=== PATIENT | female | born 1950 | race Caucasian/White ===

== ENCOUNTER 2016-07-01 22:12 | Emergency (ER) | payer OTHER ==
[2016-07-01 22:20] VITALS: BP 148/97; PULSE 118; TEMP 99.3; BMI 28.3
[2016-07-01] MEDS ORDERED: guaiFENesin/D-METHORPHAN HB 10 ML UNIT-DOSE CUPS PO ONE (23:03)
[2016-07-01] MEDS ORDERED: LORATADINE 10 MG TABLET PO ONE (23:03)
--- NOTE | 2016-07-01 23:04 | PDOC ---
History of Present Illness - History of Present Illness Initial Comments: 07/01/16 23:12 Patient is a 66 year old female with significant medical hx of asthma, HTN, HLD , DM, and depression who is presenting to the ED with cough, nausea, and posttussive vomiting for two days. Patient reports when she coughs she becomes short of breath and dizzy; she often vomits after she coughs. The patient also endorses some poor appetite and fever this morning of 101. Denies any sick contacts. Surgical Hx: <Roseanna Bullock - Last Filed: 07/01/16 23:12> <Gab Duran - Last Filed: 07/02/16 06:19> - General Chief Complaint: Respiratory Stated Complaint: ASTHMA Past History <Roseanna Bullock - Last Filed: 07/01/16 23:12> - Past Medical History Anemia: No Asthma: Yes Cancer: No Cardiac Disorders: Yes (palpitations) CVA: No COPD: No CHF: No Dementia: No Diabetes: Yes GI Disorders: No Disorders: Yes (BLADDER PROBLEMS) HTN: Yes Hypercholesterolemia: Yes Liver Disease: Yes (INFLAMMED LIVER) Suicide Attempt (Hx): No Seizures: No Thyroid Disease: No - Psycho/Social/Smoking Cessation Hx Anxiety: No Suicidal Ideation: No Smoking Status: No Smoking History: Never smoked Have you smoked in the past 12 months: No Number of Cigarettes Smoked Daily: 0 Hx Alcohol Use: No Drug/Substance Use Hx: No Substance Use Type: Alcohol Hx Substance Use Treatment: No <Gab Duran - Last Filed: 07/02/16 06:19> - Past Medical History Allergies/Adverse Reactions: Allergies Allergy/AdvReac Type Severity Reaction Status Date / Time Penicillins Allergy Intermediate Rash Verified 07/01/16 22:18 Home Medications: Ambulatory Orders Albuterol Sulfate Inhaler - [Ventolin HFA Inhaler -] 1 - 2 inh PO QID 07/21/15 Aspirin [ASA -] 81 mg PO DAILY 07/21/15 Pantoprazole Sodium [Protonix] 40 mg PO DAILY 07/21/15 Valsartan/Hydrochlorothiazide [Valsartan-Hctz 320-25 mg Tab] 1 each PO DAILY 10/28 Metoprolol Tartrate [Lopressor -] 25 mg PO BID #60 tablet 07/22/15 Albuterol 2.5/Ipratropium 0.5 [Duoneb -] 1 amp NEB Q4HPO amp 07/29/15 Loratadine [Claritin -] 10 mg PO DAILY #30 tablet 12/07/15 Albuterol Sulfate Inhaler - [Ventolin HFA Inhaler -] 2 puff IH Q6H #1 inhaler Benzonatate [Tessalon Pearls -] 100 mg PO TID PRN #21 capsule 07/02/16 Prednisone 60 mg PO DAILY #4 tablet 07/02/16 Sitagliptin Phos/Metformin HCl [Janumet 50-500 mg Tablet] 1 each PO DAILY Review of Systems - Review of Systems Comments:: 07/01/16 23:13 GENERAL/CONSTITUTIONAL: Fever, poor appetite. No chills. No weakness. HEAD, EYES, EARS, NOSE AND THROAT: No change in vision. No ear pain or discharge. No sore throat. CARDIOVASCULAR: No chest pain. RESPIRATORY: Cough with some shortness of breath. No wheezing or hemoptysis. GASTROINTESTINAL: Nausea, vomiting. No diarrhea or constipation. GENITOURINARY: No dysuria, frequency, or change in urination. MUSCULOSKELETAL: No joint or muscle swelling or pain. No neck or back pain. SKIN: No rash NEUROLOGIC: Dizziness. No headache, loss of consciousness, or change in strength /sensation. <Roseanna Bullock - Last Filed: 07/01/16 23:12> *Physical Exam - Vital Signs Last Vital Signs Temp Pulse Resp BP Pulse Ox 99.3 F 118 H 20 148/97 99 07/01/16 22:18 07/01/16 22:18 07/01/16 22:18 07/01/16 22:18 07/01/16 22:18 - Physical Exam Comments: 07/01/16 23:14 GENERAL: Anxious. Awake, alert, and fully oriented HEAD: No signs of trauma EYES: PERRLA, EOMI, sclera anicteric, conjunctiva clear ENT: Auricles normal inspection, hearing grossly normal, nares patent, oropharynx clear without exudates. Moist mucosa NECK: Normal ROM, supple, no lymphadenopathy, JVD, or masses LUNGS: Breath sounds equal, clear to auscultation bilaterally. No wheezes, and no crackles HEART: Regular rate and rhythm, normal S1 and S2, no murmurs, rubs or gallops ABDOMEN: Soft, nontender, normoactive bowel sounds. No guarding, no rebound. No masses EXTREMITIES: Normal range of motion, no edema. No clubbing or cyanosis. No cords, erythema, or tenderness NEUROLOGICAL: Cranial nerves II through XII grossly intact. Normal speech, normal gait SKIN: Warm, Dry, normal turgor, no rashes or lesions noted. ENDOCRINE: No increased thirst. No abnormal weight change. HEMATOLOGIC/LYMPHATIC: No anemia, easy bleeding, or history of blood clots. ALLERGIC/IMMUNOLOGIC: No hives or skin allergy. <Roseanna Bullock - Last Filed: 07/01/16 23:12> - Vital Signs Last Vital Signs Temp Pulse Resp BP Pulse Ox 99.3 F 118 H 20 148/97 99 07/01/16 22:18 07/01/16 22:18 07/01/16 22:18 07/01/16 22:18 07/01/16 22:18 <Gab Duran - Last Filed: 07/02/16 06:19> ED Treatment Course - LABORATORY CBC & Chemistry Diagram: 07/01/16 23:30 07/01/16 23:30 <Gab Duran - Last Filed: 07/02/16 06:19> Medical Decision Making - Medical Decision Making 07/02/16 04:35 This is a 66yo F with cough and viral syndrome. She has a negative evaluation including CXR; lactate is mildly elevated; she is given antitussives and encouraged to follow up with the PMD within the next 24 hours. 07/02/16 06:16 The patient is persistently coughing and says she has chest discomfort. She has been given albuterol/ipratropium and lidocaine nebulized. She has a negative EKG, troponin; there is a significant emotional component to this presentation; her CXR shows only suggestion of bronchitis with peribronchial cuffing and no consolidations. She has been reassured and encouraged to follow up with a snack bar cook <Gab Duran - Last Filed: 07/02/16 06:19> *DC/Admit/Observation/Transfer - Attestations Scribe Attestion: 07/01/16 23:14 Documentation prepared by Roseanna Bullock, acting as medical billing assistant for Gba Duran MD. <Roseanna Bullock - Last Filed: 07/01/16 23:12> - Discharge Dispostion Admit: No Decision to Admit order Date/Time: 07/02/16 02:39 - Attestations Physician Attestion: 07/02/16 04:30 I, Dr. Gab Duran MD, attest that this document has been prepared under my direction and personally reviewed by me in its entirety. I further attest, that it accurately reflects all work, treatment, procedures and medical decision -making performed by me. <Gab Duran - Last Filed: 07/02/16 06:19> Diagnosis at time of Disposition: Acute viral bronchitis, Viral syndrome - Discharge Dispostion Disposition: HOME Condition at time of disposition: Good - Prescriptions Prescriptions: Prednisone 60 mg PO DAILY #4 tablet Benzonatate [Tessalon Pearls -] 100 mg PO TID PRN #21 capsule PRN Reason: Cough Albuterol Sulfate Inhaler - [Ventolin HFA Inhaler -] 2 puff IH Q6H #1 inhaler - Referrals Referrals: Dante Paniagua MD [Primary Care Provider] - Gene Nagel MD [Staff Physician] - Ho Pizano MD [Staff Physician] - - Patient Instructions Additional Instructions: At this time, your symptoms are very likely related to a viral bronchitis, which can last up to a few weeks. There is no indication of any infectious process otherwise, particularly, no suggestion of pneumonia. Please continue to aggressively hydrate yourself and nutrition as tolerated. If there is any change otherwise in your symptoms, please return immediately to the ED; otherwise, please return immediately to the ED.
[2016-07-01 23:45] LABS: BASOPHIL 1.1 % (0-2.0); EOSINOPHIL 3.3 % (0-4.5); MCH 25.2 pg (25.7-33.7); MCHC 32.9 g/dl (32.0-36.0); MEAN CELL VOLUME 76.7 fl (80-96); MEAN PLT VOLUME 6.6 fl (7.5-11.1); NEUTROPHILS 64.7 % (42.8-82.8); PLATELET COUNT 325 K/MM3 (134-434); WHITE BLOOD COUNT 7.8 K/mm3 (4.0-10.0)
[2016-07-01 23:59] LABS: INR 1.12 (0.82-1.09); PROTHROMBIN TIME (PATIENT) 12.4 SEC (9.98-11.88)
[2016-07-02 00:08] LABS: ALBUMIN 3.8 g/dl (3.4-5.0); ANION GAP 10 (8-16); BILIRUBIN,TOTAL 0.3 mg/dL (0.2-1.0); CALCIUM 8.7 mg/dL (8.5-10.1); CO2 28 mmol/L (21-32); CREATININE 1.2 mg/dL (0.55-1.02); GLUCOSE,RANDOM 129 mg/dL (74-106); PHOSPHOROUS 1.6 mg/dL (2.5-4.9); SGOT/AST 23 U/L (15-37); SGPT/ALT 30 U/L (12-78); TOT PROT 7.6 g/dl (6.4-8.2)
[2016-07-02 00:12] LABS: ALK PHOS 84 U/L (45-117); TROPONIN I < 0.02 ng/ml (0.00-0.05)
[2016-07-02] MEDS ORDERED: guaiFENesin/D-METHORPHAN HB 10 ML UNIT-DOSE CUPS ONE (00:17)
[2016-07-02] MEDS ORDERED: LORATADINE 10 MG TABLET ONE (00:18)
[2016-07-02 00:29] LABS: URINE APPEARANCE CLEAR; URINE BILIRUBIN NEGATIVE (NEGATIVE); URINE BLOOD NEGATIVE (NEGATIVE); URINE COLOR LTYELLOW; URINE GLUCOSE (UA) NEGATIVE (NEGATIVE); URINE KETONE NEGATIVE (NEGATIVE); URINE NITRITE NEGATIVE (NEGATIVE); URINE UROBILINOGEN NEGATIVE E.U./dl (0.2-1.0)
[2016-07-02 00:43] LABS: URINE LEUK ESTERASE TRACE (NEGATIVE); URINE PROTEIN 1+ (NEGATIVE)
[2016-07-02 00:44] LABS: URINE BACTERIA RARE /hpf (NONE SEEN); URINE MUCUS RARE; URINE RBC <1 /hpf (0-3); URINE WBC 4 /hpf (3-5)
[2016-07-02] MEDS ORDERED: SODIUM CHLORIDE 1,000 ML IV ONE (01:10)
[2016-07-02] MEDS ORDERED: guaiFENesin/CODEINE 10 ML UNIT-DOSE CUPS PO ONE (03:04)
[2016-07-02] MEDS ORDERED: guaiFENesin/CODEINE 5 ML UNIT-DOSE CUPS PO ONE ×2 (03:14→03:15)
[2016-07-02] MEDS ORDERED: LIDOCAINE HCL 2% (50ML VIAL) DT ONE (05:29)
[2016-07-02] MEDS ORDERED: predniSONE 20 MG TABLET (UD) PO ONE (05:29)
[2016-07-02] MEDS ORDERED: predniSONE 20 MG TABLET (UD) ONE (05:33)
[2016-07-02] MEDS ORDERED: LIDOCAINE HCL 2% (20ML MULTI-DOSE VIAL) NR ONE (05:33)
[2016-07-02] MEDS ORDERED: ALBUTEROL SO4 2.5/IPRATROPIUM 0.5 INH SOL 3 ML VIAL.NEB. NEB ONE ×2 (05:34→05:43)
--- NOTE | 2016-07-03 17:12 | EKG ---
Test Reason : Blood Pressure : / mmHG Vent. Rate : 094 BPM Atrial Rate : 094 BPM P-R Int : 158 ms QRS Dur : 080 ms QT Int : 340 ms P-R-T Axes : 027 -20 074 degrees QTc Int : 425 ms NORMAL SINUS RHYTHM MODERATE VOLTAGE CRITERIA FOR LVH, MAY BE NORMAL VARIANT BORDERLINE ECG WHEN COMPARED WITH ECG OF 06-FEB-2016 08:47, NO SIGNIFICANT CHANGE WAS FOUND Confirmed by ANGEL MILLARD MD ([id number]) on 07/03/2016 5:12:33 PM Referred By: Confirmed By:ANGEL MILLARD MD
== END 2016-07-02 06:44 | disposition home or self-care (01) ==
LOC: JER 22:12
PROC: 3E0 Administration, Physiological Systems and Anatomical Regions, Introduction (ICD-10-PCS; principal; 2016-07-01)
PROC: 3E0F7GC Introduction of Other Therapeutic Substance into Respiratory Tract, Via Natural or Artificial Opening (ICD-10-PCS; 2016-07-01)
DX: J20.9 Acute bronchitis, unspecified (principal); B97.89 Other viral agents as the cause of diseases classified elsewhere; I10 Essential (primary) hypertension; E11.9 Type 2 diabetes mellitus without complications; Z79.84 Long term (current) use of oral hypoglycemic drugs; E78.00 Pure hypercholesterolemia, unspecified
CPT/HCPCS: 36415; 71020-TC; 80053; 81003; 81015; 82550; 82553; 83605; 83735; 83880; 84100; 84484; 85025; 85610; 87804; 93005; 93010; 94640; 96360; 99284-25

== ENCOUNTER → 2016-07-09 | Emergency (ER) | payer OTHER ==
[~2016-07-09] MED LIST: LIDOCAINE HCL 2% (20ML MULTI-DOSE VIAL) NR ONE; LIDOCAINE HCL 2% (50ML VIAL) DT ONE; guaiFENesin/CODEINE 10 ML UNIT-DOSE CUPS PO ONE; guaiFENesin/CODEINE 5 ML UNIT-DOSE CUPS PO ONE
[2016-07-09 20:51] VITALS: BP 180/80; PULSE 108; TEMP 98.6; BMI 28.3
[2016-07-09 22:34] LABS: EOSINOPHIL 3.9 % (0-4.5); MCH 25.5 pg (25.7-33.7); MCHC 33.1 g/dl (32.0-36.0); MEAN CELL VOLUME 77.2 fl (80-96); MEAN PLT VOLUME 6.6 fl (7.5-11.1); NEUTROPHILS 56.6 % (42.8-82.8); PLATELET COUNT 332 K/MM3 (134-434); RDW 15.6 % (11.6-15.6); WHITE BLOOD COUNT 8.6 K/mm3 (4.0-10.0)
[2016-07-09 23:11] LABS: ALBUMIN 3.1 g/dl (3.4-5.0); ANION GAP 10 (8-16); BILIRUBIN,TOTAL 0.1 mg/dL (0.2-1.0); CALCIUM 8.5 mg/dL (8.5-10.1); CO2 27 mmol/L (21-32); GLUCOSE,RANDOM 137 mg/dL (74-106); PHOSPHOROUS 1.5 mg/dL (2.5-4.9); SGOT/AST 17 U/L (15-37); SGPT/ALT 24 U/L (12-78); TOT PROT 6.8 g/dl (6.4-8.2)
[2016-07-09 23:12] LABS: ALK PHOS 74 U/L (45-117); TROPONIN I < 0.02 ng/ml (0.00-0.05)
[2016-07-09 23:14] LABS: INR 1.04 (0.82-1.09); PROTHROMBIN TIME (PATIENT) 11.5 SEC (9.98-11.88)
[2016-07-10 01:29] LABS: URINE APPEARANCE SLCLOUDY; URINE BILIRUBIN NEGATIVE (NEGATIVE); URINE BLOOD NEGATIVE (NEGATIVE); URINE COLOR LTYELLOW; URINE GLUCOSE (UA) NEGATIVE (NEGATIVE); URINE KETONE NEGATIVE (NEGATIVE); URINE NITRITE NEGATIVE (NEGATIVE); URINE PROTEIN NEGATIVE (NEGATIVE); URINE UROBILINOGEN NEGATIVE E.U./dl (0.2-1.0)
[2016-07-10 01:44] LABS: URINE LEUK ESTERASE 3+ (NEGATIVE)
[2016-07-10 01:46] LABS: URINE BACTERIA RARE /hpf (NONE SEEN); URINE RBC 3 /hpf (0-3); URINE WBC 18 /hpf (3-5)
--- NOTE | 2016-07-10 03:10 | PDOC ---
[id number] a 66 year old female with significant medical hx of HTN, HLD, DM, asthma, and depression who is presenting to the ED with cough, shortness of breath, and chest tightness for ten days. Patient states that her chest tightness and shortness of breath are aggravated with exertion. The patient also endorses nausea and posttussive vomiting for the past several days. The patient was seen on 07/01/16 for the same complaint. She has returned to the ED tonight for persistence of her symptoms. Surgical Hx: PMD: Dante Paniagua MD <Roseanna Bullock - Last Filed: 07/10/16 03:19> <Gab Duran - Last Filed: 08/03/16 06:48> - General Chief Complaint: SIRS, Suspected/Possible Stated Complaint: ASTHMA/CHEST TIGHTNESS/COUGH Past History <Roseanna Bullock - Last Filed: 07/10/16 03:19> - Past Medical History Anemia: No Asthma: Yes Cancer: No Cardiac Disorders: Yes (palpitations) CVA: No COPD: No CHF: No Dementia: No Diabetes: Yes GI Disorders: No Disorders: Yes (BLADDER PROBLEMS) HTN: Yes Hypercholesterolemia: Yes Liver Disease: Yes (INFLAMMED LIVER) Suicide Attempt (Hx): No Seizures: No Thyroid Disease: No - Psycho/Social/Smoking Cessation Hx Anxiety: No Suicidal Ideation: No Smoking Status: No Smoking History: Never smoked Have you smoked in the past 12 months: No Number of Cigarettes Smoked Daily: 0 Hx Alcohol Use: No Drug/Substance Use Hx: No Substance Use Type: Alcohol Hx Substance Use Treatment: No <Gab Duran - Last Filed: 08/03/16 06:48> - Past Medical History Allergies/Adverse Reactions: Allergies Allergy/AdvReac Type Severity Reaction Status Date / Time Penicillins Allergy Intermediate Rash Verified 07/09/16 20:50 Home Medications: Ambulatory Orders Albuterol Sulfate Inhaler - [Ventolin HFA Inhaler -] 1 - 2 inh PO QID 07/21/15 Aspirin [ASA -] 81 mg PO DAILY 07/21/15 Pantoprazole Sodium [Protonix] 40 mg PO DAILY 07/21/15 Valsartan/Hydrochlorothiazide [Valsartan-Hctz 320-25 mg Tab] 1 each PO DAILY 10/28 Metoprolol Tartrate [Lopressor -] 25 mg PO BID #60 tablet 07/22/15 Albuterol 2.5/Ipratropium 0.5 [Duoneb -] 1 amp NEB Q4HPO amp 07/29/15 Loratadine [Claritin -] 10 mg PO DAILY #30 tablet 12/07/15 Sitagliptin Phos/Metformin HCl [Janumet 50-500 mg Tablet] 1 each PO DAILY Prednisone 10 mg PO DAILY 07/09/16 Review of Systems - Review of Systems Comments:: 07/10/16 03:17 GENERAL/CONSTITUTIONAL: Fever, poor appetite. No chills. No weakness. HEAD, EYES, EARS, NOSE AND THROAT: No change in vision. No ear pain or discharge. No sore throat. CARDIOVASCULAR: No chest pain. RESPIRATORY: Cough with some shortness of breath. No wheezing or hemoptysis. GASTROINTESTINAL: Nausea, vomiting. No diarrhea or constipation. GENITOURINARY: No dysuria, frequency, or change in urination. MUSCULOSKELETAL: No joint or muscle swelling or pain. No neck or back pain. SKIN: No rash NEUROLOGIC: Dizziness. No headache, loss of consciousness, or change in strength /sensation. <Roseanna Bullock - Last Filed: 07/10/16 03:19> *Physical Exam - Vital Signs Last Vital Signs Temp Pulse Resp BP Pulse Ox 98.6 F 108 H 24 180/80 99 07/09/16 20:49 07/09/16 20:49 07/09/16 20:49 07/09/16 20:49 07/09/16 20:49 - Physical Exam Comments: 07/10/16 03:18 GENERAL: Anxious. Awake, alert, and fully oriented HEAD: No signs of trauma EYES: PERRLA, EOMI, sclera anicteric, conjunctiva clear ENT: Auricles normal inspection, hearing grossly normal, nares patent, oropharynx clear without exudates. Moist mucosa NECK: Normal ROM, supple, no lymphadenopathy, JVD, or masses LUNGS: Breath sounds equal, clear to auscultation bilaterally. No wheezes, and no crackles HEART: Regular rate and rhythm, normal S1 and S2, no murmurs, rubs or gallops ABDOMEN: Soft, nontender, normoactive bowel sounds. No guarding, no rebound. No masses EXTREMITIES: Normal range of motion, no edema. No clubbing or cyanosis. No cords, erythema, or tenderness NEUROLOGICAL: Cranial nerves II through XII grossly intact. Normal speech, normal gait SKIN: Warm, Dry, normal turgor, no rashes or lesions noted. ENDOCRINE: No increased thirst. No abnormal weight change. HEMATOLOGIC/LYMPHATIC: No anemia, easy bleeding, or history of blood clots. ALLERGIC/IMMUNOLOGIC: No hives or skin allergy. <Roseanna Bullock - Last Filed: 07/10/16 03:19> - Vital Signs Last Vital Signs Temp Pulse Resp BP Pulse Ox 98.6 F 108 H 24 180/80 99 07/09/16 20:49 07/09/16 20:49 07/09/16 20:49 07/09/16 20:49 07/09/16 20:49 <Gab Duran - Last Filed: 08/03/16 06:48> ED Treatment Course - LABORATORY CBC & Chemistry Diagram: 07/09/16 22:25 07/09/16 22:25 - ADDITIONAL ORDERS Additional order review: Laboratory Results 07/10/16 07/09/16 07/09/16 01:00 22:25 22:25 INR Sodium 143 Potassium 4.1 Chloride 106 Carbon Dioxide 27 Anion Gap 10 BUN 17 Creatinine 1.0 Creat Clearance w eGFR 55.64 Random Glucose 137 H Lactic Acid 1.143 Calcium 8.5 Phosphorus 1.5 L Magnesium 2.0 Total Bilirubin 0.1 L D AST 17 D ALT 24 Alkaline Phosphatase 74 Creatine Kinase 71 Troponin I < 0.02 B-Natriuretic Peptide 55.45 Total Protein 6.8 Albumin 3.1 L Lipase 188 Urine Color Ltyellow Urine Appearance Slcloudy Urine pH 8.0 Ur Specific [place] 1.018 Urine Protein Negative Urine Glucose (UA) Negative Urine Ketones Negative Urine Blood Negative Urine Nitrite Negative Urine Bilirubin Negative Urine Urobilinogen Negative Ur Leukocyte Esterase 3+ H D Urine RBC 3 Urine WBC 18 Ur Epithelial Cells Rare Urine Bacteria Rare 07/09/16 22:25 INR 1.04 Sodium Potassium Chloride Carbon Dioxide Anion Gap BUN Creatinine Creat Clearance w eGFR Random Glucose Lactic Acid Calcium Phosphorus Magnesium Total Bilirubin AST ALT Alkaline Phosphatase Creatine Kinase Troponin I B-Natriuretic Peptide Total Protein Albumin Lipase Urine Color Urine Appearance Urine pH Ur Specific [place] Urine Protein Urine Glucose (UA) Urine Ketones Urine Blood Urine Nitrite Urine Bilirubin Urine Urobilinogen Ur Leukocyte Esterase Urine RBC Urine WBC Ur Epithelial Cells Urine Bacteria 07/09/16 22:25 RBC 4.56 MCV 77.2 L MCHC 33.1 RDW 15.6 MPV 6.6 L Neutrophils % 56.6 Lymphocytes % 29.3 D Monocytes % 9.2 Eosinophils % 3.9 Basophils % 1.0 - RADIOLOGY Radiograph Interpretation: 07/10/16 03:19 Chest X-Ray Impression: No significant interval change or acute lung disease is present. Reported By: Dre Valenzuela MD <Roseanna Bullock - Last Filed: 07/10/16 03:19> - LABORATORY CBC & Chemistry Diagram: 07/09/16 22:25 07/09/16 22:25 - ADDITIONAL ORDERS Additional order review: Laboratory Results 07/10/16 07/09/16 07/09/16 01:00 22:25 22:25 INR Sodium 143 Potassium 4.1 Chloride 106 Carbon Dioxide 27 Anion Gap 10 BUN 17 Creatinine 1.0 Creat Clearance w eGFR 55.64 Random Glucose 137 H Lactic Acid 1.143 Calcium 8.5 Phosphorus 1.5 L Magnesium 2.0 Total Bilirubin 0.1 L D AST 17 D ALT 24 Alkaline Phosphatase 74 Creatine Kinase 71 Troponin I < 0.02 B-Natriuretic Peptide 55.45 Total Protein 6.8 Albumin 3.1 L Lipase 188 Urine Color Ltyellow Urine Appearance Slcloudy Urine pH 8.0 Ur Specific [place] 1.018 Urine Protein Negative Urine Glucose (UA) Negative Urine Ketones Negative Urine Blood Negative Urine Nitrite Negative Urine Bilirubin Negative Urine Urobilinogen Negative Ur Leukocyte Esterase 3+ H D Urine RBC 3 Urine WBC 18 Ur Epithelial Cells Rare Urine Bacteria Rare 07/09/16 22:25 INR 1.04 Sodium Potassium Chloride Carbon Dioxide Anion Gap BUN Creatinine Creat Clearance w eGFR Random Glucose Lactic Acid Calcium Phosphorus Magnesium Total Bilirubin AST ALT Alkaline Phosphatase Creatine Kinase Troponin I B-Natriuretic Peptide Total Protein Albumin Lipase Urine Color Urine Appearance Urine pH Ur Specific [place] Urine Protein Urine Glucose (UA) Urine Ketones Urine Blood Urine Nitrite Urine Bilirubin Urine Urobilinogen Ur Leukocyte Esterase Urine RBC Urine WBC Ur Epithelial Cells Urine Bacteria 07/09/16 22:25 RBC 4.56 MCV 77.2 L MCHC 33.1 RDW 15.6 MPV 6.6 L Neutrophils % 56.6 Lymphocytes % 29.3 D Monocytes % 9.2 Eosinophils % 3.9 Basophils % 1.0 - RADIOLOGY Radiology Studies Ordered: Category Date Time Status CHEST X-RAY PORTABLE* [RAD] Stat Radiology 07/09/16 21:28 Completed <Gab Duran - Last Filed: 08/03/16 06:48> Medical Decision Making - Medical Decision Making 07/10/16 03:13 This is a 66yo F with ongoing dry cough and irritation with no other symptoms. She informs there has been minimal improvement in her symptoms after her recent evaluation. 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 She is encouraged to follow up with the PMD within the next 24 hours. I have again discussed with the patient the low likelihood of there being improvement with intervention and I have reminded her acute bronchitis can last up to 6 months. She is instructed to return if there is any change. <Gab Duran - Last Filed: 08/03/16 06:48> *DC/Admit/Observation/Transfer - Attestations Scribe Attestion: 07/10/16 03:18 Documentation prepared by Roseanna Bullock, acting as medical lab technician for Gab Duran MD. <Roseanna Bullock - Last Filed: 07/10/16 03:19> - Attestations Physician Attestion: 08/03/16 06:48 I, Dr. Gab Duran MD, attest that this document has been prepared under my direction and personally reviewed by me in its entirety. I further attest, that it accurately reflects all work, treatment, procedures and medical decision -making performed by me. <Gab Duran - Last Filed: 08/03/16 06:48> - Discharge Dispostion Disposition: HOME - Referrals Referrals: Dante Paniagua MD [Primary Care Provider] -
--- NOTE | 2016-07-10 13:30 | EKG ---
Test Reason : Blood Pressure : / mmHG Vent. Rate : 082 BPM Atrial Rate : 082 BPM P-R Int : 160 ms QRS Dur : 082 ms QT Int : 340 ms P-R-T Axes : 047 -13 077 degrees QTc Int : 397 ms NORMAL SINUS RHYTHM MODERATE VOLTAGE CRITERIA FOR LVH, MAY BE NORMAL VARIANT BORDERLINE ECG WHEN COMPARED WITH ECG OF 01-JUL-2016 23:38, NO SIGNIFICANT CHANGE WAS FOUND Confirmed by ANGEL MILLARD MD ([id number]) on 07/10/2016 1:30:35 PM Referred By: Confirmed By:ANGEL MILLARD MD
== END | disposition home or self-care (01) ==
LOC: JER 20:33
DX: J20.9 Acute bronchitis, unspecified (principal); I10 Essential (primary) hypertension; E11.9 Type 2 diabetes mellitus without complications; Z79.84 Long term (current) use of oral hypoglycemic drugs; E78.00 Pure hypercholesterolemia, unspecified; J45.909 Unspecified asthma, uncomplicated
CPT/HCPCS: 36415; 71010-TC; 80053; 81003; 81015; 82550; 83605; 83690; 83735; 83880; 84100; 84484; 85025; 85610; 87040; 87086; 93005; 93010; 99282-25

== ENCOUNTER 2016-12-14 05:13 | Day surgery (SDC) | payer OTHER ==
[2016-12-10 14:38] VITALS: BMI 27.9
[2016-12-14] MEDS ORDERED: MIDAZOLAM HCL 2 MG/2 ML SINGLE DOSE VIAL ONE (08:04)
--- NOTE | 2016-12-14 08:14 | HP ---
Admitting History and Physical - Admission Chief Complaint: Abnormal sonogram History of Present Illness: 66 yo with abnormal sonogram and suspicion of endometrial polyp, is Pre op for D &C Hysteroscopy. History Source: Patient Limitations to Obtaining History: No Limitations - Past Medical History Cardiovascular: Yes: HTN, Other (VPCs) Pulmonary: Yes: Asthma Gastrointestinal: Yes: Other (Hepatomegaly) ...: No Psych: Yes: Anxiety Endocrine: Yes: Diabetes Mellitus - Past Surgical History Past Surgical History: Yes: - Smoking History Smoking history: Never smoked Have you smoked in the past 12 months: No Aproximately how many cigarettes per day: 0 - Alcohol/Substance Use Hx Alcohol Use: No History of Substance Use: reports: None - Social History ADL: Independent History of Recent Travel: No Home Medications - Allergies Allergies/Adverse Reactions: Allergies Allergy/AdvReac Type Severity Reaction Status Date / Time Penicillins Allergy Intermediate Rash Verified 07/09/16 20:50 - Home Medications Home Medications: Ambulatory Orders Albuterol Sulfate Inhaler - [Ventolin HFA Inhaler -] 1 - 2 inh PO QID 07/21/15 Aspirin [ASA -] 81 mg PO DAILY 07/21/15 Valsartan/Hydrochlorothiazide [Valsartan-Hctz 320-25 mg Tab] 1 each PO DAILY 10/28 Metoprolol Tartrate [Lopressor -] 25 mg PO BID #60 tablet 07/22/15 Loratadine [Claritin -] 10 mg PO DAILY #30 tablet 12/07/15 Sitagliptin Phos/Metformin HCl [Janumet 50-500 mg Tablet] 1 each PO DAILY Ascorbate Calcium [Vitamin C] 500 mg PO DAILY 12/10/16 Folic Acid 1 mg PO DAILY 12/10/16 Metoclopramide HCl 5 mg PO DAILY 12/10/16 Omeprazole 40 mg PO DAILY 12/10/16 Pitavastatin Calcium [Livalo] 2 mg PO DAILY 12/10/16 Family Disease History - Family Disease History Family History: Unremarkable Family Disease History: CA: Mother (Bladder) Review of Systems - Review of Systems Constitutional: reports: No Symptoms Eyes: reports: No Symptoms HENT: reports: No Symptoms Neck: reports: No Symptoms Cardiovascular: reports: No Symptoms Respiratory: reports: No Symptoms Gastrointestinal: reports: No Symptoms Genitourinary: reports: No Symptoms Breasts: reports: No Symptoms Reported Musculoskeletal: reports: No Symptoms Integumentary: reports: No Symptoms Neurological: reports: No Symptoms Endocrine: reports: No Symptoms Hematology/Lymphatic: reports: No Symptoms Psychiatric: reports: No Symptoms Pain Intensity: 0 Physical Examination Vital Signs: Vital Signs Temperature 98.4 F 12/14/16 07:04 Pulse Rate 82 12/14/16 07:04 Respiratory Rate 20 12/14/16 07:04 Blood Pressure 158/93 12/14/16 07:04 O2 Sat by Pulse Oximetry (%) 100 12/14/16 07:04 Constitutional: Yes: Well Nourished Eyes: Yes: Conjunctiva Clear HENT: Yes: Atraumatic Neck: Yes: Supple Cardiovascular: Yes: Regular Rate and Rhythm Respiratory: Yes: Regular Gastrointestinal: Yes: Normal Bowel Sounds Neurological: Yes: Alert, Oriented Psychiatric: Yes: Alert, Oriented Assessment/Plan Abnormal sonogram Endometrial polyp Pre op for D&C Hysteroscopy Consent signed Anesthesia to see patient
--- NOTE | 2016-12-14 08:15 | OP ---
Operative Note - Note: Operative Date: 12/14/16 Pre-Operative Diagnosis: Endometrial polyp Operation: D&C Hysteroscopy Findings: Submucosal fibroid Post-Operative Diagnosis: Other (Submucosal fibroid) Surgeon: Imani Berry Anesthesia: General Specimens Removed: Endometrial curettings Estimated Blood Loss (mls): 2
[2016-12-14] MEDS ORDERED: PROPOFOL 20 ML ONE ×2 (09:02→09:10)
[2016-12-14] MEDS ORDERED: ONDANSETRON 4 MG/2 ML VIAL IVPUSH PRN (09:27)
[2016-12-14] MEDS ORDERED: oxyCODONE HCL 5 MG TABLET PO PRN (09:27)
[2016-12-14] MEDS ORDERED: KETOROLAC TROMETHAMINE 30 MG/1 ML VIAL IVPUSH ONE (09:27)
[2016-12-14] MEDS ORDERED: KETOROLAC TROMETHAMINE 30 MG/1 ML VIAL ONE (09:28)
[2016-12-14] MEDS ORDERED: LACTATED RINGERS SOLUTION 1,000 ML IV SCH (09:30)
[2016-12-14 10:56] VITALS: TEMP 98
[2016-12-14 12:12] VITALS: BP 155/78; PULSE 88
--- NOTE | 2016-12-18 12:48 | PATH ---
Surgical Pathology Report Patient Name: FATIMAH GALDAMEZ [facility]. Rec. #: [id number] /Age/Gender: 1950 (Age: 66) / F Account: [id number] Location: [facility] SURGICAL Taken: 12/14/2016 Received: 12/14/2016 Reported: 12/18/2016 Physicians: Imani Berry M.D. Specimen(s) Received ENDOMETRIAL CURETTINGS Clinical History Endometrial polyp Final Diagnosis ENDOMETRIUM, CURETTAGE: SCANT STRIPS OF ATROPHIC ENDOMETRIUM. FRAGMENTS OF BENIGN ENDOCERVICAL TISSUE. FRAGMENTS OF BENIGN SQUAMOUS EPITHELIUM. Electronically Signed Nixon Martines M.D. Gross Description Received in formalin labeled "endometrial curetting" is a 0.8 x 0.7 x 0.1 cm aggregate of blood-tinged mucus, possibly containing soft tissue fragments. The formalin is filtered and the specimen is entirely submitted in one cassette. /12/14/2016 saudi12/14/2016
== END 2016-12-14 12:10 | disposition home or self-care (01) ==
LOC: JASU-SURG 05:13
PROVIDERS: ATTEND Obstetrics & Gynecology
PROC: 0UDB8ZX Extraction of Endometrium, Via Natural or Artificial Opening Endoscopic, Diagnostic (ICD-10-PCS; principal; 2016-12-14 08:30)
DX: D25.0 Submucous leiomyoma of uterus (principal)
CPT/HCPCS: 88305-TC; 94760

== ENCOUNTER 2017-04-16 04:32 | Emergency (ER) | payer OTHER ==
--- NOTE | 2017-04-16 04:36 | PDOC ---
History of Present Illness - General History Source: Patient Exam Limitations: No Limitations - History of Present Illness Initial Comments: 04/16/17 05:21 Pt is a 66 yo F with a PMHx of HTN, DM, HLD who presents to the ED with diffuse body aches, productive cough and subjective fevers for the past 3 days. Patient has been taking Tylenol at home with no relief. Patient reports receiving the flu vaccine this year. Patient reports to the ED for further evaluation. Patient denies any sick contacts or recent travel. PCP: Dr. Ortiz <Tracy Aldridge - Last Filed: 04/16/17 05:22> <Anh Serra - Last Filed: 04/16/17 06:30> - General Stated Complaint: SHORTNESS OF BREATH Time Seen by Provider: 04/16/17 04:35 Past History <Tracy Aldridge - Last Filed: 04/16/17 05:22> - Past Medical History Anemia: No Asthma: Yes Cancer: No Cardiac Disorders: Yes (palpitations) CVA: No COPD: No CHF: No Dementia: No Diabetes: Yes GI Disorders: No Disorders: Yes (BLADDER PROBLEMS) HTN: Yes Hypercholesterolemia: Yes Liver Disease: Yes (INFLAMMED LIVER) Seizures: No Thyroid Disease: No - Suicide/Smoking/Psychosocial Hx Smoking Status: No Smoking History: Never smoked Have you smoked in the past 12 months: No Number of Cigarettes Smoked Daily: 0 Hx Alcohol Use: No Drug/Substance Use Hx: No Substance Use Type: Alcohol Hx Substance Use Treatment: No <Anh Serra - Last Filed: 04/16/17 06:30> - Past Medical History Allergies/Adverse Reactions: Allergies Allergy/AdvReac Type Severity Reaction Status Date / Time Penicillins Allergy Intermediate Rash Verified 04/16/17 04:41 Home Medications: Ambulatory Orders Albuterol Sulfate Inhaler - [Ventolin HFA Inhaler -] 1 - 2 inh PO QID 07/21/15 Aspirin [ASA -] 81 mg PO DAILY 07/21/15 Valsartan/Hydrochlorothiazide [Valsartan-Hctz 320-25 mg Tab] 1 each PO DAILY 10/28 Metoprolol Tartrate [Lopressor -] 25 mg PO BID #60 tablet 07/22/15 Loratadine [Claritin -] 10 mg PO DAILY #30 tablet 12/07/15 Sitagliptin Phos/Metformin HCl [Janumet 50-500 mg Tablet] 1 each PO DAILY Ascorbate Calcium [Vitamin C] 500 mg PO DAILY 12/10/16 Folic Acid 1 mg PO DAILY 12/10/16 Metoclopramide HCl 5 mg PO DAILY 12/10/16 Omeprazole 40 mg PO DAILY 12/10/16 Pitavastatin Calcium [Livalo] 2 mg PO DAILY 12/10/16 Oseltamivir Phosphate [Tamiflu -] 75 mg PO BID #10 capsule 04/16/17 Review of Systems - Review of Systems Able to Perform ROS?: Yes Comments:: 04/16/17 05:21 GENERAL/CONSTITUTIONAL: + fever, chills. No weakness. +body aches. HEAD, EYES, EARS, NOSE AND THROAT: No change in vision. No ear pain or discharge. No sore throat. CARDIOVASCULAR: No chest pain or shortness of breath. RESPIRATORY: + cough. No wheezing, or hemoptysis. GASTROINTESTINAL: No nausea, vomiting, diarrhea or constipation. GENITOURINARY: No dysuria, frequency, or change in urination. MUSCULOSKELETAL: No joint or muscle swelling or pain. No neck or back pain. SKIN: No rash NEUROLOGIC: No headache, vertigo, loss of consciousness, or change in strength/ sensation. ENDOCRINE: No increased thirst. No abnormal weight change. HEMATOLOGIC/LYMPHATIC: No anemia, easy bleeding, or history of blood clots. ALLERGIC/IMMUNOLOGIC: No hives or skin allergy. <Tracy Aldridge - Last Filed: 04/16/17 05:22> *Physical Exam - Vital Signs Last Vital Signs Temp Pulse Resp BP Pulse Ox 98.6 F 89 20 136/75 100 04/16/17 04:41 04/16/17 04:41 04/16/17 04:41 04/16/17 04:41 04/16/17 04:41 - Physical Exam Comments: 04/16/17 05:21 GENERAL: Awake, alert, and fully oriented, in no acute distress. +Warm to touch. HEAD: No signs of trauma EYES: PERRLA, EOMI, sclera anicteric, conjunctiva clear ENT: Auricles normal inspection, hearing grossly normal, nares patent, oropharynx clear without exudates. Moist mucosa NECK: Normal ROM, supple, no lymphadenopathy, JVD, or masses LUNGS: Breath sounds equal, clear to auscultation bilaterally. No wheezes, and no crackles HEART: Regular rate and rhythm, normal S1 and S2, no murmurs, rubs or gallops ABDOMEN: Soft, nontender, normoactive bowel sounds. No guarding, no rebound. No masses EXTREMITIES: Normal range of motion, no edema. No clubbing or cyanosis. No cords, erythema, or tenderness NEUROLOGICAL: Cranial nerves II through XII grossly intact. Normal speech, normal gait SKIN: Warm, Dry, normal turgor, no rashes or lesions noted. <Tracy Aldridge - Last Filed: 04/16/17 05:22> ED Treatment Course - LABORATORY CBC & Chemistry Diagram: 04/16/17 05:50 04/16/17 05:50 <Anh Serra - Last Filed: 04/16/17 06:30> Medical Decision Making - Medical Decision Making 04/16/17 05:17 PT COMES WITH BODY ACHES AND FLU LIKE SYMPTOMS. SHE HAS HAD NOTHING TO EAT AND DRINK. 04/16/17 06:06 CXR appears normal. Pt has a flu culture pending; labs pending. Pt will be signed out to the day ER team. <Anh Serra - Last Filed: 04/16/17 06:30> *DC/Admit/Observation/Transfer - Attestations Scribe Attestion: 04/16/17 05:22 Documentation prepared by Tracy Aldridge, acting as director of medical review for Anh Serra MD/DO. <Tracy Aldridge - Last Filed: 04/16/17 05:22> - Discharge Dispostion Admit: No <Anh Serra - Last Filed: 04/16/17 06:30> Diagnosis at time of Disposition: Influenza - Discharge Dispostion Disposition: HOME Condition at time of disposition: Stable - Prescriptions Prescriptions: Oseltamivir Phosphate [Tamiflu -] 75 mg PO BID #10 capsule - Referrals Referrals: Karissa Ortiz MD [Primary Care Provider] - - Patient Instructions Printed Discharge Instructions: Influenza
[2017-04-16 04:44] VITALS: BP 136/75; PULSE 89; TEMP 98.6; BMI 27.4
[2017-04-16] MEDS ORDERED: SODIUM CHLORIDE 0.9% 1000 ML INFUS.BAG IV ONE (05:13)
[2017-04-16] MEDS ORDERED: ACETAMINOPHEN 1000 MG/100 ML VIAL (NON FORMULARY) IVPB ONE (05:18)
[2017-04-16] MEDS ORDERED: ACETAMINOPHEN INJECTION 100 ML IVPB ONE (05:22)
[2017-04-16] MEDS ORDERED: OSELTAMIVIR PHOSPHATE 75 MG CAPSULE PO ONE (06:27)
[2017-04-16 06:30] LABS: BASO % 0.7 % (0-2.0); EOS % 0.3 % (0-4.5); HEMATOCRIT 36.5 % (32.4-45.2); HEMOGLOBIN 11.9 GM/dL (10.7-15.3); LYMPH % 24.1 % (8-40); MCH 25.2 pg (25.7-33.7); MCHC 32.6 g/dl (32.0-36.0); MEAN CELL VOLUME 77.3 fl (80-96); MEAN PLT VOLUME 7.4 fl (7.5-11.1); MONO % 8.5 % (3.8-10.2); NEUT % 66.4 % (42.8-82.8); PLATELET COUNT 271 K/MM3 (134-434); RBC 4.73 M/mm3 (3.60-5.2); RDW 15.5 % (11.6-15.6); WHITE BLOOD COUNT 5.7 K/mm3 (4.0-10.0)
--- NOTE | 2017-04-17 09:38 | EKG ---
Test Reason : Blood Pressure : / mmHG Vent. Rate : 080 BPM Atrial Rate : 080 BPM P-R Int : 164 ms QRS Dur : 088 ms QT Int : 390 ms P-R-T Axes : 043 -07 076 degrees QTc Int : 449 ms NORMAL SINUS RHYTHM MINIMAL VOLTAGE CRITERIA FOR LVH, MAY BE NORMAL VARIANT BORDERLINE ECG Confirmed by MD Figueroa, Rey ([id number]) on 04/17/2017 9:38:13 AM Referred By: Confirmed By:Rey Marti MD
== END 2017-04-16 07:20 | disposition home or self-care (01) ==
LOC: JER 04:32
PROC: 3E033NZ Introduction of Analgesics, Hypnotics, Sedatives into Peripheral Vein, Percutaneous Approach (ICD-10-PCS; principal; 2017-04-16)
DX: J10.1 Influenza due to other identified influenza virus with other respiratory manifestations (principal); I10 Essential (primary) hypertension; E11.9 Type 2 diabetes mellitus without complications; Z79.84 Long term (current) use of oral hypoglycemic drugs; E78.00 Pure hypercholesterolemia, unspecified
CPT/HCPCS: 36415; 71045-TC; 85025; 87804; 93005; 93010; 96374; 99282-25

== ENCOUNTER 2018-01-05 00:11 | Inpatient (IN) | payer OTHER ==
--- NOTE | 2018-01-05 00:23 | PDOC ---
Attending Attestation - Resident Resident Name: Dora Prado - ED Attending Attestation I have performed the following: I have examined & evaluated the patient, The case was reviewed & discussed with the resident, I agree w/resident's findings & plan, Exceptions are as noted - HPI HPI: 01/05/18 03:01 Agree with Residents HPI - Physicial Exam PE: 01/05/18 03:01 Agree with residents PE - Medical Decision Making 01/05/18 04:36 67 years old past medical history significant for hypertension. Diabetes hyperlipidemia presents emergency department with episode of vertigo lightheadedness, located by chest pain shortness of breath relating to her shoulders EKG demonstrates sinus rhythm no ST elevations or T-wave inversions patient's vertigo has since resolved. Labs unremarkable troponin negative however heart score is 5 We'll admit to medicine for further management. 01/05/18 04:36 Heart Score/ECG Review - History History: Moderately suspicious - Electrocardiogram EKG: Normal - Age Age: >/= 65 - Risk Factors Risk Factors Heart Score: Yes Hx Hypercholesterolemia, Yes Hx Hypertension, Yes Hx Diabetes Based on the list above the patient has:: >/=3 risk factors or Hx atherosclerotic disease - Troponin Troponin: </= normal limit - Score Heart Score - Total: 5
[2018-01-05 00:24] VITALS: BMI 28.3
[2018-01-05] MEDS ORDERED: morphine CARPU-JECT 4 MG/1 ML DISP.SYRIN IVPUSH ONE (01:07)
[2018-01-05] MEDS ORDERED: MORPHINE SULFATE 2 MG/ML VIAL ONE (01:09)
[2018-01-05 03:00] LABS: BASO % 1.2 % (0-2.0); EOS % 1.3 % (0-4.5); HEMATOCRIT 33.7 % (32.4-45.2); HEMOGLOBIN 11.1 GM/dL (10.7-15.3); LYMPH % 20.1 % (8-40); MCH 25.5 pg (25.7-33.7); MCHC 32.9 g/dl (32.0-36.0); MEAN CELL VOLUME 77.5 fl (80-96); MEAN PLT VOLUME 6.7 fl (7.5-11.1); MONO % 9.1 % (3.8-10.2); NEUT % 68.3 % (42.8-82.8); PLATELET COUNT 346 K/MM3 (134-434); RBC 4.34 M/mm3 (3.60-5.2); RDW 15.4 % (11.6-15.6); WHITE BLOOD COUNT 10.3 K/mm3 (4.0-10.0)
--- NOTE | 2018-01-05 03:02 | PDOC ---
History of Present Illness - General Chief Complaint: Shortness of Breath Stated Complaint: S.O.B Time Seen by Provider: 01/05/18 00:16 - History of Present Illness Initial Comments: 67 year old female with PMH of HTN, GERD, Diabetes, and HLD presenting with shortness of breath and central chest tightness radiating to bilateral shoulders for the past 15 minutes. States she was sitting at home on her bed when she had some sudden central chest tightness which she says radiates to her shoulders. Her son found her there and she appeared pale, diaphoretic, nauseous , and generally unwell. She does admit to chronic shoulder pain for the past few weeks that is being worked up by Dr. Ortiz. Denies fevers, chills, vomiting , diarrhea, constipation, or other issues. 01/05/18 02:52 Past History - Past Medical History Allergies/Adverse Reactions: Allergies Allergy/AdvReac Type Severity Reaction Status Date / Time Penicillins Allergy Intermediate Rash Verified 01/05/18 00:18 morphine Allergy Mild Rash Uncoded 01/05/18 04:20 Home Medications: Ambulatory Orders Albuterol Sulfate Inhaler - [Ventolin HFA Inhaler -] 1 - 2 inh PO QID 07/21/15 Aspirin [ASA -] 81 mg PO DAILY 07/21/15 Valsartan/Hydrochlorothiazide [Valsartan-Hctz 320-25 mg Tab] 1 each PO DAILY 10/28 Metoprolol Tartrate [Lopressor -] 25 mg PO BID #60 tablet 07/22/15 Loratadine [Claritin -] 10 mg PO DAILY #30 tablet 12/07/15 Sitagliptin Phos/Metformin HCl [Janumet 50-500 mg Tablet] 1 each PO DAILY Ascorbate Calcium [Vitamin C] 500 mg PO DAILY 12/10/16 Folic Acid 1 mg PO DAILY 12/10/16 Metoclopramide HCl 5 mg PO DAILY 12/10/16 Omeprazole 40 mg PO DAILY 12/10/16 Pitavastatin Calcium [Livalo] 2 mg PO DAILY 12/10/16 Oseltamivir Phosphate [Tamiflu -] 75 mg PO BID #10 capsule 04/16/17 Anemia: No Asthma: Yes Cancer: No Cardiac Disorders: Yes (palpitations) CVA: No COPD: No CHF: No Dementia: No Diabetes: Yes GI Disorders: No Disorders: Yes (BLADDER PROBLEMS) HTN: Yes Hypercholesterolemia: Yes Liver Disease: Yes (INFLAMMED LIVER) Seizures: No Thyroid Disease: No - Suicide/Smoking/Psychosocial Hx Smoking Status: No Smoking History: Never smoked Have you smoked in the past 12 months: No Number of Cigarettes Smoked Daily: 0 Information on smoking cessation initiated: No Hx Alcohol Use: No Drug/Substance Use Hx: No Substance Use Type: Alcohol Hx Substance Use Treatment: No Review of Systems - Review of Systems Constitutional: No: Chills, Diaphoresis, Fever, Loss of Appetite HEENTM: No: Blurred Vision, Tearing, Recent change in vision, Double Vision Respiratory: Yes: Shortness of Breath. No: Cough, SOB with Exertion, SOB at Rest Cardiac (ROS): Yes: Chest Pain. No: Edema, Irregular Heart Rate, Lightheadedness, Palpitations, Syncope, Chest Tightness ABD/GI: Yes: Nausea. No: Constipated, Diarrhea, Poor Appetite, Vomiting : No: Burning, Dysuria *Physical Exam - Vital Signs Last Vital Signs Temp Pulse Resp BP Pulse Ox 98.3 F 66 20 120/89 97 01/05/18 00:18 01/05/18 00:18 01/05/18 00:18 01/05/18 00:01/05/18 00:18 - Physical Exam General Appearance: Yes: Nourished, Appropriately Dressed, Apparent Distress, Mild Distress HEENT: positive: EOMI, LILLIE, Normal ENT Inspection, Normal Voice, TMs Normal. negative: Symmetrical Neck: positive: Trachea midline, Normal Thyroid, Supple. negative: Tender, Rigid Respiratory/Chest: positive: Lungs Clear, Normal Breath Sounds, Respiratory Distress, Labored Respiration. negative: Chest Tender, Accessory Muscle Use Cardiovascular: positive: Regular Rhythm, Regular Rate Gastrointestinal/Abdominal: positive: Normal Bowel Sounds, Flat, Soft. negative : Tender Lymphatic: negative: Adenopathy, Tenderness Musculoskeletal: positive: Other (extermely tender in shoulders bilaterally with limited ROM). negative: Normal Inspection Extremity: positive: Normal Capillary Refill, Normal Range of Motion. negative : Normal Inspection (shoulder pain bilaterally with movement), Tender Integumentary: positive: Normal Color, Dry, Warm Neurologic: positive: Fully Oriented, Alert, Normal Mood/Affect, Normal Response , Motor Strength 5/5. negative: Abnormal Cranial NS Heart Score/ECG Review - History History: Moderately suspicious - Electrocardiogram EKG: Normal - Age Age: >/= 65 - Risk Factors Risk Factors Heart Score: Yes Hx Hypercholesterolemia, Yes Hx Hypertension, Yes Hx Diabetes Based on the list above the patient has:: >/=3 risk factors or Hx atherosclerotic disease - Troponin Troponin: </= normal limit - Score Heart Score - Total: 5 ED Treatment Course - LABORATORY CBC & Chemistry Diagram: 01/05/18 02:48 01/05/18 02:51 - ADDITIONAL ORDERS Additional order review: Laboratory Results 01/05/18 02:05 Sodium Cancelled Potassium Cancelled Chloride Cancelled Carbon Dioxide Cancelled Anion Gap Cancelled BUN Cancelled Creatinine Cancelled Creat Clearance w eGFR Cancelled Random Glucose Cancelled Calcium Cancelled Total Bilirubin Cancelled AST Cancelled ALT Cancelled Alkaline Phosphatase Cancelled Troponin I Cancelled B-Natriuretic Peptide Cancelled Total Protein Cancelled Albumin Cancelled TSH Cancelled 01/05/18 02:05 RBC Cancelled MCV Cancelled MCHC Cancelled RDW Cancelled MPV Cancelled Neutrophils % Cancelled Lymphocytes % Cancelled Monocytes % Cancelled Eosinophils % Cancelled Basophils % Cancelled - Medications Given in the ED: ED Medications Discontinued Medications Generic Name Dose Route Start Last Admin Trade Name Freq PRN Reason Stop Dose Admin Diphenhydramine HCl 25 mg 01/05/18 01:22 01/05/18 01:30 Benadryl Injection - IVPUSH 01/05/18 01:23 25 mg ONCE ONE Administration Morphine Sulfate 2 mg 01/05/18 01:07 01/05/18 01:13 Morphine Injection - IVPUSH 01/05/18 01:08 2 mg ONCE ONE Administration Medical Decision Making - Medical Decision Making 67 year old female with NIDDM, HLD, and HTN presenting with chest tightness, SOB , and nausea shortly before presentation. This is most concerning for atypical ACS given age and risk factors. Patient did admit to the attending that she had some vertiginous symptoms prior to the initiation of these symptoms. Of note patient was very difficult ot draw blood from because of pain with even 25 gauge insertion and shoulder joint pain bilaterally. We administered Morphine which unfortunately resulted in urticaria around IV site. We administered 25 IV benadryl with good resolution of her symptoms. Heart score 5, EKG demonstrating rate 66, HI interval 186, QRS 88, and [id number] with normal axis, no ST -t wave changes. No priors to compare. Microblogged for telel obs admission. Will admit under Ifudu. 01/05/18 05:03 *DC/Admit/Observation/Transfer Diagnosis at time of Disposition: Chest tightness, Shortness of breath, Chest pain, rule out acute myocardial infarction - Discharge Dispostion Condition at time of disposition: Stable Decision to Admit order: Yes - Referrals Referrals: Karissa Ortiz MD [Primary Care Provider] - - Patient Instructions - Post Discharge Activity
[2018-01-05 03:36] LABS: ALBUMIN 3.4 g/dl (3.4-5.0); ALK PHOS 92 U/L (45-117); ANION GAP 8 MMOL/L (8-16); BILIRUBIN,TOTAL 0.2 mg/dL (0.2-1); BLOOD UREA NITROGEN 25 mg/dL (7-18); CALCIUM 8.8 mg/dL (8.5-10.1); CHLORIDE 104 mmol/L (98-107); CO2 26 mmol/L (21-32); CREATININE 1.3 mg/dL (0.55-1.3); GLUCOSE,RANDOM 200 mg/dL (74-106); POTASSIUM 3.8 mmol/L (3.5-5.1); SGOT/AST 24 U/L (15-37); SGPT/ALT 37 U/L (13-61); SODIUM 138 mmol/L (136-145); TOT PROT 7.6 g/dl (6.4-8.2)
[2018-01-05] MEDS ORDERED: SODIUM CHLORIDE 0.9% 500 ML INFUS.BAG IV ONE (04:07)
[2018-01-05 04:32] LABS: URINE APPEARANCE CLOUDY; URINE BILIRUBIN NEGATIVE (<2.0 mg/dL); URINE COLOR YELLOW; URINE GLUCOSE (UA) 3+ (NEGATIVE); URINE KETONE NEGATIVE (NEGATIVE); URINE NITRITE NEGATIVE (NEGATIVE); URINE PROTEIN NEGATIVE (NEGATIVE); URINE UROBILINOGEN NEGATIVE mg/dL (0.2-1.0)
[2018-01-05 04:38] LABS: URINE LEUK ESTERASE 3+ (NEGATIVE)
[2018-01-05 04:41] LABS: EPI CELLS MODERATE /HPF (FEW); URINE BACTERIA RARE /hpf (NONE SEEN); URINE HYALINE CAST 4 /lpf; URINE MUCUS RARE; YEAST RARE
--- NOTE | 2018-01-05 05:27 | PN ---
Teaching Attending Note Name of Resident: Janay Hair ATTENDING PHYSICIAN STATEMENT I saw and evaluated the patient. I reviewed the resident's note and discussed the case with the resident. I agree with the resident's findings and plan as documented. SUBJECTIVE: Patient is a 67 year old woman with PMH of HTN, GERD, Diabetes, and HLD presenting with shortness of breath and central chest tightness radiating to bilateral shoulders for the past 15 minutes. States she was sitting at home on her bed when she had some sudden central chest tightness which she says radiates to her shoulders. Her son found her there and she appeared pale, diaphoretic, nauseous, and generally unwell. She does admit to chronic shoulder pain for the past few weeks that is being worked up by Dr. Ortiz. Denies fevers , chills, vomiting, diarrhea or constipation. OBJECTIVE: Alert Vital Signs Period Temp Pulse Resp BP Sys/Mallory Pulse Ox Last 24 Hr 98.3 F 66 20 120/89 97 HEENT: No Jaundice, eye redness or discharge, PERRLA, EOMI. Normocephalic, atraumatic. External ears are normal and hearing is grossly intact. No nasal discharge. Neck: Supple, nontender. No palpable adenopathy or thyromegaly. No JVD Chest: Good effort. Clear to auscultation and percussion. Heart: Regular. No S3, rub or murmur Abdomen: Not distended, soft, nontender and no HSM. No rebound or guarding. Normoactive bowel sounds. Ext: Peripheral pulses intact. No leg edema. Tender shoulders and limited ROM. Skin: Warm and dry. No petechiae, rash or ecchymosis. Neuro: Alert. Oriented x3. CN 2-12 grossly intact. Sensation grossly intact in all four extremities and DTR are symmetric. Home Medications Medication Instructions Recorded Albuterol Sulfate Inhaler - 1 - 2 inh PO QID 07/21/15 [Ventolin HFA Inhaler -] Aspirin [ASA -] 81 mg PO DAILY 07/21/15 Valsartan/Hydrochlorothiazide 1 each PO DAILY 07/21/15 [Valsartan-Hctz 320-25 mg Tab] Loratadine [Claritin -] 10 mg PO DAILY #30 tablet 12/07/15 Sitagliptin Phos/Metformin HCl 1 each PO DAILY 07/02/16 [Janumet 50-500 mg Tablet] Ascorbate Calcium [Vitamin C] 500 mg PO DAILY 12/10/16 Folic Acid 1 mg PO DAILY 12/10/16 Metoclopramide HCl 5 mg PO DAILY 12/10/16 Omeprazole 40 mg PO DAILY 12/10/16 Pitavastatin Calcium [Livalo] 2 mg PO DAILY 12/10/16 Oseltamivir Phosphate [Tamiflu -] 75 mg PO BID #10 capsule 04/16/17 Metoprolol Tartrate [Lopressor -] 50 mg PO BID 01/05/18 Abnormal Lab Results 01/05/18 01/05/18 01/05/18 02:48 02:51 03:51 WBC 10.3 H MCV 77.5 L MCH 25.5 L MPV 6.7 L BUN 25 H Random Glucose 200 H Urine Glucose (UA) 3+ H Urine Blood 1+ H Ur Leukocyte Esterase 3+ H ASSESSMENT AND PLAN: 1. Chest pain - Pain is atypical. No EKG changes of ACS and troponin is negative. Will admit to telemetry to rule out ACS and get ECHO. No acute pathology on CXR. Get D-dimer. Consult cardiology. Has features of UTI. Will treat with Levofloxacin 500 mg IV qd - allergic to pencillin. Continue workup of shoulder pain with PCP as outpatient. Give tylenol PRN. 2. DM - For now, we will hold the home diabetes drugs and implement sliding scale insulin regimen. Provide comprehensive diabetes care with patient teaching and counseling about the importance of euglycemia, eye care and foot care. 3. DVT prophylaxis - Lovenox 40 mg SQ q 24 hours. 4. Advance directives - Full code
--- NOTE | 2018-01-05 05:43 | HP ---
CHIEF COMPLAINT: Chest tightness, malaise, dizziness x 1 day PCP: HISTORY OF PRESENT ILLNESS: Pt is a 67 yo F with PMH of HTN, GERD, Diabetes, and HLD presenting with central chest tightness radiating to bilateral shoulders for the past 15 minutes and generalized malaise and dizziness. Pt was sitting at home on her bed when she had some sudden central chest tightness which she said radiated to her shoulders b/l. Pt has had bilateral chronic shoulder pain for the past month that is being worked up by Dr. Ortiz. There was associated dizziness/vertigo which was not positional and bilateral ringing sensation in the ear. Pt felt malaise and EMS was activated by her son/ grandson. There was associated shortness of breath,and generalized body aches. Pt denied burning on miturition. Last bowel movement was 2 days ago of non bloody well formed stool. Pt notes that she has heart murmurs but has never had any cardiac procedure in the past. Her last home glucose monitoring was a day prior to presentation which she described as ok, similar to the glucose check on route the ED. In the ED, pt received morphine and developed erythema/hives and had to receive benadryl. She is constantly chest pain free and no longer SOB. Pt denies similar symptoms in the past ER course was notable for: (1)morphine/benadryl (2)UA-glu 3+, LW 3+, Urine RBCs--8, WBCs-84, Epithel cells-mod, rare bacteria, cast cells-4 (3)wbc-10.3, H&H-11.1/33.7, BUN/Cr-25/1.3, Recent Travel: PAST MEDICAL HISTORY: HTN, GERD, Diabetes, and HLD PAST SURGICAL HISTORY: Social History: Smoking: Alcohol: Drugs: Family History: Allergies Penicillins Allergy (Intermediate, Verified 01/05/18 00:18) Rash swelling morphine Allergy (Mild, Uncoded 01/05/18 04:20) Rash HOME MEDICATIONS: Home Medications Medication Instructions Recorded Albuterol Sulfate Inhaler - 1 - 2 inh PO QID 07/21/15 [Ventolin HFA Inhaler -] Aspirin [ASA -] 81 mg PO DAILY 07/21/15 Valsartan/Hydrochlorothiazide 1 each PO DAILY 07/21/15 [Valsartan-Hctz 320-25 mg Tab] Loratadine [Claritin -] 10 mg PO DAILY #30 tablet 12/07/15 Sitagliptin Phos/Metformin HCl 1 each PO DAILY 07/02/16 [Janumet 50-500 mg Tablet] Ascorbate Calcium [Vitamin C] 500 mg PO DAILY 12/10/16 Folic Acid 1 mg PO DAILY 12/10/16 Metoclopramide HCl 5 mg PO DAILY 12/10/16 Omeprazole 40 mg PO DAILY 12/10/16 Pitavastatin Calcium [Livalo] 2 mg PO DAILY 12/10/16 Oseltamivir Phosphate [Tamiflu -] 75 mg PO BID #10 capsule 04/16/17 Metoprolol Tartrate [Lopressor -] 50 mg PO BID 01/05/18 REVIEW OF SYSTEMS CONSTITUTIONAL: Absent: fever, chills, diaphoresis, generalized weakness, malaise, loss of appetite, weight change HEENT: Absent: rhinorrhea, nasal congestion, throat pain, throat swelling, difficulty swallowing, mouth swelling, ear pain, eye pain, visual changes CARDIOVASCULAR: Absent: chest pain, syncope, palpitations, irregular heart rate, lightheadedness , peripheral edema RESPIRATORY: Absent: cough, shortness of breath, dyspnea with exertion, orthopnea, wheezing, stridor, hemoptysis GASTROINTESTINAL: Absent: abdominal pain, abdominal distension, nausea, vomiting, diarrhea, constipation, melena, hematochezia GENITOURINARY: Absent: dysuria, frequency, urgency, hesitancy, hematuria, flank pain, genital pain MUSCULOSKELETAL: Absent: myalgia, arthralgia, joint swelling, back pain, neck pain SKIN: Absent: rash, itching, pallor HEMATOLOGIC/IMMUNOLOGIC: Absent: easy bleeding, easy bruising, lymphadenopathy, frequent infections ENDOCRINE: Absent: unexplained weight gain, unexplained weight loss, heat intolerance, cold intolerance NEUROLOGIC: Absent: headache, focal weakness or paresthesias, dizziness, unsteady gait, seizure, mental status changes, bladder or bowel incontinence PSYCHIATRIC: Absent: anxiety, depression, suicidal or homicidal ideation, hallucinations. PHYSICAL EXAMINATION Vital Signs - 24 hr 01/05/18 00:18 Temperature 98.3 F Pulse Rate 66 Respiratory 20 Rate Blood Pressure 120/89 O2 Sat by Pulse 97 Oximetry (%) GENERAL: Awake, alert, and fully oriented, in no acute distress. HEAD: Normal with no signs of trauma. EYES: Pupils equal, round and reactive to light, extraocular movements intact, sclera anicteric, conjunctiva clear. No lid lag. EARS, NOSE, THROAT: Ears normal, nares patent, oropharynx clear without exudates. Moist mucous membranes. NECK: Normal range of motion, supple without lymphadenopathy, JVD, or masses. LUNGS: Breath sounds equal, clear to auscultation bilaterally. HEART: Regular rate and rhythm, normal S1 and S2 without murmur, rub or gallop. Reproducible b/l shoulder pain and anterior chest wall ABDOMEN: Obese, Soft, nontender, not distended, normoactive bowel sounds, MUSCULOSKELETAL: Normal range of motion at all joints. Generalized tenderness. No CVA tenderness. LOWER EXTREMITIES: 2+ pulses, warm, well-perfused. No calf tenderness. No peripheral edema. NEUROLOGICAL: Cranial nerves II-XII intact. Normal speech. Gait not observed PSYCHIATRIC: Cooperative. Good eye contact. Appropriate mood and affect. CBC, BMP 01/05/18 07:00 01/05/18 07:00 Laboratory Results - last 24 hr 01/05/18 01/05/18 01/05/18 02:05 02:05 02:05 WBC Cancelled Corrected WBC (auto) Cancelled RBC Cancelled Hgb Cancelled Hct Cancelled MCV Cancelled MCH Cancelled MCHC Cancelled RDW Cancelled Plt Count Cancelled MPV Cancelled Absolute Neuts (auto) Cancelled Neutrophils % Cancelled Lymphocytes % Cancelled Monocytes % Cancelled Eosinophils % Cancelled Basophils % Cancelled Nucleated RBC % Cancelled Platelet Estimate Cancelled Platelet Comment Cancelled PT with INR Cancelled INR Cancelled Sodium Cancelled Potassium Cancelled Chloride Cancelled Carbon Dioxide Cancelled Anion Gap Cancelled BUN Cancelled Creatinine Cancelled Creat Clearance w eGFR Cancelled Random Glucose Cancelled Calcium Cancelled Total Bilirubin Cancelled AST Cancelled ALT Cancelled Alkaline Phosphatase Cancelled Troponin I Cancelled B-Natriuretic Peptide Cancelled Total Protein Cancelled Albumin Cancelled TSH Cancelled Urine Color Urine Appearance Urine pH Ur Specific [place] Urine Protein Urine Glucose (UA) Urine Ketones Urine Blood Urine Nitrite Urine Bilirubin Urine Urobilinogen Ur Leukocyte Esterase Urine WBC (Auto) Urine RBC (Auto) Ur Epithelial Cells Urine Bacteria Hyaline Casts Urine Mucus Urine Yeast Blood Type Antibody Screen 01/05/18 01/05/18 01/05/18 02:05 02:48 02:51 WBC 10.3 H Corrected WBC (auto) RBC 4.34 Hgb 11.1 Hct 33.7 MCV 77.5 L MCH 25.5 L MCHC 32.9 RDW 15.4 Plt Count 346 D MPV 6.7 L Absolute Neuts (auto) 7.0 Neutrophils % 68.3 Lymphocytes % 20.1 Monocytes % 9.1 Eosinophils % 1.3 D Basophils % 1.2 Nucleated RBC % 0 Platelet Estimate Platelet Comment PT with INR INR Sodium 138 Potassium 3.8 Chloride 104 Carbon Dioxide 26 Anion Gap 8 BUN 25 H Creatinine 1.3 Creat Clearance w eGFR 40.98 Random Glucose 200 H Calcium 8.8 Total Bilirubin 0.2 AST 24 ALT 37 Alkaline Phosphatase 92 Troponin I < 0.02 B-Natriuretic Peptide Total Protein 7.6 Albumin 3.4 TSH 2.14 Urine Color Urine Appearance Urine pH Ur Specific [place] Urine Protein Urine Glucose (UA) Urine Ketones Urine Blood Urine Nitrite Urine Bilirubin Urine Urobilinogen Ur Leukocyte Esterase Urine WBC (Auto) Urine RBC (Auto) Ur Epithelial Cells Urine Bacteria Hyaline Casts Urine Mucus Urine Yeast Blood Type Cancelled Antibody Screen Cancelled 01/05/18 03:51 WBC Corrected WBC (auto) RBC Hgb Hct MCV MCH MCHC RDW Plt Count MPV Absolute Neuts (auto) Neutrophils % Lymphocytes % Monocytes % Eosinophils % Basophils % Nucleated RBC % Platelet Estimate Platelet Comment PT with INR INR Sodium Potassium Chloride Carbon Dioxide Anion Gap BUN Creatinine Creat Clearance w eGFR Random Glucose Calcium Total Bilirubin AST ALT Alkaline Phosphatase Troponin I B-Natriuretic Peptide Total Protein Albumin TSH Urine Color Yellow Urine Appearance Cloudy Urine pH 5.0 Ur Specific [place] 1.022 Urine Protein Negative Urine Glucose (UA) 3+ H Urine Ketones Negative Urine Blood 1+ H Urine Nitrite Negative Urine Bilirubin Negative Urine Urobilinogen Negative Ur Leukocyte Esterase 3+ H Urine WBC (Auto) 84 Urine RBC (Auto) 8 Ur Epithelial Cells Moderate Urine Bacteria Rare Hyaline Casts 4 Urine Mucus Rare Urine Yeast Rare Blood Type Antibody Screen ASSESSMENT/PLAN: Pt is a 67 yo F with PMH of HTN, GERD, Diabetes, and HLD presenting with central chest tightness radiating to bilateral shoulders for the past 15 minutes and generalized malaise and dizziness found to have UTI Atypical Chest pain Not related to exertion Resolved spontaneously, appears reproducible Could be in setting of b/l shoulder pain tele obs trend trops EKG-NSR 66bpm, NSTE/NSTD, QTC-406 On home ASA Acute complicated UTI Generalized malaise, mild leucocytosis, positive UA Pt allergic to penicillins, will hold off giving ceftriaxone Levoflox 500mg Q24hrs considering renal function Iv tylenol for pain Acute allergic reaction To morphine, resolved with iv benadryl No SOB or acute symptoms HTN, Cont home [id number] GERD, Cont home Omeprazole Diabetes, ISS ACHS BGM ACH HgbA1c HLD Cont statins FEN NS @50/hr Monitor lytes Diabetic diet Dispo Tele obs Visit type - Emergency Visit Emergency Visit: Yes ED Registration Date: 01/05/18 Care time: The patient presented to the Emergency Department on the above date and was hospitalized for further evaluation of their emergent condition. - New Patient This patient is new to me today: Yes Date on this admission: 01/05/18 - Critical Care Critical Care patient: No Hospitalist Screening - Colonoscopy Questionnaire Colonoscopy Questionnaire: Colonoscopy Questionnaire - Patient: 50 - 75 years old and never had a screening colonoscopy: Yes History of colon or rectal polyps, or CA: Unknown History of IBD, Crohn's disease or UC: Unknown History of abdominal radiation therapy as a child: Unknown - Relative: 1 with colon or rectal CA, or polyps at age 60 or younger: Unknown Colon or rectal CA diagnosed at age 45 or younger: Unknown Multiple relatives with colon or rectal CA: Unknown - Outcome: Screening Result: Positive Screen
[2018-01-05] MEDS ORDERED: SODIUM CHLORIDE 1,000 ML IV SCH (07:00)
[2018-01-05] MEDS ORDERED: levoFLOXacin 250 MG IVPB 500 MG/100 ML MG IVPB ONE (07:01)
[2018-01-05] MEDS ORDERED: HEMOQUE CONTROL SOLUTION ONE (07:08)
[2018-01-05] MEDS: INSULIN SLIDING SCALE (NOVOLOG) 1 VIAL SQ SCH ×2 (07:33→11:41)
[2018-01-05 08:22] LABS: BASO % 0.8 % (0-2.0); EOS % 1.5 % (0-4.5); HEMATOCRIT 34.1 % (32.4-45.2); HEMOGLOBIN 11.1 GM/dL (10.7-15.3); LYMPH % 31.7 % (8-40); MCH 25.3 pg (25.7-33.7); MCHC 32.5 g/dl (32.0-36.0); MEAN PLT VOLUME 6.4 fl (7.5-11.1); MONO % 8.7 % (3.8-10.2); NEUT % 57.3 % (42.8-82.8); PLATELET COUNT 326 K/MM3 (134-434); RBC 4.38 M/mm3 (3.60-5.2); RDW 15.4 % (11.6-15.6); WHITE BLOOD COUNT 9.2 K/mm3 (4.0-10.0)
[2018-01-05 08:37] LABS: INR 1.12 (0.83-1.09); PROTHROMBIN TIME (PATIENT) 12.7 SEC (9.7-13.0)
[2018-01-05 08:39] LABS: ACTIVATED PTT 25.5 SECONDS (25.2-36.5)
[2018-01-05 09:13] LABS: ALK PHOS 81 U/L (45-117); ANION GAP 10 MMOL/L (8-16); BILIRUBIN,TOTAL 0.3 mg/dL (0.2-1); BLOOD UREA NITROGEN 24 mg/dL (7-18); CALCIUM 8.7 mg/dL (8.5-10.1); CHLORIDE 107 mmol/L (98-107); CO2 26 mmol/L (21-32); GLUCOSE,RANDOM 132 mg/dL (74-106); MAGNESIUM 1.6 mg/dL (1.8-2.4); PHOSPHOROUS 3.3 mg/dL (2.5-4.9); SGOT/AST 17 U/L (15-37); SGPT/ALT 33 U/L (13-61); SODIUM 143 mmol/L (136-145); TOT PROT 6.8 g/dl (6.4-8.2)
--- NOTE | 2018-01-05 14:43 | DS ---
Physical Examination Vital Signs: Vital Signs Temperature 97.8 F 01/05/18 11:53 Pulse Rate 60 01/05/18 11:53 Respiratory Rate 14 01/05/18 11:53 Blood Pressure 134/73 01/05/18 11:53 O2 Sat by Pulse Oximetry (%) 100 01/05/18 11:53 Findings/Remarks: c/o chronic BL shoulder pain, had BL shoulder xrays done, with Dr Ortiz but doesn't know the result. Takes only tylenol for pain. Feels anxious Denies SOB, N/V/lightheadedness/chest pain trop x 3 negative EKG-NSR with LVH-unremarkable dx: inflammatory arthritis? Constitutional: Yes: Well Nourished, No Distress, Calm Cardiovascular: Yes: Regular Rate and Rhythm, Murmur (Grade II/) Respiratory: Yes: Regular Gastrointestinal: Yes: Normal Bowel Sounds, Soft Musculoskeletal: Yes: WNL Extremities: Yes: WNL Edema: No Peripheral Pulses WNL: Yes Neurological: Yes: Alert, Oriented Psychiatric: Yes: Alert, Oriented Labs: CBC, BMP 01/05/18 07:00 01/05/18 07:00 Discharge Summary Reason For Visit: CHEST PAIN,RULE OUT ACUTE MYOCARDIAL INFARCTION Current Active Problems Chest pain, rule out acute myocardial infarction (Acute) Chest tightness (Acute) Shortness of breath (Acute) Condition: Stable - Instructions Diet, Activity, Other Instructions: Acetaminophen (Tylenol) 500 mg every 4 hours as needed for pain 1-3 Meloxicam 7.5 mg, 1 tab daily as needed for pain 4-6 Tramadol 50 mg 3 x day as needed for pain 7-10 Continue your home medications as prescribed by your doctor Follow up with orthopedist Dr Ho Rodrigues Follow up with Cardiology Dr Magdiel Samaniego Referrals: Karissa Ortiz MD [Primary Care Provider] - Ho Rodrigues MD [Staff Physician] - Magdiel Samaniego MD [Staff Physician] - Disposition: HOME - Home Medications Comprehensive Discharge Medication List: Ambulatory Orders Albuterol Sulfate Inhaler - [Ventolin HFA Inhaler -] 1 - 2 inh PO QID 07/21/15 Aspirin [ASA -] 81 mg PO DAILY 07/21/15 Valsartan/Hydrochlorothiazide [Valsartan-Hctz 320-25 mg Tab] 1 each PO DAILY 10/28 Loratadine [Claritin -] 10 mg PO DAILY #30 tablet 12/07/15 Sitagliptin Phos/Metformin HCl [Janumet 50-500 mg Tablet] 1 each PO DAILY Ascorbate Calcium [Vitamin C] 500 mg PO DAILY 12/10/16 Folic Acid 1 mg PO DAILY 12/10/16 Metoclopramide HCl 5 mg PO DAILY 12/10/16 Omeprazole 40 mg PO DAILY 12/10/16 Pitavastatin Calcium [Livalo] 2 mg PO DAILY 12/10/16 Metoprolol Tartrate [Lopressor -] 50 mg PO BID 01/05/18
[2018-01-05 16:41] VITALS: BP 152/78; PULSE 66; TEMP 97.9
--- NOTE | 2018-01-05 17:05 | EKG ---
Test Reason : Blood Pressure : / mmHG Vent. Rate : 066 BPM Atrial Rate : 066 BPM P-R Int : 186 ms QRS Dur : 088 ms QT Int : 388 ms P-R-T Axes : -04 -19 032 degrees QTc Int : 406 ms NORMAL SINUS RHYTHM VOLTAGE CRITERIA FOR LEFT VENTRICULAR HYPERTROPHY ABNORMAL ECG WHEN COMPARED WITH ECG OF 16-APR-2017 06:37, NO SIGNIFICANT CHANGE WAS FOUND Confirmed by MD Brooks, Luis Carlos ([id number]) on 01/05/2018 5:04:44 PM Referred By: Confirmed By:Luis Carlos Guy MD
== END 2018-01-05 16:44 | disposition home or self-care (01) | DRG 554 ==
LOC: JER 00:11 → JERBED 04:25 → OBSVTOIN 06:21
PROVIDERS: ADMIT Internal Medicine; ATTEND Family Medicine
DX: M19.90 Unspecified osteoarthritis, unspecified site (principal); N39.0 Urinary tract infection, site not specified; R07.89 Other chest pain; I10 Essential (primary) hypertension; E11.9 Type 2 diabetes mellitus without complications; E78.5 Hyperlipidemia, unspecified; K21.9 Gastro-esophageal reflux disease without esophagitis; Z88.0 Allergy status to penicillin; L50.0 Allergic urticaria; M25.512 Pain in left shoulder; M25.511 Pain in right shoulder; Z79.84 Long term (current) use of oral hypoglycemic drugs
CPT/HCPCS: 36415; 70450-TC; 71045-TC-FY; 73030-TC-LT-FY; 73030-TC-RT-FY; 80053; 81003; 81015; 82550; 82962; 83036; 83735; 84100; 84443; 84484; 85025; 85610; 85730; 87077; 87086; 93005; 93010; 99285-25; G0378; J7030

== ENCOUNTER 2018-03-16 14:25 | Inpatient (IN) | payer OTHER ==
--- NOTE | 2018-03-16 14:33 | PDOC ---
History of Present Illness - General Chief Complaint: Shortness of Breath Stated Complaint: TROUBLE BREATHING,ASTHMA Time Seen by Provider: 03/16/18 14:32 - History of Present Illness Initial Comments: 03/16/18 15:03 The patient is a 67 year old male with a history of Asthma, HTN, HLD, DM who presents for evaluation of SOB. The patient reports that she presented to [facility] 5 days ago for an asthma exacerbation and was treated with nebulizers and prednisone. She states that she has been on prednisone since that time and reports minimal improvement despite steroids and home nebulizers prompting her presentation to the ED for further evaluation. She reports a non- productive cough, but otherwise denies fevers, chills, chest pain, nausea, vomiting, abdominal pain, or changes with urination or bowel movements. Past History - Past Medical History Allergies/Adverse Reactions: Allergies Allergy/AdvReac Type Severity Reaction Status Date / Time Penicillins Allergy Intermediate Rash Verified 03/16/18 14:30 morphine Allergy Mild Rash Uncoded 03/16/18 14:30 Home Medications: Ambulatory Orders Albuterol Sulfate Inhaler - [Ventolin HFA Inhaler -] 1 - 2 inh PO QID 07/21/15 Aspirin [ASA -] 81 mg PO DAILY 07/21/15 Loratadine [Claritin -] 10 mg PO DAILY #30 tablet 12/07/15 Sitagliptin Phos/Metformin HCl [Janumet 50-500 mg Tablet] 1 each PO DAILY Folic Acid 1 mg PO DAILY 12/10/16 Metoclopramide HCl 5 mg PO PRN PRN 12/10/16 Omeprazole 40 mg PO DAILY 12/10/16 Metoprolol Tartrate [Lopressor -] 50 mg PO BID 01/05/18 Dapagliflozin Propanediol [Farxiga] 10 mg PO DAILY 03/16/18 Gabapentin [Neurontin] 300 mg PO HS 03/16/18 Icosapent Ethyl [Vascepa] 1 gm PO BID 03/16/18 Insulin Glargine,Hum.rec.anlog [Toucarlos Solostar] 300 unit SQ AC 03/16/18 Losartan/Hydrochlorothiazide [Losartan-Hctz 100-25 mg Tab] 1 each PO DAILY 03/16 Meclizine HCl 25 mg PO HS PRN 03/16/18 Meloxicam 5 mg PO TID 03/16/18 Mirtazapine 30 mg PO HS 03/16/18 Rosuvastatin Calcium [Crestor] 10 mg PO DAILY 03/16/18 Anemia: No Asthma: Yes Cancer: No Cardiac Disorders: Yes (palpitations) CVA: No COPD: No CHF: No Dementia: No Diabetes: Yes GI Disorders: No Disorders: Yes (BLADDER PROBLEMS) HTN: Yes Hypercholesterolemia: Yes Liver Disease: Yes (INFLAMMED LIVER) Seizures: No Thyroid Disease: No - Suicide/Smoking/Psychosocial Hx Smoking Status: No Smoking History: Never smoked Have you smoked in the past 12 months: No Number of Cigarettes Smoked Daily: 0 Hx Alcohol Use: No Drug/Substance Use Hx: No Substance Use Type: Alcohol Hx Substance Use Treatment: No Review of Systems - Review of Systems Comments:: 03/16/18 15:12 Constitutional: No fevers, chills, fatigue, malaise HEENT: No Rhinorrhea, nasal congestion, visual changes Cardiovascular: No chest pain, syncope, palpitations, lightheadedness Respiratory: SOB, Cough. No Hemoptysis, Gastrointestinal: No Abdominal pain, Nausea, Vomiting, Constipation, Diarrhea, Melena Genitourinary: No Dysuria, Frequency, Urgency, Hesitancy, Hematuria, Flank pain Musculoskeletal: No Myalgia, arthralgia Skin: No rashes, itching, bruising, pallor Neurologic: No Headache, Dizziness, Numbness, Weakness, or Tingling Psychiatric: No Hallucinations. No SI or HI *Physical Exam - Vital Signs Last Vital Signs Temp Pulse Resp BP Pulse Ox 97.5 F L 88 18 177/93 H 95 03/16/18 14:27 03/16/18 14:27 03/16/18 14:27 03/16/18 14:27 03/16/18 14:27 - Physical Exam Comments: 03/16/18 15:13 General Appearance: Nourished. No Apparent Distress HEENT: No Pharyngeal Erythema, Tonsillar Exudate, Tonsillar Erythema Neck: No Cervical Lymphadenopathy Respiratory/Chest: Diffuse inspiratory and expiratory wheezing with poor air movement on exam. No Crackles, Rales, Rhonchi, Cardiovascular: Regular Rhythm, Regular Rate. No Murmur, Gallops, Rubs Gastrointestinal/Abdominal: Normal Bowel Sounds, Soft. No Guarding, Rebound, Tenderness Musculoskeletal: No CVA Tenderness Extremity: Normal Capillary Refill Integumentary: Normal Color, Dry, Warm Neurologic: Fully Oriented, Alert, Normal Mood/Affect, Normal Response, Moderate Sedation - Procedure Monitoring Vital Signs: Procedure Monitoring Vital Signs Temperature 97.5 F L 03/16/18 14:27 Pulse Rate 88 03/16/18 14:27 Respiratory Rate 18 03/16/18 14:27 Blood Pressure 177/93 H 03/16/18 14:27 O2 Sat by Pulse Oximetry (%) 95 03/16/18 14:27 ED Treatment Course - LABORATORY CBC & Chemistry Diagram: 03/16/18 15:30 03/16/18 15:30 Medical Decision Making - Medical Decision Making 03/16/18 15:13 The patient is a 67 year old male with a history of Asthma, HTN, HLD, DM who presents for evaluation of SOB. Differential includes but is not limited to: Asthma exacerbation, ACS, Pneumonia, Infectious, Metabolic derangement. Given the patient's history and physical exam, we will obtain a cbc, cmp, troponin, ekg, chest plain film to evaluate further. We will treat with duonebs and solumedrol and continue to monitor and reassess while here in the ED. 03/16/18 18:25 CBC, cmp, troponin are unremarkable. Chest plain film is unremarkable. The patient continues to have wheezing on exam with poor air movement. We will treat with mag and the patient will require admission for further management given that she has failed outpatient therapy. We discussed the case with the admitting team who accepted the patient for admission. *DC/Admit/Observation/Transfer Diagnosis at time of Disposition: Asthma exacerbation Qualifiers: Asthma severity: unspecified severity Asthma persistence: unspecified Qualified Code(s): J45.901 - Unspecified asthma with (acute) exacerbation - Discharge Dispostion Condition at time of disposition: Stable Decision to Admit order: Yes - Referrals Referrals: Gisela Woodson MD [Primary Care Provider] - - Patient Instructions - Post Discharge Activity
[2018-03-16] MEDS ORDERED: methylPREDNISolone NA SUCC 125 MG/2 ML VIAL IVPUSH ONE (14:41)
[2018-03-16] MEDS ORDERED: ALBUTEROL SO4 2.5/IPRATROPIUM 0.5 INH SOL 3 ML VIAL.NEB. NEB ONE ×2 (14:55→20:01)
[2018-03-16] MEDS: ALBUTEROL SO4 2.5/IPRATROPIUM 0.5 INH SOL 3 ML VIAL.NEB. NEB ONE ×2 (15:00→15:17)
[2018-03-16] MEDS ORDERED: methylPREDNISolone NA SUCC 125 MG/2 ML VIAL ONE (15:15)
[2018-03-16 15:41] LABS: BASO % 0.3 % (0-2.0); HEMATOCRIT 35.2 % (32.4-45.2); HEMOGLOBIN 11.9 GM/dL (10.7-15.3); LYMPH % 24.7 % (8-40); MCH 25.9 pg (25.7-33.7); MCHC 33.8 g/dl (32.0-36.0); MEAN CELL VOLUME 76.5 fl (80-96); MEAN PLT VOLUME 6.7 fl (7.5-11.1); MONO % 5.6 % (3.8-10.2); NEUT % 69.4 % (42.8-82.8); PLATELET COUNT 363 K/MM3 (134-434); RBC 4.61 M/mm3 (3.60-5.2); RDW 15.7 % (11.6-15.6); WHITE BLOOD COUNT 6.9 K/mm3 (4.0-10.0)
--- NOTE | 2018-03-16 15:43 | PDOC ---
Attending Attestation - HPI HPI: 03/16/18 15:52 The patient is a 67 year old female with a significant past medical history of HTN, GERD, Diabetes, and HLD presenting with shortness of breath and wheezing today. The patient denies chest pain, headache and dizziness. The patient denies fever , chills, nausea, vomit, diarrhea and constipation. The patient denies dysuria, frequency, urgency and hematuria. Allergies: NKDA PCP - Dr. Karissa Ortiz - Medical Decision Making 03/16/18 15:53 Documentation prepared by Louise Arceo, acting as back office medical assistant for Linsey Meyer MD <Louise Arceo - Last Filed: 03/16/18 15:52> - ED Attending Attestation I have performed the following: I have examined & evaluated the patient, The case was reviewed & discussed with the resident, I agree w/resident's findings & plan, Exceptions are as noted - Physicial Exam PE: 03/16/18 17:24 awake alert tachypnea, diffuse exp wheezing bilaterally heart rrr no mrg abd soft nt nd. ext wwp. no edema. no calf tenderness. nuero alert oriented x 3. skin warm and dry. - Medical Decision Making 03/16/18 17:25 differential : asthma exacerbation, pna chf, plan nebs steroids. pt rebounding from outpt mangement will likley require adimssion for asthma exacerbation. last admission one year ago for 5 days inpatient. <Linsey Meyer - Last Filed: 03/16/18 17:26>
[2018-03-16] MEDS ORDERED: MAGNESIUM SULF 50% (8.12 MEQ/2 ML-1 GM VIAL) IVPB ONE (16:02)
[2018-03-16] MEDS ORDERED: MAGNESIUM 1GM/D5W - 1 GM/100 ML IVPB IVPB ONE (16:18)
[2018-03-16 16:24] LABS: ALBUMIN 3.7 g/dl (3.4-5.0); ALK PHOS 83 U/L (45-117); ANION GAP 12 MMOL/L (8-16); BILIRUBIN,TOTAL 0.2 mg/dL (0.2-1); BLOOD UREA NITROGEN 13 mg/dL (7-18); CALCIUM 8.9 mg/dL (8.5-10.1); CHLORIDE 103 mmol/L (98-107); CO2 25 mmol/L (21-32); GLUCOSE,RANDOM 190 mg/dL (74-106); POTASSIUM 3.6 mmol/L (3.5-5.1); SGOT/AST 28 U/L (15-37); SGPT/ALT 52 U/L (13-61); SODIUM 140 mmol/L (136-145); TOT PROT 8.1 g/dl (6.4-8.2)
--- NOTE | 2018-03-16 17:28 | HP ---
CHIEF COMPLAINT: Shortness of breath PCP: Dr. Woodson HISTORY OF PRESENT ILLNESS: 67 year old female with a PMH significant for HTN, HLD, non-obstructive CAD, asthma, NIDDM, and GERD. Patient presents today to the ED with a complaint of SOB. The patient reports that she presented to [facility] 5 days ago for an asthma exacerbation and was treated with nebulizers and prednisone. She has been on prednisone since that time, and has been using her home nebulizer, with minimal improvement. She reports a non-productive cough, but otherwise denies fevers, chills, chest pain, nausea, vomiting, abdominal pain, or changes with urination or bowel movements. ER course was notable for: (1) Solumedrol 125mg x 1, Mg 1g x 1, duonebs Recent Travel: No PAST MEDICAL HISTORY: Hypertension Hyperlipidemia Non-obstructive CAD PSVT Asthma NIDDM GERD Fatty liver disease PAST SURGICAL HISTORY: Social History: Smoking: never Alcohol: no Drugs: no Family History: Allergies Penicillins Allergy (Intermediate, Verified 03/16/18 14:30) Rash swelling morphine Allergy (Mild, Uncoded 03/16/18 14:30) Rash HOME MEDICATIONS: Home Medications Medication Instructions Recorded Albuterol Sulfate Inhaler - 1 - 2 inh PO QID 07/21/15 [Ventolin HFA Inhaler -] Aspirin [ASA -] 81 mg PO DAILY 07/21/15 Loratadine [Claritin -] 10 mg PO DAILY #30 tablet 12/07/15 Sitagliptin Phos/Metformin HCl 1 each PO DAILY 07/02/16 [Janumet 50-500 mg Tablet] Folic Acid 1 mg PO DAILY 12/10/16 Metoclopramide HCl 5 mg PO PRN PRN 12/10/16 Omeprazole 40 mg PO DAILY 12/10/16 Metoprolol Tartrate [Lopressor -] 50 mg PO BID 01/05/18 Dapagliflozin Propanediol [Farxiga] 10 mg PO DAILY 03/16/18 Gabapentin [Neurontin] 300 mg PO HS 03/16/18 Icosapent Ethyl [Vascepa] 1 gm PO BID 03/16/18 Insulin Glargine,Hum.rec.anlog 300 unit SQ AC 03/16/18 [Toucarlos Grahamostar] Losartan/Hydrochlorothiazide 1 each PO DAILY 03/16/18 [Losartan-Hctz 100-25 mg Tab] Meclizine HCl 25 mg PO HS PRN 03/16/18 Meloxicam 5 mg PO TID 03/16/18 Mirtazapine 30 mg PO HS 03/16/18 Rosuvastatin Calcium [Crestor] 10 mg PO DAILY 03/16/18 REVIEW OF SYSTEMS CONSTITUTIONAL: Absent: fever, chills, diaphoresis, generalized weakness, malaise, loss of appetite, weight change HEENT: Absent: rhinorrhea, nasal congestion, throat pain, throat swelling, difficulty swallowing, mouth swelling, ear pain, eye pain, visual changes CARDIOVASCULAR: Absent: chest pain, syncope, palpitations, irregular heart rate, lightheadedness , peripheral edema RESPIRATORY: +cough, SOB, wheezing Absent: dyspnea with exertion, orthopnea, stridor, hemoptysis GASTROINTESTINAL: Absent: abdominal pain, abdominal distension, nausea, vomiting, diarrhea, constipation, melena, hematochezia GENITOURINARY: Absent: dysuria, frequency, urgency, hesitancy, hematuria, flank pain, genital pain MUSCULOSKELETAL: Absent: myalgia, arthralgia, joint swelling, back pain, neck pain SKIN: Absent: rash, itching, pallor HEMATOLOGIC/IMMUNOLOGIC: Absent: easy bleeding, easy bruising, lymphadenopathy, frequent infections ENDOCRINE: Absent: unexplained weight gain, unexplained weight loss, heat intolerance, cold intolerance NEUROLOGIC: Absent: headache, focal weakness or paresthesias, dizziness, unsteady gait, seizure, mental status changes, bladder or bowel incontinence PSYCHIATRIC: Absent: anxiety, depression, suicidal or homicidal ideation, hallucinations. PHYSICAL EXAMINATION Vital Signs - 24 hr 03/16/18 03/16/18 03/16/18 14:27 15:56 16:43 Temperature 97.5 F L Pulse Rate 88 Pulse Rate [ 102 H Radial] Respiratory 18 24 H Rate Blood Pressure 177/93 H Blood Pressure 164/77 [Left Arm] O2 Sat by Pulse 95 97 94 L Oximetry (%) GENERAL: Awake, alert, and fully oriented, in no acute distress. HEAD: Normal with no signs of trauma. EYES: Pupils equal, round and reactive to light, extraocular movements intact, sclera anicteric, conjunctiva clear. No lid lag. EARS, NOSE, THROAT: Ears normal, nares patent, oropharynx clear without exudates. Moist mucous membranes. NECK: Normal range of motion, supple without lymphadenopathy, JVD, or masses. LUNGS: Diffuse wheezing HEART: Regular rate and rhythm, S1 and S2 ABDOMEN: Soft, nontender, not distended UPPER EXTREMITIES: 2+ pulses, warm, well-perfused. No cyanosis. No clubbing. No peripheral edema. LOWER EXTREMITIES: 2+ pulses, warm, well-perfused. No calf tenderness. No peripheral edema. NEUROLOGICAL: Cranial nerves II-XII intact. Normal speech. SKIN: Warm, dry, normal turgor Laboratory Results - last 24 hr 03/16/18 03/16/18 15:30 15:30 WBC 6.9 RBC 4.61 Hgb 11.9 Hct 35.2 MCV 76.5 L MCH 25.9 MCHC 33.8 RDW 15.7 H Plt Count 363 MPV 6.7 L Absolute Neuts (auto) 4.8 Neutrophils % 69.4 Lymphocytes % 24.7 Monocytes % 5.6 Eosinophils % 0.0 D Basophils % 0.3 Nucleated RBC % 0 Sodium 140 Potassium 3.6 Chloride 103 Carbon Dioxide 25 Anion Gap 12 BUN 13 Creatinine 1.0 Creat Clearance w eGFR 55.47 Random Glucose 190 H Calcium 8.9 Total Bilirubin 0.2 AST 28 ALT 52 Alkaline Phosphatase 83 Creatine Kinase 211 H Creatine Kinase Index 0.8 CK-MB (CK-2) 1.7 Troponin I < 0.02 Total Protein 8.1 Albumin 3.7 ASSESSMENT/PLAN 67 year old female with a PMH significant for HTN, HLD, non-obstructive CAD, asthma, NIDDM, and GERD. Admitted for asthma exacerbation. Asthma exacerbation --Solumedrol 40mg q8h --duonebs q6h scheduled --nasal canula PRN to keep SpO2>94% --afebrile, no leukocytosis, observe off antibiotics --pre post in am to assess oxygenation needs Hypertension --continue HCTZ/Losartan, metoprolol Hyperlipidemia --continue rosuvastatin Non-obstructive CAD --continue ASA, metoprolol NIDDM --Novolog sliding scale coverage GERD --protonix FEN Fluids: PO intake adequate Electrolytes: replete as indicated Nutrition: diabetic diet DVT prophylaxis: subq lovenox Dispo: continues to require inpatient care. Full code. Visit type - Emergency Visit Emergency Visit: Yes ED Registration Date: 03/16/18 Care time: The patient presented to the Emergency Department on the above date and was hospitalized for further evaluation of their emergent condition. - New Patient This patient is new to me today: Yes Date on this admission: 03/16/18 - Critical Care Critical Care patient: No
[2018-03-16] MEDS ORDERED: ALBUTEROL SO4 2.5/IPRATROPIUM 0.5 INH SOL 3 ML VIAL.NEB. NEB SCH (20:00)
[2018-03-16] MEDS ORDERED: INSULIN (NOVOLOG) ASPART 100 UNITS/ML 10ML VIAL ONE (22:49)
[2018-03-16] MEDS: INSULIN SLIDING SCALE (NOVOLOG) 1 VIAL SQ SCH (22:52)
[2018-03-16] MEDS: MIRTAZAPINE 30 MG TABLET (FP) PO SCH (22:52)
[2018-03-16] MEDS: METOPROLOL TARTRATE 50 MG TABLET (FP) PO SCH (22:52)
[2018-03-16] MEDS: ROSUVASTATIN CA 10 MG TABLET (FP) PO SCH (22:52)
[2018-03-16] MEDS: GABAPENTIN 300 MG CAPSULE (FP) PO SCH (22:52)
[2018-03-16 23:53] VITALS: BMI 26.6
[2018-03-17] MEDS: methylPREDNISolone NA SUCC 40 MG/1 ML VIAL IVPUSH SCH ×3 (02:41→18:46)
[2018-03-17] MEDS: INSULIN SLIDING SCALE (NOVOLOG) 1 VIAL SQ SCH ×4 (06:06→21:22)
[2018-03-17 07:47] LABS: BASO % 0.3 % (0-2.0); HEMATOCRIT 31.9 % (32.4-45.2); HEMOGLOBIN 10.9 GM/dL (10.7-15.3); LYMPH % 19.4 % (8-40); MCH 25.8 pg (25.7-33.7); MCHC 34.2 g/dl (32.0-36.0); MEAN CELL VOLUME 75.6 fl (80-96); MEAN PLT VOLUME 6.8 fl (7.5-11.1); MONO % 7.1 % (3.8-10.2); NEUT % 73.2 % (42.8-82.8); PLATELET COUNT 340 K/MM3 (134-434); RBC 4.22 M/mm3 (3.60-5.2); RDW 15.6 % (11.6-15.6); WHITE BLOOD COUNT 7.7 K/mm3 (4.0-10.0)
[2018-03-17] MEDS: ALBUTEROL SO4 2.5/IPRATROPIUM 0.5 INH SOL 3 ML VIAL.NEB. NEB SCH ×4 (08:01→19:04)
[2018-03-17 08:11] LABS: ALBUMIN 3.2 g/dl (3.4-5.0); ALK PHOS 69 U/L (45-117); ANION GAP 9 MMOL/L (8-16); BILIRUBIN,TOTAL 0.2 mg/dL (0.2-1); BLOOD UREA NITROGEN 16 mg/dL (7-18); CALCIUM 8.6 mg/dL (8.5-10.1); CHLORIDE 107 mmol/L (98-107); CO2 25 mmol/L (21-32); CREATININE 0.8 mg/dL (0.55-1.3); GLUCOSE,RANDOM 192 mg/dL (74-106); MAGNESIUM 2.6 mg/dL (1.8-2.4); POTASSIUM 3.8 mmol/L (3.5-5.1); SGOT/AST 16 U/L (15-37); SGPT/ALT 40 U/L (13-61); SODIUM 141 mmol/L (136-145); TOT PROT 7.1 g/dl (6.4-8.2)
[2018-03-17] MEDS ORDERED: PT OWN MED DRAWER 7, Y5N ONE (09:52)
[2018-03-17] MEDS: ASPIRIN 81 MG CHEWABLE TABLETS PO SCH (09:58)
[2018-03-17] MEDS: ENOXAPARIN NA (PORCINE) 40 MG/0.4 ML DISP.SYRIN SQ SCH (09:58)
[2018-03-17] MEDS: PANTOPRAZOLE 40 MG TABLET (FP) PO SCH (09:58)
[2018-03-17] MEDS: LOSARTAN 50MG/HCTZ 12.5MG 1 TAB (FP) PO SCH (09:58)
[2018-03-17] MEDS: METOPROLOL TARTRATE 50 MG TABLET (FP) PO SCH ×2 (09:58→21:22)
--- NOTE | 2018-03-17 11:14 | CON.PULM ---
Consult Consult Specialty:: PULMONARY Referred by:: CARSON Washington Reason for Consultation:: shortness of breath - History of Present Illness Chief Complaint: shortness of breath History of Present Illness: 67yo female with h/o HTN, DM, hyperlipidemia, CAD, GERD who as admitted with worsening shortness of breath x 5 days. Was seen at [facility] ER, given prednisone without significant relief. She reports a nonproductive cough and wheezing. No chest pain or discomfort. No fevers, chills or sweats. She has never been intubated before, is a never smoker. Maintained on albuterol MDI and nebulizers at home. - Past Medical History Cardio/Vascular: Yes: HTN, Other (VPCs) Pulmonary: Yes: Asthma Gastrointestinal: Yes: Other (Hepatomegaly) ...: No Psych: Yes: Anxiety Endocrine: Yes: Diabetes Mellitus - Past Surgical History Past Surgical History: Yes: - Alcohol/Substance Use Hx Alcohol Use: No History of Substance Use: reports: None - Smoking History Smoking history: Never smoked Have you smoked in the past 12 months: No Aproximately how many cigarettes per day: 0 - Social History ADL: Independent History of Recent Travel: No Home Medications - Allergies Allergies/Adverse Reactions: Allergies Allergy/AdvReac Type Severity Reaction Status Date / Time Penicillins Allergy Intermediate Rash Verified 03/16/18 14:30 morphine Allergy Mild Rash Uncoded 03/16/18 14:30 - Home Medications Home Medications: Ambulatory Orders Albuterol Sulfate Inhaler - [Ventolin HFA Inhaler -] 1 - 2 inh PO QID 07/21/15 Aspirin [ASA -] 81 mg PO DAILY 07/21/15 Loratadine [Claritin -] 10 mg PO DAILY #30 tablet 12/07/15 Sitagliptin Phos/Metformin HCl [Janumet 50-500 mg Tablet] 1 each PO DAILY Folic Acid 1 mg PO DAILY 12/10/16 Metoclopramide HCl 5 mg PO PRN PRN 12/10/16 Omeprazole 40 mg PO DAILY 12/10/16 Metoprolol Tartrate [Lopressor -] 50 mg PO BID 01/05/18 Dapagliflozin Propanediol [Farxiga] 10 mg PO DAILY 03/16/18 Gabapentin [Neurontin] 300 mg PO HS 03/16/18 Icosapent Ethyl [Vascepa] 1 gm PO BID 03/16/18 Insulin Glargine,Hum.rec.anlog [Sanjuanita Reed] 300 unit SQ AC 03/16/18 Losartan/Hydrochlorothiazide [Losartan-Hctz 100-25 mg Tab] 1 each PO DAILY 03/16 Meclizine HCl 25 mg PO HS PRN 03/16/18 Meloxicam 5 mg PO TID 03/16/18 Mirtazapine 30 mg PO HS 03/16/18 Rosuvastatin Calcium [Crestor] 10 mg PO DAILY 03/16/18 Family Disease History - Family Disease History Family Disease History: [place]: Mother (Bladder) Review of Systems - Review of Systems Constitutional: denies: Chills, Fever Eyes: denies: Recent Change in Vision HENT: denies: Nasal Congestion, Throat Pain Neck: denies: Stiffness, Tenderness Cardiovascular: reports: Shortness of Breath. denies: Chest Pain, Edema, Palpitations Respiratory: reports: Cough, Wheezing. denies: Hemoptysis Gastrointestinal: denies: Abdominal Pain, Nausea, Vomiting Genitourinary: denies: Dysuria, Hematuria Neurological: denies: Dizziness, Headache Endocrine: denies: Unexplained Weight Loss Physical Exam Vital Sings: Vital Signs Temperature 97.5 F L 03/17/18 06:13 Pulse Rate 58 L 03/17/18 06:13 Respiratory Rate 17 03/17/18 06:13 Blood Pressure 145/74 03/17/18 06:13 O2 Sat by Pulse Oximetry (%) 95 03/17/18 00:00 Constitutional: Yes: Calm Eyes: Yes: Conjunctiva Clear, EOM Intact HENT: Yes: Atraumatic, Normocephalic Neck: Yes: Supple, Trachea Midline Cardiovascular: Yes: Regular Rate and Rhythm Respiratory: Yes: Rhonchi, Wheezes ...Clubbing: No Gastrointestinal: Yes: Normal Bowel Sounds, Soft. No: Tenderness Edema: No Neurological: Yes: Alert, Oriented Labs: CBC, BMP 03/17/18 06:15 03/17/18 06:15 Imaging - Results Chest X-ray: Report Reviewed, Image Reviewed Problem List - Problems (1) Asthma exacerbation Code(s): J45.901 - UNSPECIFIED ASTHMA WITH (ACUTE) EXACERBATION Qualifiers: Asthma severity: unspecified severity Asthma persistence: unspecified Qualified Code(s): J45.901 - Unspecified asthma with (acute) exacerbation (2) CAD (coronary artery disease) Code(s): I25.10 - ATHSCL HEART DISEASE OF [place] CORONARY ARTERY W/O ANG PCTRS Qualifiers: Coronary Disease-Associated Artery/Lesion type: unspecified vessel or lesion type Associated angina: with unspecified angina (3) Diabetes mellitus Code(s): E11.9 - TYPE 2 DIABETES MELLITUS WITHOUT COMPLICATIONS Qualifiers: Diabetes mellitus type: type 2 Diabetes mellitus complication status: with neurologic complications (4) GERD (gastroesophageal reflux disease) Code(s): K21.9 - GASTRO-ESOPHAGEAL REFLUX DISEASE WITHOUT ESOPHAGITIS Qualifiers: Esophagitis presence: esophagitis presence not specified Qualified Code(s) : K21.9 - Gastro-esophageal reflux disease without esophagitis (5) Hypertension Code(s): I10 - ESSENTIAL (PRIMARY) HYPERTENSION Assessment/Plan Acute Asthma Exacerbation CAD HTN DM Hyperlipidemia Lung Nodule - continue medrol - inhaled bronchodilators standing and PRN - monitor peak flow - singulair - O2 to keep SpO2 >90% - outpt PFTs - outpt f/u of lung nodule - when ready for discharge should be on maintenance ICS/LABA - DVT prophylaxis Thank you for this consult Andres Freedman MD
--- NOTE | 2018-03-17 11:17 | EKG ---
Test Reason : Blood Pressure : / mmHG Vent. Rate : 106 BPM Atrial Rate : 106 BPM P-R Int : 154 ms QRS Dur : 082 ms QT Int : 342 ms P-R-T Axes : 053 -19 031 degrees QTc Int : 454 ms SINUS TACHYCARDIA VOLTAGE CRITERIA FOR LEFT VENTRICULAR HYPERTROPHY NONSPECIFIC T WAVE ABNORMALITY ABNORMAL ECG WHEN COMPARED WITH ECG OF 05-JAN-2018 00:15, VENT. RATE HAS INCREASED BY 40 BPM Confirmed by ANGEL MILLARD MD ([id number]) on 03/17/2018 11:16:50 AM Referred By: Confirmed By:ANGEL MILLARD MD
--- NOTE | 2018-03-17 11:28 | PN ---
Progress Note, Physician Chief Complaint: Asthma Exacerbation History of Present Illness: NAD slight SOB on exertion Still wheezing Seen by Pulmonary On solumedrol 40 mg Q8H IVP CXR unremarkable - Current Medication List Current Medications: Active Medications Albuterol Sulfate (Ventolin 0.083% Nebulizer Soln -) 1 amp NEB Q4H PRN PRN Reason: SHORT OF BREATH/WHEEZING Albuterol/Ipratropium (Duoneb -) 1 amp NEB RQID [facility] Last Admin: 03/17/18 08:01 Dose: 1 amp Aspirin (Asa -) 81 mg PO DAILY [facility] Last Admin: 03/17/18 09:58 Dose: 81 mg Enoxaparin Sodium (Lovenox -) 40 mg SQ DAILY [facility] Last Admin: 03/17/18 09:58 Dose: 40 mg Gabapentin (Neurontin -) 300 mg PO HS [facility] Last Admin: 03/16/18 22:52 Dose: 300 mg HCTZ/Losartan Potassium (Hyzaar -) 1 tab PO DAILY [facility] Last Admin: 03/17/18 09:58 Dose: 1 tab Insulin Aspart (Novolog Vial Sliding Scale -) 1 vial SQ ACHS [facility]; Protocol Last Admin: 03/17/18 06:06 Dose: 2 units Methylprednisolone Sodium Succinate (Solu-Medrol -) 40 mg IVPUSH Q8H-IV [facility] Last Admin: 03/17/18 09:58 Dose: 40 mg Metoprolol Tartrate (Lopressor -) 50 mg PO BID [facility] Last Admin: 03/17/18 09:58 Dose: 50 mg Mirtazapine (Remeron -) 30 mg PO HS [facility] Last Admin: 03/16/18 22:52 Dose: 30 mg Montelukast Sodium (Singulair -) 10 mg PO [facility] Pantoprazole Sodium (Protonix -) 40 mg PO DAILY [facility] Last Admin: 03/17/18 09:58 Dose: 40 mg Rosuvastatin Calcium (Crestor -) 10 mg PO HS [facility] Last Admin: 03/16/18 22:52 Dose: 10 mg - Objective Vital Signs: Vital Signs Temperature 97.5 F L 03/17/18 06:13 Pulse Rate 58 L 03/17/18 06:13 Respiratory Rate 17 03/17/18 06:13 Blood Pressure 145/74 03/17/18 06:13 O2 Sat by Pulse Oximetry (%) 95 03/17/18 00:00 Constitutional: Yes: Well Nourished, No Distress, Calm Cardiovascular: Yes: Regular Rate and Rhythm Respiratory: Yes: SOB on Exertion, Wheezes Gastrointestinal: Yes: Normal Bowel Sounds, Soft Musculoskeletal: Yes: WNL Extremities: Yes: WNL Edema: No Peripheral Pulses WNL: Yes Neurological: Yes: Alert, Oriented Psychiatric: Yes: Alert, Oriented Labs: CBC, BMP 03/17/18 06:15 03/17/18 06:15 Problem List - Problems (1) Asthma exacerbation Assessment/Plan: -Pulmonary consult -Bronchodilators -Solumedrol 40 mg Q8Hh IVP-taper as patient improves Code(s): J45.901 - UNSPECIFIED ASTHMA WITH (ACUTE) EXACERBATION Qualifiers: Asthma severity: unspecified severity Asthma persistence: unspecified Qualified Code(s): J45.901 - Unspecified asthma with (acute) exacerbation (2) CAD (coronary artery disease) Assessment/Plan: -On statin Aspirin and BB Code(s): I25.10 - ATHSCL HEART DISEASE OF [place] CORONARY ARTERY W/O ANG PCTRS Qualifiers: Coronary Disease-Associated Artery/Lesion type: unspecified vessel or lesion type Associated angina: with unspecified angina (3) Diabetes mellitus Assessment/Plan: -A1c at 8.4 -Diabetic /low sodium diet -Novolog sliding scale -Takes toujeo at home-unsure what dosage -resume Januvia-increase to 100 mg po daily+ metformin 1000 mg po BID-would continue this dosage outpatient upon discharge -[facility] HS -RD consult Code(s): E11.9 - TYPE 2 DIABETES MELLITUS WITHOUT COMPLICATIONS Qualifiers: Diabetes mellitus type: type 2 Diabetes mellitus complication status: with neurologic complications Assessment/Plan see problem list Self ambulatory DVT prophylaxis
[2018-03-17] MEDS: ROSUVASTATIN CA 10 MG TABLET (FP) PO SCH (21:22)
[2018-03-17] MEDS: MIRTAZAPINE 30 MG TABLET (FP) PO SCH (21:22)
[2018-03-17] MEDS: GABAPENTIN 300 MG CAPSULE (FP) PO SCH (21:22)
[2018-03-17] MEDS: MONTELUKAST NA 10 MG TABLET PO SCH (21:22)
[2018-03-18] MEDS: methylPREDNISolone NA SUCC 40 MG/1 ML VIAL IVPUSH SCH ×3 (01:40→18:11)
[2018-03-18] MEDS: INSULIN SLIDING SCALE (NOVOLOG) 1 VIAL SQ SCH ×4 (06:13→21:45)
[2018-03-18] MEDS: ALBUTEROL SO4 2.5/IPRATROPIUM 0.5 INH SOL 3 ML VIAL.NEB. NEB SCH ×2 (07:48→11:02)
[2018-03-18] MEDS ORDERED: LOSARTAN 50MG/HCTZ 12.5MG 1 TAB (FP) PO ONE (10:53)
--- NOTE | 2018-03-18 10:57 | PN ---
Progress Note, Physician Chief Complaint: Asthma Exacerbation History of Present Illness: NAD slight SOB on exertion Still wheezing Seen by Pulmonary On solumedrol 40 mg Q8H IVP CXR unremarkable - Current Medication List Current Medications: Active Medications Albuterol Sulfate (Ventolin 0.083% Nebulizer Soln -) 1 amp NEB Q4H PRN PRN Reason: SHORT OF BREATH/WHEEZING Albuterol/Ipratropium (Duoneb -) 1 amp NEB RQID [facility] Last Admin: 03/18/18 07:48 Dose: 1 amp Aspirin (Asa -) 81 mg PO DAILY [facility] Last Admin: 03/17/18 09:58 Dose: 81 mg Enoxaparin Sodium (Lovenox -) 40 mg SQ DAILY [facility] Last Admin: 03/17/18 09:58 Dose: 40 mg Folic Acid (Folic Acid -) 1 mg PO DAILY [facility] Gabapentin (Neurontin -) 300 mg PO HS [facility] Last Admin: 03/17/18 21:22 Dose: 300 mg HCTZ/Losartan Potassium (Hyzaar -) 2 tab PO DAILY [facility] HCTZ/Losartan Potassium (Hyzaar -) 1 tab PO ONCE ONE Stop: 03/18/18 10:54 Insulin Aspart (Novolog Vial Sliding Scale -) 1 vial SQ [facility]; Protocol Last Admin: 03/18/18 06:13 Dose: 4 units Loratadine (Claritin -) 10 mg PO DAILY [facility] Meclizine HCl (Antivert -) 25 mg PO HS PRN PRN Reason: VERTIGO Metformin HCl (Glucophage -) 1,000 mg PO BID@0700,1630 [facility] Methylprednisolone Sodium Succinate (Solu-Medrol -) 40 mg IVPUSH Q8H-IV [facility] Last Admin: 03/18/18 01:40 Dose: 40 mg Metoprolol Tartrate (Lopressor -) 50 mg PO BID [facility] Last Admin: 03/17/18 21:22 Dose: 50 mg Mirtazapine (Remeron -) 30 mg PO HS [facility] Last Admin: 03/17/18 21:22 Dose: 30 mg Montelukast Sodium (Singulair -) 10 mg PO HS [facility] Last Admin: 03/17/18 21:22 Dose: 10 mg Pantoprazole Sodium (Protonix -) 40 mg PO DAILY [facility] Last Admin: 03/17/18 09:58 Dose: 40 mg Rosuvastatin Calcium (Crestor -) 10 mg PO HS [facility] Last Admin: 03/17/18 21:22 Dose: 10 mg Sitagliptin Phosphate (Januvia -) 100 mg PO DAILY@0700 [facility] - Objective Vital Signs: Vital Signs Temperature 98.2 F 03/18/18 06:32 Pulse Rate 60 03/18/18 06:32 Respiratory Rate 20 03/18/18 06:32 Blood Pressure 150/79 03/18/18 06:32 O2 Sat by Pulse Oximetry (%) 96 03/17/18 21:00 Constitutional: Yes: Well Nourished, No Distress, Calm Cardiovascular: Yes: Regular Rate and Rhythm Respiratory: Yes: Rhonchi, SOB on Exertion, Wheezes Gastrointestinal: Yes: Normal Bowel Sounds, Soft Musculoskeletal: Yes: WNL Extremities: Yes: WNL Edema: No Peripheral Pulses WNL: Yes Neurological: Yes: Alert, Oriented Psychiatric: Yes: Alert, Oriented Labs: CBC, BMP 03/17/18 06:15 03/17/18 06:15 Problem List - Problems (1) Asthma exacerbation Assessment/Plan: -Pulmonary consult -Bronchodilators -Solumedrol 40 mg Q8Hh IVP-taper as patient improves -Add mucinex 2 tabs bid -Add Mucomyst BID -Added Chest PT QID Code(s): J45.901 - UNSPECIFIED ASTHMA WITH (ACUTE) EXACERBATION Qualifiers: Asthma severity: unspecified severity Asthma persistence: unspecified Qualified Code(s): J45.901 - Unspecified asthma with (acute) exacerbation (2) CAD (coronary artery disease) Assessment/Plan: -On statin Aspirin and BB Code(s): I25.10 - ATHSCL HEART DISEASE OF [place] CORONARY ARTERY W/O ANG PCTRS Qualifiers: Coronary Disease-Associated Artery/Lesion type: unspecified vessel or lesion type Associated angina: with unspecified angina (3) Diabetes mellitus Assessment/Plan: -A1c at 8.4 -Diabetic /low sodium diet -Novolog sliding scale -Takes toujeo at home-unsure what dosage -resume Januvia-increase to 100 mg po daily+ metformin 1000 mg po BID-would continue this dosage outpatient upon discharge -[facility] -RD consult Code(s): E11.9 - TYPE 2 DIABETES MELLITUS WITHOUT COMPLICATIONS Qualifiers: Diabetes mellitus type: type 2 Diabetes mellitus complication status: with neurologic complications Assessment/Plan see problem list Self ambulatory DVT prophylaxis
--- NOTE | 2018-03-18 10:57 | PN ---
Progress Note (short form) - Note Progress Note: PULMONARY Still with shortness of breath, chest tightness, cough and wheezing. Vital Signs Period Temp Pulse Resp BP Sys/Mallory Pulse Ox Last 24 Hr 97.9 F-98.2 F 60-81 18-20 144-164/78-83 96 Gen: mildly tachypneic with speaking Heart: RRR Lung: bilateral rhonchi, wheezes Abd: soft, nontender Ext: no edema CBC, BMP 03/17/18 06:15 03/17/18 06:15 Active Medications Albuterol Sulfate (Ventolin 0.083% Nebulizer Soln -) 1 amp NEB Q4H PRN PRN Reason: SHORT OF BREATH/WHEEZING Albuterol/Ipratropium (Duoneb -) 1 amp NEB RQID [facility] Last Admin: 03/18/18 07:48 Dose: 1 amp Aspirin (Asa -) 81 mg PO DAILY [facility] Last Admin: 03/17/18 09:58 Dose: 81 mg Enoxaparin Sodium (Lovenox -) 40 mg SQ DAILY [facility] Last Admin: 03/17/18 09:58 Dose: 40 mg Folic Acid (Folic Acid -) 1 mg PO DAILY [facility] Gabapentin (Neurontin -) 300 mg PO HS [facility] Last Admin: 03/17/18 21:22 Dose: 300 mg HCTZ/Losartan Potassium (Hyzaar -) 2 tab PO DAILY [facility] HCTZ/Losartan Potassium (Hyzaar -) 1 tab PO ONCE ONE Stop: 03/18/18 10:54 Insulin Aspart (Novolog Vial Sliding Scale -) 1 vial SQ ACHS [facility]; Protocol Last Admin: 03/18/18 06:13 Dose: 4 units Loratadine (Claritin -) 10 mg PO DAILY [facility] Meclizine HCl (Antivert -) 25 mg PO HS PRN PRN Reason: VERTIGO Metformin HCl (Glucophage -) 1,000 mg PO BID@0700,1630 [facility] Methylprednisolone Sodium Succinate (Solu-Medrol -) 40 mg IVPUSH Q8H-IV [facility] Last Admin: 03/18/18 01:40 Dose: 40 mg Metoprolol Tartrate (Lopressor -) 50 mg PO BID [facility] Last Admin: 03/17/18 21:22 Dose: 50 mg Mirtazapine (Remeron -) 30 mg PO HS [facility] Last Admin: 03/17/18 21:22 Dose: 30 mg Montelukast Sodium (Singulair -) 10 mg PO HS [facility] Last Admin: 03/17/18 21:22 Dose: 10 mg Pantoprazole Sodium (Protonix -) 40 mg PO DAILY [facility] Last Admin: 03/17/18 09:58 Dose: 40 mg Rosuvastatin Calcium (Crestor -) 10 mg PO HS [facility] Last Admin: 03/17/18 21:22 Dose: 10 mg Sitagliptin Phosphate (Januvia -) 100 mg PO DAILY@0700 [facility] A/P Acute Asthma Exacerbation CAD HTN DM Hyperlipidemia Lung Nodule - will add course of azithromycin - continue medrol at current dose - inhaled bronchodilators standing and PRN - monitor peak flow - singulair - O2 to keep SpO2 >90% - outpt PFTs - outpt f/u of lung nodule - when ready for discharge should be on maintenance ICS/LABA - DVT prophylaxis Problem List - Problems (1) Asthma exacerbation Code(s): J45.901 - UNSPECIFIED ASTHMA WITH (ACUTE) EXACERBATION Qualifiers: Qualified Code(s): J45.901 - Unspecified asthma with (acute) exacerbation (2) CAD (coronary artery disease) Code(s): I25.10 - ATHSCL HEART DISEASE OF [place] CORONARY ARTERY W/O ANG PCTRS (3) Diabetes mellitus Code(s): E11.9 - TYPE 2 DIABETES MELLITUS WITHOUT COMPLICATIONS (4) GERD (gastroesophageal reflux disease) Code(s): K21.9 - GASTRO-ESOPHAGEAL REFLUX DISEASE WITHOUT ESOPHAGITIS Qualifiers: Qualified Code(s): K21.9 - Gastro-esophageal reflux disease without esophagitis (5) Hypertension Code(s): I10 - ESSENTIAL (PRIMARY) HYPERTENSION
[2018-03-18] MEDS: LOSARTAN 50MG/HCTZ 12.5MG 1 TAB (FP) PO SCH (11:08)
[2018-03-18] MEDS: ASPIRIN 81 MG CHEWABLE TABLETS PO SCH (11:10)
[2018-03-18] MEDS: LORATADINE 10 MG TABLET PO SCH (11:10)
[2018-03-18] MEDS: FOLIC ACID 1 MG TABLET (FP) PO SCH (11:10)
[2018-03-18] MEDS: PANTOPRAZOLE 40 MG TABLET (FP) PO SCH (11:10)
[2018-03-18] MEDS: ENOXAPARIN NA (PORCINE) 40 MG/0.4 ML DISP.SYRIN SQ SCH (11:10)
[2018-03-18] MEDS: AZITHROMYCIN IVPB 500 MG/250 ML BAG IVPB SCH (11:10)
[2018-03-18] MEDS: METOPROLOL TARTRATE 50 MG TABLET (FP) PO SCH ×2 (11:10→21:45)
[2018-03-18] MEDS ORDERED: PT OWN MED DRAWER 7, Y5N ONE ×2 (11:16→21:40)
[2018-03-18] MEDS ORDERED: INSULIN (NOVOLOG) ASPART 100 UNITS/ML 10ML VIAL ONE (11:21)
[2018-03-18] MEDS: guaiFENesin/D-METHORPHAN HB 1 EACH TAB.ER.12H PO SCH ×2 (13:46→22:59)
[2018-03-18] MEDS: metFORMIN HCL 500 MG TABLET (FP) PO SCH (16:18)
[2018-03-18] MEDS ORDERED: ACETYLCYSTEINE 20% 200MG/ML 4 ML VIAL *FOR ORAL / INH USE ONLY NEB SCH (20:00)
[2018-03-18] MEDS: ALBUTEROL SO4 0.083% IH SOL 2.5 MG/3 ML VIAL.NEB. NEB SCH (20:50)
[2018-03-18] MEDS: MONTELUKAST NA 10 MG TABLET PO SCH (21:45)
[2018-03-18] MEDS: ROSUVASTATIN CA 10 MG TABLET (FP) PO SCH (21:45)
[2018-03-18] MEDS: GABAPENTIN 300 MG CAPSULE (FP) PO SCH (21:45)
[2018-03-18] MEDS: MIRTAZAPINE 30 MG TABLET (FP) PO SCH (21:45)
[2018-03-18] MEDS ORDERED: MECLIZINE HCL 25 MG TABLET (FP) PO PRN (22:00)
[2018-03-19] MEDS: methylPREDNISolone NA SUCC 40 MG/1 ML VIAL IVPUSH SCH ×3 (01:50→17:28)
[2018-03-19] MEDS ORDERED: INSULIN (NOVOLOG) ASPART 100 UNITS/ML 10ML VIAL ONE ×4 (06:13→20:54)
[2018-03-19] MEDS: metFORMIN HCL 500 MG TABLET (FP) PO SCH ×2 (06:26→15:58)
[2018-03-19] MEDS: sitaGLIPtin PHOSPHATE 100 MG TABLET (FP) PO SCH (06:26)
[2018-03-19] MEDS: INSULIN SLIDING SCALE (NOVOLOG) 1 VIAL SQ SCH ×4 (06:26→21:10)
[2018-03-19] MEDS: ALBUTEROL SO4 0.083% IH SOL 2.5 MG/3 ML VIAL.NEB. NEB SCH ×4 (09:00→20:37)
[2018-03-19] MEDS: AZITHROMYCIN IVPB 500 MG/250 ML BAG IVPB SCH (09:48)
[2018-03-19] MEDS: LORATADINE 10 MG TABLET PO SCH (09:49)
[2018-03-19] MEDS: ENOXAPARIN NA (PORCINE) 40 MG/0.4 ML DISP.SYRIN SQ SCH (09:49)
[2018-03-19] MEDS: ASPIRIN 81 MG CHEWABLE TABLETS PO SCH (09:49)
[2018-03-19] MEDS: METOPROLOL TARTRATE 50 MG TABLET (FP) PO SCH ×2 (09:49→21:09)
[2018-03-19] MEDS: PANTOPRAZOLE 40 MG TABLET (FP) PO SCH (09:49)
[2018-03-19] MEDS: LOSARTAN 50MG/HCTZ 12.5MG 1 TAB (FP) PO SCH (09:49)
[2018-03-19] MEDS: FOLIC ACID 1 MG TABLET (FP) PO SCH (10:02)
[2018-03-19] MEDS: guaiFENesin/D-METHORPHAN HB 1 EACH TAB.ER.12H PO SCH ×2 (10:03→21:08)
--- NOTE | 2018-03-19 14:41 | PN ---
Progress Note, Physician History of Present Illness: pulmonary alert,less dyspneic,+ cough - Current Medication List Current Medications: Active Medications Acetylcysteine (Mucomyst 20 Oral / Inh Use Only*) 400 mg NEB RBID AYDE Albuterol Sulfate (Ventolin 0.083% Nebulizer Soln -) 1 amp NEB Q4H PRN PRN Reason: SHORT OF BREATH/WHEEZING Albuterol Sulfate (Ventolin 0.083% Nebulizer Soln -) 1 amp NEB RQID [facility] Last Admin: 03/19/18 12:25 Dose: 1 amp Aspirin (Asa -) 81 mg PO DAILY [facility] Last Admin: 03/19/18 09:49 Dose: 81 mg Enoxaparin Sodium (Lovenox -) 40 mg SQ DAILY [facility] Last Admin: 03/19/18 09:49 Dose: 40 mg Folic Acid (Folic Acid -) 1 mg PO DAILY [facility] Last Admin: 03/19/18 10:02 Dose: 1 mg Gabapentin (Neurontin -) 300 mg PO HS [facility] Last Admin: 03/18/18 21:45 Dose: 300 mg Guaifenesin (Mucinex Dm -) 2 tablet PO BID [facility] Last Admin: 03/19/18 10:03 Dose: 2 tablet HCTZ/Losartan Potassium (Hyzaar -) 2 tab PO DAILY [facility] Last Admin: 03/19/18 09:49 Dose: 2 tab Azithromycin (Zithromax 500mg Ivpb (Pre-Docked)) 500 mg in 250 mls @ 250 mls/ hr IVPB DAILY [facility] Last Admin: 03/19/18 09:48 Dose: 250 mls/hr Insulin Aspart (Novolog Vial Sliding Scale -) 1 vial SQ ACHS [facility]; Protocol Last Admin: 03/19/18 11:27 Dose: 6 units Loratadine (Claritin -) 10 mg PO DAILY [facility] Last Admin: 03/19/18 09:49 Dose: 10 mg Meclizine HCl (Antivert -) 25 mg PO HS PRN PRN Reason: VERTIGO Metformin HCl (Glucophage -) 1,000 mg PO BID@0700,1630 [facility] Last Admin: 03/19/18 06:26 Dose: 1,000 mg Methylprednisolone Sodium Succinate (Solu-Medrol -) 40 mg IVPUSH Q8H-IV [facility] Last Admin: 03/19/18 09:49 Dose: 40 mg Metoprolol Tartrate (Lopressor -) 50 mg PO BID [facility] Last Admin: 03/19/18 09:49 Dose: 50 mg Mirtazapine (Remeron -) 30 mg PO [facility] Last Admin: 03/18/18 21:45 Dose: 30 mg Montelukast Sodium (Singulair -) 10 mg PO [facility] Last Admin: 03/18/18 21:45 Dose: 10 mg Pantoprazole Sodium (Protonix -) 40 mg PO DAILY [facility] Last Admin: 03/19/18 09:49 Dose: 40 mg Rosuvastatin Calcium (Crestor -) 10 mg PO [facility] Last Admin: 03/18/18 21:45 Dose: 10 mg Sitagliptin Phosphate (Januvia -) 100 mg PO DAILY@0700 [facility] Last Admin: 03/19/18 06:26 Dose: 100 mg - Objective Vital Signs: Vital Signs Temperature 98.2 F 03/19/18 09:00 Pulse Rate 79 03/19/18 09:00 Respiratory Rate 18 03/19/18 09:00 Blood Pressure 149/75 03/19/18 09:00 O2 Sat by Pulse Oximetry (%) 94 L 03/19/18 09:00 Constitutional: Yes: Well Nourished, Calm Eyes: Yes: WNL HENT: Yes: WNL Neck: Yes: WNL Cardiovascular: Yes: Regular Rate and Rhythm, S1, S2 Respiratory: Yes: Rhonchi, Wheezes (scattered sandy wheezes and rhonchi) Gastrointestinal: Yes: Normal Bowel Sounds, Soft Extremities: Yes: WNL Edema: No Labs: CBC, BMP Assessment/Plan A/P Acute Asthma Exacerbation CAD HTN DM Hyperlipidemia Lung Nodule - azithromycin - medrol at current dose - inhaled bronchodilators standing and PRN - peak flow - O2 to keep SpO2 >90% - outpt PFTs - outpt f/u of lung nodule - when ready for discharge should be on maintenance ICS/LABA - DVT prophylaxis Problem List - Problems (1) Asthma exacerbation Code(s): J45.901 - UNSPECIFIED ASTHMA WITH (ACUTE) EXACERBATION Qualifiers: Qualified Code(s): J45.901 - Unspecified asthma with (acute) exacerbation (2) CAD (coronary artery disease) Code(s): I25.10 - ATHSCL HEART DISEASE OF [place] CORONARY ARTERY W/O ANG PCTRS (3) Diabetes mellitus Code(s): E11.9 - TYPE 2 DIABETES MELLITUS WITHOUT COMPLICATIONS (4) GERD (gastroesophageal reflux disease) Code(s): K21.9 - GASTRO-ESOPHAGEAL REFLUX DISEASE WITHOUT ESOPHAGITIS Qualifiers: Qualified Code(s): K21.9 - Gastro-esophageal reflux disease without esophagitis (5) Hypertension Code(s): I10 - ESSENTIAL (PRIMARY) HYPERTENSION
--- NOTE | 2018-03-19 14:52 | PN ---
Progress Note, Physician Chief Complaint: Asthma Exacerbation History of Present Illness: NAD slight SOB on exertion, but feels a little better Seen by Pulmonary On solumedrol 40 mg Q8H IVP Started on Azithromycin IVPB - Current Medication List Current Medications: Active Medications Acetylcysteine (Mucomyst 20 Oral / Inh Use Only*) 400 mg NEB RBID AYDE Albuterol Sulfate (Ventolin 0.083% Nebulizer Soln -) 1 amp NEB Q4H PRN PRN Reason: SHORT OF BREATH/WHEEZING Albuterol Sulfate (Ventolin 0.083% Nebulizer Soln -) 1 amp NEB RQID [facility] Last Admin: 03/19/18 12:25 Dose: 1 amp Aspirin (Asa -) 81 mg PO DAILY [facility] Last Admin: 03/19/18 09:49 Dose: 81 mg Enoxaparin Sodium (Lovenox -) 40 mg SQ DAILY [facility] Last Admin: 03/19/18 09:49 Dose: 40 mg Folic Acid (Folic Acid -) 1 mg PO DAILY [facility] Last Admin: 03/19/18 10:02 Dose: 1 mg Gabapentin (Neurontin -) 300 mg PO HS [facility] Last Admin: 03/18/18 21:45 Dose: 300 mg Guaifenesin (Mucinex Dm -) 2 tablet PO BID [facility] Last Admin: 03/19/18 10:03 Dose: 2 tablet HCTZ/Losartan Potassium (Hyzaar -) 2 tab PO DAILY [facility] Last Admin: 03/19/18 09:49 Dose: 2 tab Azithromycin (Zithromax 500mg Ivpb (Pre-Docked)) 500 mg in 250 mls @ 250 mls/ hr IVPB DAILY [facility] Last Admin: 03/19/18 09:48 Dose: 250 mls/hr Insulin Aspart (Novolog Vial Sliding Scale -) 1 vial SQ ACHS [facility]; Protocol Last Admin: 03/19/18 11:27 Dose: 6 units Loratadine (Claritin -) 10 mg PO DAILY [facility] Last Admin: 03/19/18 09:49 Dose: 10 mg Meclizine HCl (Antivert -) 25 mg PO HS PRN PRN Reason: VERTIGO Metformin HCl (Glucophage -) 1,000 mg PO BID@0700,1630 [facility] Last Admin: 03/19/18 06:26 Dose: 1,000 mg Methylprednisolone Sodium Succinate (Solu-Medrol -) 40 mg IVPUSH Q8H-IV [facility] Last Admin: 03/19/18 09:49 Dose: 40 mg Metoprolol Tartrate (Lopressor -) 50 mg PO BID [facility] Last Admin: 03/19/18 09:49 Dose: 50 mg Mirtazapine (Remeron -) 30 mg PO [facility] Last Admin: 03/18/18 21:45 Dose: 30 mg Montelukast Sodium (Singulair -) 10 mg PO [facility] Last Admin: 03/18/18 21:45 Dose: 10 mg Pantoprazole Sodium (Protonix -) 40 mg PO DAILY [facility] Last Admin: 03/19/18 09:49 Dose: 40 mg Rosuvastatin Calcium (Crestor -) 10 mg PO [facility] Last Admin: 03/18/18 21:45 Dose: 10 mg Sitagliptin Phosphate (Januvia -) 100 mg PO DAILY@0700 [facility] Last Admin: 03/19/18 06:26 Dose: 100 mg - Objective Vital Signs: Vital Signs Temperature 98.2 F 03/19/18 09:00 Pulse Rate 79 03/19/18 09:00 Respiratory Rate 18 03/19/18 09:00 Blood Pressure 149/75 03/19/18 09:00 O2 Sat by Pulse Oximetry (%) 94 L 03/19/18 09:00 Constitutional: Yes: Well Nourished, No Distress, Calm Cardiovascular: Yes: Regular Rate and Rhythm Respiratory: Yes: SOB on Exertion, Wheezes Gastrointestinal: Yes: Normal Bowel Sounds, Soft Musculoskeletal: Yes: WNL Extremities: Yes: WNL Edema: No Peripheral Pulses WNL: Yes Neurological: Yes: Alert, Oriented Psychiatric: Yes: Alert, Oriented Labs: CBC, BMP 03/17/18 06:15 03/17/18 06:15 Problem List - Problems (1) Asthma exacerbation Assessment/Plan: -Pulmonary consult -Bronchodilators -Solumedrol 40 mg Q8Hh IVP-taper as patient improves -Mucinex 2 tabs bid -Mucomyst BID -Added Chest PT QID -Started on Azithromycin IVPB Code(s): J45.901 - UNSPECIFIED ASTHMA WITH (ACUTE) EXACERBATION Qualifiers: Asthma severity: unspecified severity Asthma persistence: unspecified Qualified Code(s): J45.901 - Unspecified asthma with (acute) exacerbation (2) CAD (coronary artery disease) Assessment/Plan: -On statin Aspirin and BB Code(s): I25.10 - ATHSCL HEART DISEASE OF [place] CORONARY ARTERY W/O ANG PCTRS Qualifiers: Coronary Disease-Associated Artery/Lesion type: unspecified vessel or lesion type Associated angina: with unspecified angina (3) Diabetes mellitus Assessment/Plan: -A1c at 8.4 -Diabetic /low sodium diet -Novolog sliding scale -Takes toujeo at home-unsure what dosage -resume Januvia-increase to 100 mg po daily+ metformin 1000 mg po BID-would continue this dosage outpatient upon discharge -[facility] HS -RD consult Code(s): E11.9 - TYPE 2 DIABETES MELLITUS WITHOUT COMPLICATIONS Qualifiers: Diabetes mellitus type: type 2 Diabetes mellitus complication status: with neurologic complications (4) Hypertension Assessment/Plan: -Resumed on Hyzaar-100/25 mg po daily -On Metoprolol Tart 50 mg po bid -monitor trend Code(s): I10 - ESSENTIAL (PRIMARY) HYPERTENSION Assessment/Plan see problem list DVT prophylaxis Self ambulatory
[2018-03-19] MEDS: ACETYLCYSTEINE 20% 200MG/ML 4 ML VIAL *FOR ORAL / INH USE ONLY NEB SCH (20:36)
[2018-03-19] MEDS ORDERED: PT OWN MED DRAWER 7, Y5N ONE (20:56)
[2018-03-19] MEDS: ROSUVASTATIN CA 10 MG TABLET (FP) PO SCH (21:07)
[2018-03-19] MEDS: MONTELUKAST NA 10 MG TABLET PO SCH (21:08)
[2018-03-19] MEDS: GABAPENTIN 300 MG CAPSULE (FP) PO SCH (21:09)
[2018-03-19] MEDS: MIRTAZAPINE 30 MG TABLET (FP) PO SCH (21:09)
[2018-03-20] MEDS: methylPREDNISolone NA SUCC 40 MG/1 ML VIAL IVPUSH SCH ×3 (02:55→17:09)
[2018-03-20] MEDS: metFORMIN HCL 500 MG TABLET (FP) PO SCH ×2 (06:28→15:43)
[2018-03-20] MEDS: sitaGLIPtin PHOSPHATE 100 MG TABLET (FP) PO SCH (06:28)
[2018-03-20] MEDS: INSULIN SLIDING SCALE (NOVOLOG) 1 VIAL SQ SCH ×4 (06:29→21:54)
[2018-03-20] MEDS: ALBUTEROL SO4 0.083% IH SOL 2.5 MG/3 ML VIAL.NEB. NEB SCH (07:48)
[2018-03-20] MEDS: ACETYLCYSTEINE 20% 200MG/ML 4 ML VIAL *FOR ORAL / INH USE ONLY NEB SCH ×2 (07:48→20:23)
[2018-03-20] MEDS: LOSARTAN 50MG/HCTZ 12.5MG 1 TAB (FP) PO SCH (09:20)
[2018-03-20] MEDS: LORATADINE 10 MG TABLET PO SCH (09:20)
[2018-03-20] MEDS: FOLIC ACID 1 MG TABLET (FP) PO SCH (09:20)
[2018-03-20] MEDS: PANTOPRAZOLE 40 MG TABLET (FP) PO SCH (09:20)
[2018-03-20] MEDS: METOPROLOL TARTRATE 50 MG TABLET (FP) PO SCH ×2 (09:20→21:52)
[2018-03-20] MEDS: ASPIRIN 81 MG CHEWABLE TABLETS PO SCH (09:20)
[2018-03-20] MEDS: ENOXAPARIN NA (PORCINE) 40 MG/0.4 ML DISP.SYRIN SQ SCH (09:20)
[2018-03-20] MEDS: AZITHROMYCIN IVPB 500 MG/250 ML BAG IVPB SCH (09:21)
[2018-03-20] MEDS: guaiFENesin/D-METHORPHAN HB 1 EACH TAB.ER.12H PO SCH ×2 (09:28→21:52)
--- NOTE | 2018-03-20 10:50 | PN ---
Progress Note, Physician Chief Complaint: Asthma Exacerbation History of Present Illness: NAD slight SOB on exertion, but feels a little better Seen by Pulmonary On solumedrol 40 mg Q8H IVP Started on Azithromycin IVPB - Current Medication List Current Medications: Active Medications Acetylcysteine (Mucomyst 20 Oral / Inh Use Only*) 400 mg NEB RBID [facility] Last Admin: 03/20/18 07:48 Dose: 400 mg Albuterol Sulfate (Ventolin 0.083% Nebulizer Soln -) 1 amp NEB Q4H PRN PRN Reason: SHORT OF BREATH/WHEEZING Albuterol Sulfate (Ventolin 0.083% Nebulizer Soln -) 1 amp NEB RQID [facility] Last Admin: 03/20/18 07:48 Dose: 1 amp Aspirin (Asa -) 81 mg PO DAILY [facility] Last Admin: 03/20/18 09:20 Dose: 81 mg Enoxaparin Sodium (Lovenox -) 40 mg SQ DAILY [facility] Last Admin: 03/20/18 09:20 Dose: 40 mg Folic Acid (Folic Acid -) 1 mg PO DAILY [facility] Last Admin: 03/20/18 09:20 Dose: 1 mg Gabapentin (Neurontin -) 300 mg PO HS [facility] Last Admin: 03/19/18 21:09 Dose: 300 mg Guaifenesin (Mucinex Dm -) 2 tablet PO BID [facility] Last Admin: 03/20/18 09:28 Dose: 2 tablet HCTZ/Losartan Potassium (Hyzaar -) 2 tab PO DAILY [facility] Last Admin: 03/20/18 09:20 Dose: 2 tab Azithromycin (Zithromax 500mg Ivpb (Pre-Docked)) 500 mg in 250 mls @ 250 mls/ hr IVPB DAILY [facility] Last Admin: 03/20/18 09:21 Dose: 250 mls/hr Insulin Aspart (Novolog Vial Sliding Scale -) 1 vial SQ ACHS [facility]; Protocol Last Admin: 03/20/18 06:29 Dose: 8 units Loratadine (Claritin -) 10 mg PO DAILY [facility] Last Admin: 03/20/18 09:20 Dose: 10 mg Meclizine HCl (Antivert -) 25 mg PO HS PRN PRN Reason: VERTIGO Metformin HCl (Glucophage -) 1,000 mg PO BID@0700,1630 [facility] Last Admin: 03/20/18 06:28 Dose: 1,000 mg Methylprednisolone Sodium Succinate (Solu-Medrol -) 40 mg IVPUSH Q8H-IV [facility] Last Admin: 03/20/18 09:20 Dose: 40 mg Metoprolol Tartrate (Lopressor -) 50 mg PO BID [facility] Last Admin: 03/20/18 09:20 Dose: 50 mg Mirtazapine (Remeron -) 30 mg PO [facility] Last Admin: 03/19/18 21:09 Dose: 30 mg Montelukast Sodium (Singulair -) 10 mg PO [facility] Last Admin: 03/19/18 21:08 Dose: 10 mg Pantoprazole Sodium (Protonix -) 40 mg PO DAILY [facility] Last Admin: 03/20/18 09:20 Dose: 40 mg Rosuvastatin Calcium (Crestor -) 10 mg PO [facility] Last Admin: 03/19/18 21:07 Dose: 10 mg Sitagliptin Phosphate (Januvia -) 100 mg PO DAILY@0700 [facility] Last Admin: 03/20/18 06:28 Dose: 100 mg - Objective Vital Signs: Vital Signs Temperature 97.9 F 03/20/18 07:48 Pulse Rate 62 03/20/18 07:48 Respiratory Rate 20 03/20/18 07:48 Blood Pressure 141/83 03/20/18 07:48 O2 Sat by Pulse Oximetry (%) 92 L 03/19/18 21:00 Constitutional: Yes: Well Nourished, No Distress, Calm Cardiovascular: Yes: Regular Rate and Rhythm Respiratory: Yes: Rales, SOB on Exertion, Wheezes Musculoskeletal: Yes: WNL Extremities: Yes: WNL Edema: No Peripheral Pulses WNL: Yes Neurological: Yes: Alert, Oriented Psychiatric: Yes: Alert, Oriented Labs: CBC, BMP 03/17/18 06:15 03/17/18 06:15 Problem List - Problems (1) Asthma exacerbation Assessment/Plan: -Pulmonary consult -Bronchodilators -Solumedrol 40 mg Q8Hh IVP-taper as patient improves -Mucinex 2 tabs bid -Mucomyst BID -Added Chest PT QID -On Azithromycin IVPB Code(s): J45.901 - UNSPECIFIED ASTHMA WITH (ACUTE) EXACERBATION Qualifiers: Asthma severity: unspecified severity Asthma persistence: unspecified Qualified Code(s): J45.901 - Unspecified asthma with (acute) exacerbation (2) CAD (coronary artery disease) Assessment/Plan: -On statin Aspirin and BB Code(s): I25.10 - ATHSCL HEART DISEASE OF [place] CORONARY ARTERY W/O ANG PCTRS Qualifiers: Coronary Disease-Associated Artery/Lesion type: unspecified vessel or lesion type Associated angina: with unspecified angina (3) Diabetes mellitus Assessment/Plan: -A1c at 8.4 -Diabetic /low sodium diet -Novolog sliding scale -Takes toujeo at home-unsure what dosage -resume Januvia-increase to 100 mg po daily+ metformin 1000 mg po BID-would continue this dosage outpatient upon discharge -[facility] HS -RD consult Code(s): E11.9 - TYPE 2 DIABETES MELLITUS WITHOUT COMPLICATIONS Qualifiers: Diabetes mellitus type: type 2 Diabetes mellitus complication status: with neurologic complications (4) Hypertension Assessment/Plan: -Resumed on Hyzaar-100/25 mg po daily -On Metoprolol Tart 50 mg po bid -mildly elevated, likely 2/2 to solumedrol -Start Amlodipine 5 mg po daily -monitor trend Code(s): I10 - ESSENTIAL (PRIMARY) HYPERTENSION Assessment/Plan see problem list DVT prophylaxis Self ambulatory
--- NOTE | 2018-03-20 11:30 | PN ---
Progress Note (short form) - Note Progress Note: PULMONARY Still with shortness of breath, chest tightness, cough and wheezing. Peak flow done at bedside 260. Vital Signs Period Temp Pulse Resp BP Sys/Mallory Pulse Ox Last 24 Hr 97.9 F-98.2 F 62-76 19-20 141-151/79-86 92-94 Gen: mildly tachypneic with speaking Heart: RRR Lung: bilateral rhonchi, wheezes Abd: soft, nontender Ext: no edema CBC, BMP 03/17/18 06:15 03/17/18 06:15 Active Medications Acetylcysteine (Mucomyst 20 Oral / Inh Use Only*) 400 mg NEB RBID [facility] Last Admin: 03/20/18 07:48 Dose: 400 mg Albuterol Sulfate (Ventolin 0.083% Nebulizer Soln -) 1 amp NEB Q4H PRN PRN Reason: SHORT OF BREATH/WHEEZING Albuterol Sulfate (Ventolin 0.083% Nebulizer Soln -) 1 amp NEB RQID [facility] Last Admin: 03/20/18 07:48 Dose: 1 amp Amlodipine Besylate (Norvasc -) 5 mg PO DAILY [facility] Aspirin (Asa -) 81 mg PO DAILY [facility] Last Admin: 03/20/18 09:20 Dose: 81 mg Enoxaparin Sodium (Lovenox -) 40 mg SQ DAILY [facility] Last Admin: 03/20/18 09:20 Dose: 40 mg Folic Acid (Folic Acid -) 1 mg PO DAILY [facility] Last Admin: 03/20/18 09:20 Dose: 1 mg Gabapentin (Neurontin -) 300 mg PO HS [facility] Last Admin: 03/19/18 21:09 Dose: 300 mg Guaifenesin (Mucinex Dm -) 2 tablet PO BID [facility] Last Admin: 03/20/18 09:28 Dose: 2 tablet HCTZ/Losartan Potassium (Hyzaar -) 2 tab PO DAILY [facility] Last Admin: 03/20/18 09:20 Dose: 2 tab Azithromycin (Zithromax 500mg Ivpb (Pre-Docked)) 500 mg in 250 mls @ 250 mls/ hr IVPB DAILY [facility] Last Admin: 03/20/18 09:21 Dose: 250 mls/hr Insulin Aspart (Novolog Vial Sliding Scale -) 1 vial SQ ACHS [facility]; Protocol Last Admin: 12/06/18 06:29 Dose: 8 units Loratadine (Claritin -) 10 mg PO DAILY [facility] Last Admin: 03/20/18 09:20 Dose: 10 mg Meclizine HCl (Antivert -) 25 mg PO HS PRN PRN Reason: VERTIGO Metformin HCl (Glucophage -) 1,000 mg PO BID@0700,1630 [facility] Last Admin: 03/20/18 06:28 Dose: 1,000 mg Methylprednisolone Sodium Succinate (Solu-Medrol -) 40 mg IVPUSH Q8H-IV [facility] Last Admin: 03/20/18 09:20 Dose: 40 mg Metoprolol Tartrate (Lopressor -) 50 mg PO BID [facility] Last Admin: 03/20/18 09:20 Dose: 50 mg Mirtazapine (Remeron -) 30 mg PO [facility] Last Admin: 03/19/18 21:09 Dose: 30 mg Montelukast Sodium (Singulair -) 10 mg PO [facility] Last Admin: 03/19/18 21:08 Dose: 10 mg Pantoprazole Sodium (Protonix -) 40 mg PO DAILY [facility] Last Admin: 03/20/18 09:20 Dose: 40 mg Rosuvastatin Calcium (Crestor -) 10 mg PO [facility] Last Admin: 03/19/18 21:07 Dose: 10 mg Sitagliptin Phosphate (Januvia -) 100 mg PO DAILY@0700 [facility] Last Admin: 03/20/18 06:28 Dose: 100 mg A/P Acute Asthma Exacerbation CAD HTN DM Hyperlipidemia Lung Nodule - complete course of azithromycin - continue medrol at current dose - inhaled bronchodilators standing and PRN - monitor peak flow - singulair - O2 to keep SpO2 >90% - outpt PFTs - outpt f/u of lung nodule - when ready for discharge should be on maintenance ICS/LABA - DVT prophylaxis Problem List - Problems (1) Asthma exacerbation Code(s): J45.901 - UNSPECIFIED ASTHMA WITH (ACUTE) EXACERBATION Qualifiers: Asthma severity: unspecified severity Asthma persistence: unspecified Qualified Code(s): J45.901 - Unspecified asthma with (acute) exacerbation (2) CAD (coronary artery disease) Code(s): I25.10 - ATHSCL HEART DISEASE OF [place] CORONARY ARTERY W/O ANG PCTRS Qualifiers: Coronary Disease-Associated Artery/Lesion type: unspecified vessel or lesion type Associated angina: with unspecified angina (3) Diabetes mellitus Code(s): E11.9 - TYPE 2 DIABETES MELLITUS WITHOUT COMPLICATIONS Qualifiers: Diabetes mellitus type: type 2 Diabetes mellitus complication status: with neurologic complications (4) GERD (gastroesophageal reflux disease) Code(s): K21.9 - GASTRO-ESOPHAGEAL REFLUX DISEASE WITHOUT ESOPHAGITIS Qualifiers: Esophagitis presence: esophagitis presence not specified Qualified Code(s) : K21.9 - Gastro-esophageal reflux disease without esophagitis (5) Hypertension Code(s): I10 - ESSENTIAL (PRIMARY) HYPERTENSION
[2018-03-20] MEDS: amLODIPine BESYLATE 5 MG TABLET (FP) PO SCH (11:37)
[2018-03-20] MEDS ORDERED: INSULIN (NOVOLOG) ASPART 100 UNITS/ML 10ML VIAL ONE ×2 (11:37→15:43)
[2018-03-20] MEDS: ALBUTEROL SO4 2.5/IPRATROPIUM 0.5 INH SOL 3 ML VIAL.NEB. NEB SCH ×3 (12:42→20:23)
[2018-03-20] MEDS: ALBUTEROL SO4 0.083% IH SOL 2.5 MG/3 ML VIAL.NEB. NEB PRN (20:23)
[2018-03-20] MEDS ORDERED: SODIUM CHLORIDE 1,000 ML IV SCH (21:15)
[2018-03-20] MEDS ORDERED: INSULIN (NOVOLOG) ASPART 100 UNITS/ML 10ML VIAL SQ ONE (21:17)
[2018-03-20] MEDS ORDERED: PT OWN MED DRAWER 7, Y5N ONE (21:43)
[2018-03-20] MEDS: MONTELUKAST NA 10 MG TABLET PO SCH (21:52)
[2018-03-20] MEDS: ROSUVASTATIN CA 10 MG TABLET (FP) PO SCH (21:52)
[2018-03-20] MEDS: MIRTAZAPINE 30 MG TABLET (FP) PO SCH (21:52)
[2018-03-20] MEDS: GABAPENTIN 300 MG CAPSULE (FP) PO SCH (21:52)
[2018-03-20 23:15] LABS: ANION GAP 16 MMOL/L (8-16); BLOOD UREA NITROGEN 40 mg/dL (7-18); CALCIUM 9.6 mg/dL (8.5-10.1); CHLORIDE 100 mmol/L (98-107); CO2 20 mmol/L (21-32); CREATININE 1.5 mg/dL (0.55-1.3); POTASSIUM 4.4 mmol/L (3.5-5.1); SODIUM 135 mmol/L (136-145)
[2018-03-20 23:21] LABS: GLUCOSE,RANDOM 374 mg/dL (74-106)
[2018-03-20 23:39] LABS: ACETONE SERUM NEGATIVE (NEGATIVE)
[2018-03-20] MEDS ORDERED: INSULIN (NOVOLOG) ASPART 100 UNITS/ML 10ML VIAL SQ STA (23:46)
[2018-03-21] MEDS ORDERED: INSULIN (NOVOLOG) ASPART 100 UNITS/ML 10ML VIAL SQ ONE (01:04)
[2018-03-21] MEDS: methylPREDNISolone NA SUCC 40 MG/1 ML VIAL IVPUSH SCH ×3 (02:44→17:12)
[2018-03-21] MEDS: sitaGLIPtin PHOSPHATE 100 MG TABLET (FP) PO SCH (06:09)
[2018-03-21] MEDS: metFORMIN HCL 500 MG TABLET (FP) PO SCH ×2 (06:09→17:12)
[2018-03-21] MEDS: INSULIN SLIDING SCALE (NOVOLOG) 1 VIAL SQ SCH ×3 (06:11→17:14)
[2018-03-21] MEDS: ALBUTEROL SO4 0.083% IH SOL 2.5 MG/3 ML VIAL.NEB. NEB PRN (07:00)
[2018-03-21] MEDS: ACETYLCYSTEINE 20% 200MG/ML 4 ML VIAL *FOR ORAL / INH USE ONLY NEB SCH (07:00)
[2018-03-21] MEDS: ALBUTEROL SO4 2.5/IPRATROPIUM 0.5 INH SOL 3 ML VIAL.NEB. NEB SCH ×3 (07:21→15:08)
[2018-03-21 08:14] LABS: BASO % 0.4 % (0-2.0); HEMATOCRIT 37.1 % (32.4-45.2); HEMOGLOBIN 11.6 GM/dL (10.7-15.3); LYMPH % 17.5 % (8-40); MCH 24.2 pg (25.7-33.7); MCHC 31.2 g/dl (32.0-36.0); MEAN CELL VOLUME 77.5 fl (80-96); MEAN PLT VOLUME 7.1 fl (7.5-11.1); MONO % 6.6 % (3.8-10.2); NEUT % 75.5 % (42.8-82.8); PLATELET COUNT 414 K/MM3 (134-434); RBC 4.79 M/mm3 (3.60-5.2); RDW 15.6 % (11.6-15.6); WHITE BLOOD COUNT 16.8 K/mm3 (4.0-10.0)
[2018-03-21 08:30] LABS: ALBUMIN 2.9 g/dl (3.4-5.0); ALK PHOS 59 U/L (45-117); ANION GAP 10 MMOL/L (8-16); BILIRUBIN,TOTAL 0.3 mg/dL (0.2-1); BLOOD UREA NITROGEN 36 mg/dL (7-18); CALCIUM 8.8 mg/dL (8.5-10.1); CHLORIDE 106 mmol/L (98-107); CO2 23 mmol/L (21-32); GLUCOSE,RANDOM 168 mg/dL (74-106); SGOT/AST 5 U/L (15-37); SGPT/ALT 27 U/L (13-61); SODIUM 139 mmol/L (136-145); TOT PROT 6.6 g/dl (6.4-8.2)
[2018-03-21] MEDS: guaiFENesin/D-METHORPHAN HB 1 EACH TAB.ER.12H PO SCH (10:00)
[2018-03-21] MEDS ORDERED: PT OWN MED DRAWER 7, Y5N ONE (10:32)
--- NOTE | 2018-03-21 10:44 | PN ---
Progress Note, Physician Chief Complaint: Asthma Exacerbation History of Present Illness: NAD slight SOB on exertion, but feels a little better Seen by Pulmonary On solumedrol 40 mg Q8H IVP On Azithromycin IVPB - Current Medication List Current Medications: Active Medications Acetylcysteine (Mucomyst 20 Oral / Inh Use Only*) 400 mg NEB RBID [facility] Last Admin: 03/21/18 07:00 Dose: 400 mg Albuterol Sulfate (Ventolin 0.083% Nebulizer Soln -) 1 amp NEB Q4H PRN PRN Reason: SHORT OF BREATH/WHEEZING Last Admin: 03/21/18 07:00 Dose: 1 amp Albuterol/Ipratropium (Duoneb -) 1 amp NEB RQID [facility] Last Admin: 03/21/18 07:21 Dose: Not Given Amlodipine Besylate (Norvasc -) 5 mg PO DAILY [facility] Last Admin: 03/20/18 11:37 Dose: 5 mg Aspirin (Asa -) 81 mg PO DAILY [facility] Last Admin: 03/20/18 09:20 Dose: 81 mg Enoxaparin Sodium (Lovenox -) 40 mg SQ DAILY [facility] Last Admin: 03/20/18 09:20 Dose: 40 mg Folic Acid (Folic Acid -) 1 mg PO DAILY [facility] Last Admin: 03/20/18 09:20 Dose: 1 mg Gabapentin (Neurontin -) 300 mg PO HS [facility] Last Admin: 03/20/18 21:52 Dose: 300 mg Guaifenesin (Mucinex Dm -) 2 tablet PO BID [facility] Last Admin: 03/20/18 21:52 Dose: 2 tablet HCTZ/Losartan Potassium (Hyzaar -) 2 tab PO DAILY [facility] Last Admin: 03/20/18 09:20 Dose: 2 tab Azithromycin (Zithromax 500mg Ivpb (Pre-Docked)) 500 mg in 250 mls @ 250 mls/ hr IVPB DAILY [facility] Last Admin: 03/20/18 09:21 Dose: 250 mls/hr Sodium Chloride (Normal Saline -) 1,000 mls @ 75 mls/hr IV ASDIR [facility] Last Admin: 03/20/18 21:50 Dose: 75 mls/hr Insulin Aspart (Novolog Vial Sliding Scale -) 1 vial SQ ACHS [facility]; Protocol Last Admin: 03/21/18 06:11 Dose: 4 units Loratadine (Claritin -) 10 mg PO DAILY [facility] Last Admin: 03/20/18 09:20 Dose: 10 mg Meclizine HCl (Antivert -) 25 mg PO HS PRN PRN Reason: VERTIGO Metformin HCl (Glucophage -) 1,000 mg PO BID@0700,1630 [facility] Last Admin: 03/21/18 06:09 Dose: 1,000 mg Methylprednisolone Sodium Succinate (Solu-Medrol -) 40 mg IVPUSH Q8H-IV [facility] Last Admin: 03/21/18 02:44 Dose: Not Given Metoprolol Tartrate (Lopressor -) 50 mg PO BID [facility] Last Admin: 03/20/18 21:52 Dose: 50 mg Mirtazapine (Remeron -) 30 mg PO [facility] Last Admin: 03/20/18 21:52 Dose: 30 mg Montelukast Sodium (Singulair -) 10 mg PO [facility] Last Admin: 03/20/18 21:52 Dose: 10 mg Pantoprazole Sodium (Protonix -) 40 mg PO DAILY [facility] Last Admin: 03/20/18 09:20 Dose: 40 mg Rosuvastatin Calcium (Crestor -) 10 mg PO [facility] Last Admin: 03/20/18 21:52 Dose: 10 mg Sitagliptin Phosphate (Januvia -) 100 mg PO DAILY@0700 [facility] Last Admin: 03/21/18 06:09 Dose: 100 mg - Objective Vital Signs: Vital Signs Temperature 98.2 F 03/21/18 06:00 Pulse Rate 64 03/21/18 06:00 Respiratory Rate 18 03/21/18 08:37 Blood Pressure 133/77 03/21/18 06:00 O2 Sat by Pulse Oximetry (%) 92 L 03/21/18 08:37 Constitutional: Yes: Well Nourished, No Distress, Calm Cardiovascular: Yes: Regular Rate and Rhythm Respiratory: Yes: SOB on Exertion, Wheezes Gastrointestinal: Yes: Normal Bowel Sounds, Soft Musculoskeletal: Yes: WNL Extremities: Yes: WNL Edema: No Peripheral Pulses WNL: Yes Neurological: Yes: Alert, Oriented Psychiatric: Yes: Alert, Oriented Labs: CBC, BMP 03/21/18 07:30 03/21/18 07:30 Problem List - Problems (1) Asthma exacerbation Assessment/Plan: -Pulmonary consult -Bronchodilators -Solumedrol 40 mg Q8Hh IVP-taper as patient improves -Mucinex 2 tabs bid -Mucomyst BID -Added Chest PT QID -On Azithromycin IVPB Code(s): J45.901 - UNSPECIFIED ASTHMA WITH (ACUTE) EXACERBATION Qualifiers: Asthma severity: unspecified severity Asthma persistence: unspecified Qualified Code(s): J45.901 - Unspecified asthma with (acute) exacerbation (2) CAD (coronary artery disease) Assessment/Plan: -On statin Aspirin and BB Code(s): I25.10 - ATHSCL HEART DISEASE OF [place] CORONARY ARTERY W/O ANG PCTRS Qualifiers: Coronary Disease-Associated Artery/Lesion type: unspecified vessel or lesion type Associated angina: with unspecified angina (3) Diabetes mellitus Assessment/Plan: -A1c at 8.4 -Diabetic /low sodium diet -Novolog sliding scale -Takes toujeo at home-unsure what dosage -resume Januvia-increase to 100 mg po daily+ metformin 1000 mg po BID-would continue this dosage outpatient upon discharge -[facility] -RD consult Code(s): E11.9 - TYPE 2 DIABETES MELLITUS WITHOUT COMPLICATIONS Qualifiers: Diabetes mellitus type: type 2 Diabetes mellitus complication status: with neurologic complications (4) Hypertension Assessment/Plan: -Resumed on Hyzaar-100/25 mg po daily -On Metoprolol Tart 50 mg po bid -mildly elevated, likely 2/2 to solumedrol -Start Amlodipine 5 mg po daily -monitor trend Code(s): I10 - ESSENTIAL (PRIMARY) HYPERTENSION Assessment/Plan see problem list DVT prophylaxis Self ambulatory
[2018-03-21] MEDS: AZITHROMYCIN IVPB 500 MG/250 ML BAG IVPB SCH (10:55)
[2018-03-21] MEDS: LORATADINE 10 MG TABLET PO SCH (10:56)
[2018-03-21] MEDS: PANTOPRAZOLE 40 MG TABLET (FP) PO SCH (10:56)
[2018-03-21] MEDS: ENOXAPARIN NA (PORCINE) 40 MG/0.4 ML DISP.SYRIN SQ SCH (10:56)
[2018-03-21] MEDS: amLODIPine BESYLATE 5 MG TABLET (FP) PO SCH (10:56)
[2018-03-21] MEDS: METOPROLOL TARTRATE 50 MG TABLET (FP) PO SCH (10:56)
[2018-03-21] MEDS: FOLIC ACID 1 MG TABLET (FP) PO SCH (10:56)
[2018-03-21] MEDS: LOSARTAN 50MG/HCTZ 12.5MG 1 TAB (FP) PO SCH (10:56)
[2018-03-21] MEDS: ASPIRIN 81 MG CHEWABLE TABLETS PO SCH (10:59)
[2018-03-21 11:22] LABS: ANISOCYTOSIS 3+; MACROCYTOSIS 0; PLATELET ESTIMATE NORMAL
--- NOTE | 2018-03-21 13:49 | PN ---
Progress Note (short form) - Note Progress Note: PULMONARY Feels better and wants to go home Gen: nad Heart: RRR Lung: clear Abd: soft, nontender Ext: no edema labs/meds/notes/images reviewed A/P Acute Asthma Exacerbation resolved CAD HTN DM Hyperlipidemia Lung Nodule - complete course of azithromycin - change to oral steroids and taper as an outpatient - inhaled bronchodilators - singulair - outpt PFTs - outpt f/u of lung nodule - maintenance ICS/LABA - no objection to continuing treatment as an outpatient Juan MADISON MD
[2018-03-21 14:32] VITALS: BP 132/60; PULSE 69; TEMP 97.4
--- NOTE | 2018-03-21 14:44 | DS ---
Physical Examination Vital Signs: Vital Signs Temperature 97.4 F L 03/21/18 14:30 Pulse Rate 69 03/21/18 14:30 Respiratory Rate 20 03/21/18 14:30 Blood Pressure 132/60 03/21/18 14:30 O2 Sat by Pulse Oximetry (%) 92 L 03/21/18 08:37 Findings/Remarks: 67 year old female with a PMH significant for HTN, HLD, non-obstructive CAD, asthma, NIDDM, and GERD. Patient presents today to the ED with a complaint of SOB. The patient reports that she presented to [facility] 5 days ago for an asthma exacerbation and was treated with nebulizers and prednisone. She has been on prednisone since that time, and has been using her home nebulizer, with minimal improvement. She reports a non-productive cough, but otherwise denies fevers, chills, chest pain, nausea, vomiting, abdominal pain, or changes with urination or bowel movements. Constitutional: Yes: Well Nourished, No Distress, Calm Cardiovascular: Yes: Regular Rate and Rhythm Respiratory: Yes: Wheezes Musculoskeletal: Yes: WNL Extremities: Yes: WNL Edema: No Peripheral Pulses WNL: Yes Neurological: Yes: Alert, Oriented Psychiatric: Yes: Alert, Oriented Labs: CBC, BMP 03/21/18 07:30 12 07:30 Discharge Summary Reason For Visit: ASTHMA WITH ACUTE EXACERBATION Current Active Problems Asthma exacerbation (Acute) Hospital Course: Laboratory Last Values WBC 16.8 K/mm3 (4.0-10.0) H 03/21/18 07:30 RBC 4.79 M/mm3 (3.60-5.2) 03/21/18 07:30 Hgb 11.6 GM/dL (10.7-15.3) 03/21/18 07:30 Hct 37.1 % (32.4-45.2) D 03/21/18 07:30 MCV 77.5 fl (80-96) L 03/21/18 07:30 MCH 24.2 pg (25.7-33.7) L 03/21/18 07:30 MCHC 31.2 g/dl (32.0-36.0) L 03/21/18 07:30 RDW 15.6 % (11.6-15.6) 03/21/18 07:30 Plt Count 414 K/MM3 (134-434) D 03/21/18 07:30 MPV 7.1 fl (7.5-11.1) L 03/21/18 07:30 Absolute Neuts (auto) 12.7 K/mm3 (1.5-8.0) H 03/21/18 07:30 Neutrophils % 75.5 % (42.8-82.8) 03/21/18 07:30 Neutrophils % (Manual) 73.4 % (42.8-82.8) 03/21/18 07:30 Band Neutrophils % 0.0 % 03/21/18 07:30 Lymphocytes % 17.5 % (8-40) 03/21/18 07:30 Lymphocytes % (Manual) 17.4 % (8-40) 03/21/18 07:30 Monocytes % 6.6 % (3.8-10.2) 03/21/18 07:30 Monocytes % (Manual) 8 % (3.8-10.2) 03/21/18 07:30 Eosinophils % 0.0 % (0-4.5) 03/21/18 07:30 Eosinophils % (Manual) 0.0 % (0-4.5) 03/21/18 07:30 Basophils % 0.4 % (0-2.0) 03/21/18 07:30 Basophils % (Manual) 0.0 % (0-2.0) 03/21/18 07:30 Myelocytes % (Man) 1 % (0-2) 03/21/18 07:30 Promyelocytes % (Man) 0 % (0-2) 03/21/18 07:30 Blast Cells % (Manual) 0 % (0-0) 03/21/18 07:30 Nucleated RBC % 0 % (0-0) 03/21/18 07:30 Metamyelocytes 0 % (0-2) 03/21/18 07:30 Hypochromia 0 03/21/18 07:30 Platelet Estimate Normal 03/21/18 07:30 Polychromasia 0 03/21/18 07:30 Poikilocytosis 0 03/21/18 07:30 Anisocytosis 3+ 03/21/18 07:30 Microcytosis 3+ 03/21/18 07:30 Macrocytosis 0 03/21/18 07:30 Sodium 139 mmol/L (136-145) 03/21/18 07:30 Potassium 4.0 mmol/L (3.5-5.1) 03/21/18 07:30 Chloride 106 mmol/L (98-107) 03/21/18 07:30 Carbon Dioxide 23 mmol/L (21-32) 03/21/18 07:30 Anion Gap 10 MMOL/L (8-16) 03/21/18 07:30 BUN 36 mg/dL (7-18) H 03/21/18 07:30 Creatinine 1.0 mg/dL (0.55-1.3) 03/21/18 07:30 Creat Clearance w eGFR 55.47 (>60) 03/21/18 07:30 POC Glucometer 152 UNITS (80-120) 03/21/18 11:55 Random Glucose 168 mg/dL (74-106) H 03/21/18 07:30 Hemoglobin A1c % 8.4 % (4.2-6.3) H 03/17/18 06:15 Calcium 8.8 mg/dL (8.5-10.1) 03/21/18 07:30 Magnesium 2.6 mg/dL (1.8-2.4) H 03/17/18 06:15 Total Bilirubin 0.3 mg/dL (0.2-1) 03/21/18 07:30 AST 5 U/L (15-37) L 03/21/18 07:30 ALT 27 U/L (13-61) 03/21/18 07:30 Alkaline Phosphatase 59 U/L (45-117) 03/21/18 07:30 Creatine Kinase 211 IU/L (26-192) H 03/16/18 15:30 Creatine Kinase Index 0.8 % (0.0-5.0) 03/16/18 15:30 CK-MB (CK-2) 1.7 ng/mL (0.5-3.6) 03/16/18 15:30 Troponin I < 0.02 ng/ml (0.00-0.05) 03/16/18 15:30 Total Protein 6.6 g/dl (6.4-8.2) 03/21/18 07:30 Albumin 2.9 g/dl (3.4-5.0) L 03/21/18 07:30 Urine Acetone Negative 03/20/18 23:50 Acetone, Qual Negative (NEGATIVE) L 03/20/18 22:00 Condition: Stable - Instructions Diet, Activity, Other Instructions: Take Azithromycin 500 mg daily for 5 days D/C Lorrie D/C Jaylen D/C Sanjuanita Start: 1. Metformin 1000 mg 2 x day (for Diabetes) 2. Januvia 100 mg daily in AM (For Diabetes) 3. Monteleukast 10 mg at bedtime (for Asthma) 4. Symbicort 160/4.5 mg , 1 inhalation 2 x day (For Asthma) 5. Amlodipine 5 mg 1 tab daily in AM (For High Blood Pressure) 6. Prednisone tapering dose as follows: 40 mg x 3 days, then 30 mg x 3 days, then 20 mg x 3 days, then 10 mg x 3 days, then 5 mg x 3 days, then stop Also, Follow up with your PCP and pulmonology within 2 weeks. Referrals: Gisela Woodson MD [Primary Care Provider] - Andres Freedman MD, MD [Staff Physician] - Disposition: HOME - Home Medications Comprehensive Discharge Medication List: Ambulatory Orders Albuterol Sulfate Inhaler - [Ventolin HFA Inhaler -] 1 - 2 inh PO QID 07/21/15 Aspirin [ASA -] 81 mg PO DAILY 07/21/15 Loratadine [Claritin -] 10 mg PO DAILY #30 tablet 12/07/15 Folic Acid 1 mg PO DAILY 12/10/16 Metoclopramide HCl 5 mg PO PRN PRN 12/10/16 Omeprazole 40 mg PO DAILY 12/10/16 Metoprolol Tartrate [Lopressor -] 50 mg PO BID 01/05/18 Gabapentin [Neurontin] 300 mg PO HS 03/16/18 Icosapent Ethyl [Vascepa] 1 gm PO BID 03/16/18 Losartan/Hydrochlorothiazide [Losartan-Hctz 100-25 mg Tab] 1 each PO DAILY 03/16 Meclizine HCl 25 mg PO HS PRN 03/16/18 Meloxicam 5 mg PO TID 03/16/18 Mirtazapine 30 mg PO HS 03/16/18 Rosuvastatin Calcium [Crestor] 10 mg PO DAILY 03/16/18 Amlodipine Besylate [Norvasc -] 5 mg PO DAILY #30 tablet 03/21/18 Azithromycin 500 mg PO DAILY #5 tablet 03/21/18 Budesonide/Formeterol Fumarate [SYMBICORT 160/4.5mcg -] 1 inh PO BID #1 cannister 03/21/18 Guaifenesin Dm [Mucinex Dm -] 2 tablet PO BID #20 tab.er.12h 03/21/18 Montelukast Na [Singulair -] 10 mg PO HS #30 tablet 03/21/18 Prednisone 10 mg PO ASDIR #32 tablet 03/21/18 Sitagliptin Phosphate [Januvia -] 100 mg PO DAILY@0700 #30 ud 03/21/18 metFORMIN HCL [Glucophage -] 1,000 mg PO BID@0700,1630 #60 tablet 03/21/18
== END 2018-03-21 17:43 | disposition home or self-care (01) | DRG 203 ==
LOC: JER 14:25 → JERBED 17:10 → J6S 21:54
PROVIDERS: ADMIT Family Medicine; ATTEND Family Medicine
DX: J45.901 Unspecified asthma with (acute) exacerbation (principal); I10 Essential (primary) hypertension; E78.5 Hyperlipidemia, unspecified; E11.9 Type 2 diabetes mellitus without complications; I25.10 Atherosclerotic heart disease of native coronary artery without angina pectoris; K21.9 Gastro-esophageal reflux disease without esophagitis; K76.0 Fatty (change of) liver, not elsewhere classified; F41.9 Anxiety disorder, unspecified; R91.1 Solitary pulmonary nodule; Z88.0 Allergy status to penicillin
CPT/HCPCS: 36415; 71045-TC-FY; 80048; 80053; 82009; 82550; 82553; 82962; 83036; 83735; 84484; 85025; 93005; 93010; 94150; 94640; 99285-25; J7030

== ENCOUNTER 2018-03-22 15:12 | Inpatient (IN) | payer OTHER ==
--- NOTE | 2018-03-22 15:35 | PDOC ---
History of Present Illness - General Chief Complaint: Pain, Acute Stated Complaint: CHEST PAIN/ABD PAIN Time Seen by Provider: 03/22/18 15:22 History Source: Patient, Family Exam Limitations: Language Barrier - History of Present Illness Initial Comments: 03/22/18 15:35 Pt is a 67yo F with PMH of CAD, DM, HTN, HLD, Asthma, Fatty Liver presenting to ED with complaints of back pain that started this morning. Pt said she was lying in bed when she had a sudden onset of back pain, mostly on the R that radiates to her abdomen, pelvis and chest. She states that pain feels like a squeezing pain that has been constant 11/22 not alleviated or relieved by anything. She denies nausea, vomiting, fevers, chills, weakness, numbness, tingling, chest pain, SOB, cough, diarrhea, constipation, blood in stools, urinary symptoms. She was recently discharged for asthma exacerbation. PMD: [place] PMH: see hpi PSH: none Meds: see med rec Allergies; PCN (rash), morphine (rash) Past History - Past Medical History Allergies/Adverse Reactions: Allergies Allergy/AdvReac Type Severity Reaction Status Date / Time Penicillins Allergy Intermediate Rash Verified 03/16/18 14:30 morphine Allergy Mild Rash Uncoded 03/16/18 14:30 Home Medications: Ambulatory Orders Albuterol Sulfate Inhaler - [Ventolin HFA Inhaler -] 1 - 2 inh PO QID 07/21/15 Aspirin [ASA -] 81 mg PO DAILY 07/21/15 Loratadine [Claritin -] 10 mg PO DAILY #30 tablet 12/07/15 Folic Acid 1 mg PO DAILY 12/10/16 Metoclopramide HCl 5 mg PO PRN PRN 12/10/16 Omeprazole 40 mg PO DAILY 12/10/16 Metoprolol Tartrate [Lopressor -] 50 mg PO BID 01/05/18 Gabapentin [Neurontin] 300 mg PO HS 03/16/18 Icosapent Ethyl [Vascepa] 1 gm PO BID 03/16/18 Losartan/Hydrochlorothiazide [Losartan-Hctz 100-25 mg Tab] 1 each PO DAILY 03/16 Meclizine HCl 25 mg PO HS PRN 03/16/18 Meloxicam 5 mg PO TID 03/16/18 Mirtazapine 30 mg PO HS 03/16/18 Rosuvastatin Calcium [Crestor] 10 mg PO DAILY 03/16/18 Amlodipine Besylate [Norvasc -] 5 mg PO DAILY #30 tablet 03/21/18 Azithromycin 500 mg PO DAILY #5 tablet 03/21/18 Budesonide/Formeterol Fumarate [SYMBICORT 160/4.5mcg -] 1 inh PO BID #1 cannister 03/21/18 Guaifenesin Dm [Mucinex Dm -] 2 tablet PO BID #20 tab.er.12h 03/21/18 Montelukast Na [Singulair -] 10 mg PO HS #30 tablet 03/21/18 Prednisone 10 mg PO ASDIR #32 tablet 03/21/18 Sitagliptin Phosphate [Januvia -] 100 mg PO DAILY@0700 #30 ud 03/21/18 metFORMIN HCL [Glucophage -] 1,000 mg PO BID@0700,1630 #60 tablet 03/21/18 Anemia: No Asthma: Yes Cancer: No Cardiac Disorders: Yes (palpitations, CAD) CVA: No COPD: No CHF: No Dementia: No Diabetes: Yes GI Disorders: Yes (GERD) Disorders: Yes (BLADDER PROBLEMS) HTN: Yes Hypercholesterolemia: Yes Liver Disease: Yes (INFLAMMED LIVER/ FATTY LIVER) Seizures: No Thyroid Disease: No - Immunization History Immunization Up to Date: Yes - Suicide/Smoking/Psychosocial Hx Smoking Status: No Smoking History: Unknown if ever smoked Have you smoked in the past 12 months: No Number of Cigarettes Smoked Daily: 0 Hx Alcohol Use: No Drug/Substance Use Hx: No Substance Use Type: Alcohol Hx Substance Use Treatment: No Review of Systems - Review of Systems Constitutional: No: Chills, Fever HEENTM: No: Symptoms Reported Respiratory: No: Symptoms reported Cardiac (ROS): No: Symptoms Reported ABD/GI: Yes: See HPI, Abdominal cramping. No: Blood Streaked Bowels, Constipated, Diarrhea, Nausea, Rectal Bleeding, Vomiting, Tarry Stools : Yes: See HPI, Flank Pain. No: Burning, Dysuria, Hematuria, Incontinence Musculoskeletal: Yes: See HPI Integumentary: No: Symptoms Reported Neurological: No: Symptoms reported *Physical Exam - Vital Signs Last Vital Signs Temp Pulse Resp BP Pulse Ox 97.1 F L 78 16 168/96 96 03/22/18 15:23 12 15:23 03/22/18 15:23 03/22/18 15:23 03/22/18 15:23 - Physical Exam General Appearance: Yes: Nourished, Appropriately Dressed, Moderate Distress HEENT: positive: EOMI, LILLIE, Normal ENT Inspection Neck: positive: Trachea midline, Supple. negative: Lymphadenopathy (R), Lymphadenopathy (L) Respiratory/Chest: positive: Lungs Clear, Normal Breath Sounds. negative: Crackles, Rales, Rhonchi Cardiovascular: positive: Regular Rhythm, Regular Rate, S1, S2. negative: Edema , JVD Vascular Pulses: Carotid (R): 2+, Carotid (L): 2+, Dorsalis-Pedis (R): 2+, Doralis-Pedis (L): 2+ Gastrointestinal/Abdominal: positive: Normal Bowel Sounds, Soft, Tenderness (RUQ , RLQ, epigastric negative rosving, negative psoas). negative: Distended, Guarding, Rebound, Hernia, Mass Musculoskeletal: positive: CVA Tenderness (R). negative: CVA Tenderness (L), Vertebral Tenderness Extremity: positive: Normal Capillary Refill. 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 NML intact, Fully Oriented, Alert, Normal Mood/ Affect, Normal Response, Motor Strength 5/5 Moderate Sedation - Procedure Monitoring Vital Signs: Procedure Monitoring Vital Signs Temperature 97.1 F L 03/22/18 15:23 Pulse Rate 78 03/22/18 15:23 Respiratory Rate 16 03/22/18 15:23 Blood Pressure 168/96 03/22/18 15:23 O2 Sat by Pulse Oximetry (%) 96 03/22/18 15:23 ED Treatment Course - LABORATORY CBC & Chemistry Diagram: 03/22/18 16:36 03/22/18 16:36 Medical Decision Making - Medical Decision Making 03/22/18 15:42 Pt is a 67yo F with PMH of CAD, DM, HTN, HLD, Asthma, Fatty Liver presenting to ED with complaints of back pain that started this morning. Pt said she was lying in bed when she had a sudden onset of back pain, mostly on the R that radiates to her abdomen, pelvis and chest. She states that pain feels like a squeezing pain that has been constant 8/10 not alleviated or relieved by anything. She denies nausea, vomiting, fevers, chills, weakness, numbness, tingling, chest pain, SOB, cough, diarrhea, constipation, blood in stools, urinary symptoms. She was recently discharged for asthma exacerbation. Vitals: wnl PE: R CVA tenderness, RUQ>epigastric>RLQ. Negative psoas and negative rosvings. DDx: cholecystitis, pancretitis, appendicitis, nephrolithiasis, pyelonephritis, AAA, dissection, vascular, autoimmune, infectious process basic labs ordered +trop, UA, lipase. IVF, Tylenol and Dilaudid. Labs show WBC at 21. UA pending. PT going to CT. Signed out to Dr. Kapadia *DC/Admit/Observation/Transfer Diagnosis at time of Disposition: Flank pain Abdominal pain Qualifiers: Abdominal location: unspecified location Qualified Code(s): R10.9 - Unspecified abdominal pain - Referrals Referrals: Gisela Woodson MD [Staff Physician] - - Patient Instructions - Post Discharge Activity
[2018-03-22] MEDS ORDERED: morphine CARPU-JECT 4 MG/1 ML DISP.SYRIN IVPUSH ONE (15:37)
[2018-03-22] MEDS ORDERED: SODIUM CHLORIDE 1,000 ML IV STA (16:12)
[2018-03-22] MEDS ORDERED: ACETAMINOPHEN 1000 MG/100 ML VIAL (NON FORMULARY) IVPB ONE (16:12)
[2018-03-22] MEDS ORDERED: HYDROmorphone HCl 2 MG/ML VIAL ONE ×2 (16:37→21:48)
[2018-03-22] MEDS ORDERED: HYDROmorphone HCL CARPU-JECT 2 MG/1 ML DISP.SYRIN IVPB ONE ×2 (16:39→21:12)
[2018-03-22 17:12] LABS: BASO % 0.1 % (0-2.0); EOS % 0.3 % (0-4.5); HEMATOCRIT 40.9 % (32.4-45.2); HEMOGLOBIN 13.5 GM/dL (10.7-15.3); MCH 25.3 pg (25.7-33.7); MEAN CELL VOLUME 76.6 fl (80-96); MEAN PLT VOLUME 7.1 fl (7.5-11.1); MONO % 7.1 % (3.8-10.2); NEUT % 68.5 % (42.8-82.8); PLATELET COUNT 477 K/MM3 (134-434); RBC 5.34 M/mm3 (3.60-5.2); WHITE BLOOD COUNT 21.5 K/mm3 (4.0-10.0)
[2018-03-22] MEDS ORDERED: ACETAMINOPHEN INJECTION 100 ML IVPB ONE (17:19)
[2018-03-22 18:00] LABS: ALK PHOS 69 U/L (45-117); BLOOD UREA NITROGEN 31 mg/dL (7-18); CALCIUM 9.2 mg/dL (8.5-10.1); GLUCOSE,RANDOM 127 mg/dL (74-106)
[2018-03-22 18:01] LABS: ALBUMIN 3.5 g/dl (3.4-5.0); ANION GAP 11 MMOL/L (8-16); BILIRUBIN,TOTAL 0.4 mg/dL (0.2-1); CHLORIDE 102 mmol/L (98-107); CO2 26 mmol/L (21-32); CREATININE 0.9 mg/dL (0.55-1.3); POTASSIUM 3.9 mmol/L (3.5-5.1); SGOT/AST 10 U/L (15-37); SGPT/ALT 32 U/L (13-61); SODIUM 139 mmol/L (136-145); TOT PROT 7.5 g/dl (6.4-8.2)
[2018-03-22 18:53] LABS: PLATELET ESTIMATE ADEQUATE
--- NOTE | 2018-03-22 19:08 | PDOC ---
*Physical Exam - Vital Signs Last Vital Signs Temp Pulse Resp BP Pulse Ox 97.1 F L 78 16 168/96 96 03/22/18 15:23 03/22/18 15:23 03/22/18 15:23 03/22/18 15:23 03/22/18 15:23 ED Treatment Course - LABORATORY CBC & Chemistry Diagram: 03/22/18 16:36 03/22/18 16:36 - ADDITIONAL ORDERS Additional order review: Laboratory Results 03/22/18 03/22/18 03/22/18 16:36 16:36 16:36 Sodium 139 Potassium 3.9 Chloride 102 Carbon Dioxide 26 Anion Gap 11 BUN 31 H Creatinine 0.9 Creat Clearance w eGFR > 60 Random Glucose 127 H Calcium 9.2 Total Bilirubin 0.4 AST 10 L ALT 32 Alkaline Phosphatase 69 Troponin I < 0.02 Total Protein 7.5 Albumin 3.5 Lipase 330 03/22/18 16:36 RBC 5.34 H MCV 76.6 L MCHC 33.0 RDW 16.0 H MPV 7.1 L Neutrophils % 68.5 Lymphocytes % 24.0 D Monocytes % 7.1 Eosinophils % 0.3 D Basophils % 0.1 - Medications Given in the ED: ED Medications Discontinued Medications Generic Name Dose Route Start Last Admin Trade Name Freq PRN Reason Stop Dose Admin Acetaminophen 1,000 mg 03/22/18 16:12 03/22/18 16:54 Ofirmev Injection - IVPB 03/22/18 16:13 1,000 mg ONCE ONE Administration Hydromorphone HCl 1 mg 03/22/18 16:39 03/22/18 16:53 Dilaudid Injection - IVPB 03/22/18 16:40 1 mg ONCE ONE Administration Sodium Chloride 1,000 mls @ 1,000 mls/hr 03/22/18 16:12 03/22/18 16:54 Normal Saline - IV 03/22/18 17:11 1,000 mls/hr ASDIR STA Administration Morphine Sulfate 4 mg 03/22/18 15:37 03/22/18 15:59 Morphine Injection - IVPUSH 03/22/18 15:38 Not Given ONCE ONE Oxycodone/Acetaminophen 1 combo 03/22/18 16:12 03/22/18 16:53 Percocet 5/325 - PO 03/22/18 16:13 Not Given ONCE ONE Medical Decision Making - Medical Decision Making 03/22/18 19:09 Danita Jerez is a 67yo woman with a PMH of CAD, DM, HTN, HLD, asthma (recent admission for exacerbation), and fatty liver who presented reporting right-sided , 8/10 squeezing back pain that radiates to the abdomen. - Vitals WNL in ED - Recieved IV tylenol and dilaudid for pain with significant improvement - Labs reviewed, notable for WBC 21.5. Blood cultures and lactate ordered. Levaquin for empiric treatment of infection given leukocytosis. - Pt at CT currently, will review when completed 03/22/18 20:50 - CT completed, no acute abnormalities noted but does not comment on gallbladder - RUQ US ordered to evaluate - Will most likely admit given pain and leukocytosis 03/22/18 22:39 - Given additional dilaudid for returning pain, episode of emesis following. 4mg IV zofran for nausea/vomiting - Lactate 1.5. Not concerning for sepsis - UA with 3+ leuk esterase, 41 WBC, 7 RBC. Given pain, may have pyelonephritis. US to be completed 03/22/18 23:42 - Spoke to CARSON Barraza regarding admission, will admit - Pt at ultrasound. Will review images when completed though unlikely to exchange specialist given suspected pyelonephritis. Seen and discussed with Dr Anderson. Narda Kapadia PGY1 *DC/Admit/Observation/Transfer Diagnosis at time of Disposition: Flank pain, Pyelonephritis - Discharge Dispostion Decision to Admit order: Yes - Referrals Referrals: Gisela Woodson MD [Staff Physician] - - Patient Instructions - Post Discharge Activity Forms/Work/School Notes: Back to Work
--- NOTE | 2018-03-22 19:20 | PDOC ---
Attending Attestation - Resident Resident Name: LouiseSaSylvie - ED Attending Attestation I have performed the following: I have examined & evaluated the patient, The case was reviewed & discussed with the resident, I agree w/resident's findings & plan, Exceptions are as noted - HPI HPI: 03/22/18 19:20 67-year-old female with history of hypertension, diabetes, coronary disease, asthma presents with sudden onset of right flank pain and diffuse abdominal pain. Patient reported that she was doing nothing particular when she started developed this pain. Denies fevers, chills, cough, vomiting, diarrhea, dysuria. Denies chest pain. First-time episode. Denies dysuria hematuria. - Physicial Exam PE: 03/22/18 19:15 GENERAL: Awake, alert, and fully oriented, +uncomfortable appearing HEAD: No signs of trauma EYES: EOMI, sclera anicteric, conjunctiva clear ENT: Auricles normal inspection, hearing grossly normal, nares patent, Moist mucosa NECK: Normal ROM, supple LUNGS: Breath sounds equal, clear to auscultation bilaterally. No wheezes, and no crackles HEART: Regular rate and rhythm, normal S1 and S2, no murmurs, rubs or gallops ABDOMEN: +diffuse abdominal pain and R CVA tenderness. EXTREMITIES: Normal range of motion, no edema. No clubbing or cyanosis. No cords, erythema, or tenderness NEUROLOGICAL: Cranial nerves II through XII grossly intact. Normal speech SKIN: Warm, Dry, normal turgor, no rashes or lesions noted. - Medical Decision Making 03/22/18 19:22 Vital Signs Temp Pulse Resp BP Pulse Ox 97.1 F L 78 16 168/96 96 03/22/18 15:23 03/22/18 15:23 03/22/18 15:23 03/22/18 15:23 03/22/18 15:23 67-year-old female patient presents with diffuse abdominal pain. Findings are concerning for potential aortic dissection, AAA rupture, colitis, cholecystitis , pyelonephritis, renal colic, gastroenteritis, pancreatitis. We'll obtain labs , CAT scan of the chest abdomen pelvis, urinalysis, pain control. Reassess. 03/22/18 20:49 CBC, BMP 03/22/18 16:36 03/22/18 16:36 CMP Sodium 139 mmol/L (136-145) 03/22/18 16:36 Potassium 3.9 mmol/L (3.5-5.1) 03/22/18 16:36 Chloride 102 mmol/L (98-107) 03/22/18 16:36 Carbon Dioxide 26 mmol/L (21-32) 03/22/18 16:36 Anion Gap 11 MMOL/L (8-16) 03/22/18 16:36 BUN 31 mg/dL (7-18) H 03/22/18 16:36 Creatinine 0.9 mg/dL (0.55-1.3) 03/22/18 16:36 Creat Clearance w eGFR > 60 (>60) 03/22/18 16:36 Random Glucose 127 mg/dL (74-106) H 03/22/18 16:36 Calcium 9.2 mg/dL (8.5-10.1) 03/22/18 16:36 Total Bilirubin 0.4 mg/dL (0.2-1) 03/22/18 16:36 AST 10 U/L (15-37) L 03/22/18 16:36 ALT 32 U/L (13-61) 03/22/18 16:36 Alkaline Phosphatase 69 U/L (45-117) 03/22/18 16:36 Troponin I < 0.02 ng/ml (0.00-0.05) 03/22/18 16:36 Total Protein 7.5 g/dl (6.4-8.2) 03/22/18 16:36 Albumin 3.5 g/dl (3.4-5.0) 03/22/18 16:36 Lipase 330 U/L (73-393) 03/22/18 16:36 CT reviewed. no Dissection. However? stranding around pancreas? Could this be pancreatis? Though lipase level WNL. Will obtain RUQ ultrasound to r/o acute cholecystitis. Blood cultures and lactate ordered. Empiric levaquin ordered. 03/22/18 22:36 Urine Test Results Urine Color Straw 03/22/18 21:33 Urine Appearance Clear 03/22/18 21:33 Urine pH 6.0 (5.0-8.0) 03/22/18 21:33 Ur Specific [place] > 1.060 (1.010-1.035) H 03/22/18 21:33 Urine Protein Negative (NEGATIVE) 03/22/18 21:33 Urine Glucose (UA) Negative (NEGATIVE) 03/22/18 21:33 Urine Ketones Negative (NEGATIVE) 03/22/18 21:33 Urine Blood Negative (NEGATIVE) 03/22/18 21:33 Urine Nitrite Negative (NEGATIVE) 03/22/18 21:33 Urine Bilirubin Negative (<2.0 mg/dL) 03/22/18 21:33 Ur Leukocyte Esterase 3+ (NEGATIVE) H 03/22/18 21:33 Ur Epithelial Cells Rare /HPF (FEW) 03/22/18 21:33 Urine Bacteria Rare /hpf (NONE SEEN) 03/22/18 21:33 UA 3+. This is concerning for pyelonephritis. Ultrasound pending. Either way, pt will need to be admitted. *DC/Admit/Observation/Transfer Diagnosis at time of Disposition: Flank pain Abdominal pain Qualifiers: Abdominal location: unspecified location Qualified Code(s): R10.9 - Unspecified abdominal pain - Referrals Referrals: Gisela Woodson MD [Staff Physician] - - Patient Instructions - Post Discharge Activity Forms/Work/School Notes: Back to Work Heart Score/ECG Review #1 ECG reviewed & interpreted by me at: 18:40 03/22/18 19:24 NSR 59, occasional PVC, +LVH, no std/chaparro, normal axis, normal intervals, QTC 403 msec
[2018-03-22 22:06] LABS: URINE APPEARANCE CLEAR; URINE BILIRUBIN NEGATIVE (<2.0 mg/dL); URINE COLOR STRAW; URINE GLUCOSE (UA) NEGATIVE (NEGATIVE); URINE KETONE NEGATIVE (NEGATIVE); URINE LEUK ESTERASE 3+ (NEGATIVE); URINE NITRITE NEGATIVE (NEGATIVE); URINE PROTEIN NEGATIVE (NEGATIVE); URINE UROBILINOGEN NEGATIVE mg/dL (0.2-1.0)
[2018-03-22 22:10] LABS: EPI CELLS RARE /HPF (FEW); URINE BACTERIA RARE /hpf (NONE SEEN)
[2018-03-22] MEDS ORDERED: ONDANSETRON 4 MG/2 ML VIAL IVPUSH ONE (22:39)
[2018-03-22] MEDS ORDERED: ONDANSETRON 4 MG/2 ML VIAL ONE (22:42)
--- NOTE | 2018-03-22 23:35 | HP ---
Admitting History and Physical - Primary Care Physician PCP: Karissa Ortiz I - Admission Chief Complaint: Abdominal Pain, R- Flank Pain History of Present Illness: 67 y/o womna with significant medical history of HTN, HLD, Non Obstructive CAD, Asthma, NIDDM, GERD, Fatty Liver. Who presents to the ED with right sided abdominal pain radiating to right flank. Patient denies fever, chills, cough, SOB, CP, V/D, constipation, dysuria. History Source: Patient Limitations to Obtaining History: No Limitations - Past Medical History Cardiovascular: Yes: HTN, Hyperlipdemia, Other (VPCs) Pulmonary: Yes: Asthma Gastrointestinal: Yes: GERD, Other (Hepatomegaly) Psych: Yes: Anxiety Endocrine: Yes: Diabetes Mellitus - Past Surgical History Past Surgical History: Yes: - Smoking History Smoking history: Unknown if ever smoked Have you smoked in the past 12 months: No Aproximately how many cigarettes per day: 0 - Alcohol/Substance Use Hx Alcohol Use: No History of Substance Use: reports: None - Social History ADL: Independent History of Recent Travel: No Home Medications - Allergies Allergies/Adverse Reactions: Allergies Allergy/AdvReac Type Severity Reaction Status Date / Time Penicillins Allergy Intermediate Rash Verified 03/16/18 14:30 morphine Allergy Mild Rash Uncoded 03/16/18 14:30 - Home Medications Home Medications: Ambulatory Orders Albuterol Sulfate Inhaler - [Ventolin HFA Inhaler -] 1 - 2 inh PO QID 07/21/15 Aspirin [ASA -] 81 mg PO DAILY 07/21/15 Loratadine [Claritin -] 10 mg PO DAILY #30 tablet 12/07/15 Folic Acid 1 mg PO DAILY 12/10/16 Metoclopramide HCl 5 mg PO PRN PRN 12/10/16 Omeprazole 40 mg PO DAILY 12/10/16 Metoprolol Tartrate [Lopressor -] 50 mg PO BID 01/05/18 Gabapentin [Neurontin] 300 mg PO HS 03/16/18 Icosapent Ethyl [Vascepa] 1 gm PO BID 03/16/18 Losartan/Hydrochlorothiazide [Losartan-Hctz 100-25 mg Tab] 1 each PO DAILY 03/16 Meclizine HCl 25 mg PO HS PRN 03/16/18 Meloxicam 5 mg PO TID 12/02/18 Mirtazapine 30 mg PO HS 03/16/18 Rosuvastatin Calcium [Crestor] 10 mg PO DAILY 03/16/18 Amlodipine Besylate [Norvasc -] 5 mg PO DAILY #30 tablet 03/21/18 Azithromycin 500 mg PO DAILY #5 tablet 03/21/18 Budesonide/Formeterol Fumarate [SYMBICORT 160/4.5mcg -] 1 inh PO BID #1 cannister 03/21/18 Guaifenesin Dm [Mucinex Dm -] 2 tablet PO BID #20 tab.er.12h 03/21/18 Montelukast Na [Singulair -] 10 mg PO HS #30 tablet 03/21/18 Prednisone 10 mg PO ASDIR #32 tablet 03/21/18 Sitagliptin Phosphate [Januvia -] 100 mg PO DAILY@0700 #30 ud 03/21/18 metFORMIN HCL [Glucophage -] 1,000 mg PO BID@0700,1630 #60 tablet 03/21/18 Family Disease History - Family Disease History Family Disease History: CA: Mother (Bladder) Review of Systems - Review of Systems Constitutional: reports: No Symptoms Eyes: reports: No Symptoms HENT: reports: No Symptoms Neck: reports: No Symptoms Cardiovascular: reports: No Symptoms Respiratory: reports: No Symptoms Gastrointestinal: reports: Abdominal Pain Genitourinary: reports: Flank Pain Breasts: reports: No Symptoms Reported Musculoskeletal: reports: Back Pain Integumentary: reports: No Symptoms Neurological: reports: No Symptoms Endocrine: reports: No Symptoms Hematology/Lymphatic: reports: No Symptoms Psychiatric: reports: No Symptoms Physical Examination Vital Signs: Vital Signs Temperature 97.1 F L 03/22/18 15:23 Pulse Rate 78 03/22/18 15:23 Respiratory Rate 16 03/22/18 15:23 Blood Pressure 168/96 03/22/18 15:23 O2 Sat by Pulse Oximetry (%) 96 03/22/18 15:23 Constitutional: Yes: Mild Distress Eyes: Yes: WNL, Conjunctiva Clear, EOM Intact, PERRL HENT: Yes: WNL, Atraumatic, Normocephalic Neck: Yes: WNL, Supple, Trachea Midline Cardiovascular: Yes: WNL, Regular Rate and Rhythm, S1, S2 Respiratory: Yes: WNL, Regular, CTA Bilaterally Gastrointestinal: Yes: Normal Bowel Sounds, Soft, Tenderness (RUQ) ...Rectal Exam: Yes: Deferred Renal/: Yes: CVA Tenderness - Right Breast(s): Yes: WNL Musculoskeletal: Yes: Back Pain Extremities: Yes: WNL Edema: No Peripheral Pulses WNL: Yes Neurological: Yes: WNL, Alert, Oriented ...Motor Strength: WNL Psychiatric: Yes: WNL, Alert, Oriented Labs: CBC, BMP 03/22/18 16:36 03/22/18 16:36 Imaging - Results Cat Scan: Report Reviewed, Image Reviewed Problem List - Problems (1) Pyelonephritis Assessment/Plan: UA +3 leukocyte esterase, 41 WBCs Urine Culture-pending CTAP- no acute abnormalities US- RUQ/Renal-pending Levofloxacin started, will continue Appreciate Urology consult Tylenol prn Monitor CBC, BMP Monitor vitals Code(s): N12 - TUBULO-INTERSTITIAL NEPHRITIS, NOT SPCF ACUTE OR CHRONIC (2) Flank pain Assessment/Plan: See above Code(s): R10.9 - UNSPECIFIED ABDOMINAL PAIN (3) Asthma Assessment/Plan: stable Continue bronchodilators Peakflow Continue Mucinex Continue Prednisone taper Code(s): J45.909 - UNSPECIFIED ASTHMA, UNCOMPLICATED (4) CAD (coronary artery disease) Assessment/Plan: stable Continue statin, Asa, BB EKG-reviewed Code(s): I25.10 - ATHSCL HEART DISEASE OF [place] CORONARY ARTERY W/O ANG PCTRS (5) Hypertension Assessment/Plan: sub optimal Monitor BP Continue Hyzaar, Metoprolol, Amlodipine Monitor renal function Code(s): I10 - ESSENTIAL (PRIMARY) HYPERTENSION (6) Diabetes mellitus Assessment/Plan: stable BGM AC, HS Novolog SS Diabetic/Low Na Diet on last admission A1c 8.4 Hold Metformin and Januvia secondary to recent contrast for CTAP/CTA Monitor renal function Code(s): E11.9 - TYPE 2 DIABETES MELLITUS WITHOUT COMPLICATIONS Assessment/Plan This is a 67 y/o woman with a PMHx of: HTN, HLD, Nonobstructive CAD, Asthma, NIDDM, GERD, Anxiety. Admitted for Acute Pyelonephritis for further evaluation of their emergent condition. Plan: FEN PO fluids as tolerated Replete lytes prn Low Na, Diabetic Diet DVT ppx OOB SCDs Lovenox SQ Code Status: Full Code Dispo: Requires Inpatient Care Visit type - Emergency Visit Emergency Visit: Yes ED Registration Date: 03/22/18 Care time: The patient presented to the Emergency Department on the above date and was hospitalized for further evaluation of their emergent condition. - New Patient This patient is new to me today: Yes Date on this admission: 03/22/18 - Critical Care Critical Care patient: No
[2018-03-23] MEDS ORDERED: METOCLOPRAMIDE HCL 10 MG TABLET (FP) PO PRN (00:07)
[2018-03-23] MEDS ORDERED: MECLIZINE HCL 25 MG TABLET (FP) PO PRN (00:07)
[2018-03-23] MEDS ORDERED: METOPROLOL TARTRATE 50 MG TABLET (FP) ONE (00:35)
[2018-03-23] MEDS ORDERED: GABAPENTIN 100 MG CAPSULE (FP) ONE (00:35)
[2018-03-23] MEDS: METOPROLOL TARTRATE 50 MG TABLET (FP) PO SCH ×3 (00:59→21:52)
[2018-03-23] MEDS: GABAPENTIN 300 MG CAPSULE (FP) PO SCH ×2 (00:59→21:52)
[2018-03-23] MEDS: BUDESONIDE/FORMETEROL FUMARATE 160/4.5 mcg INHALER IH SCH ×3 (01:00→21:52)
[2018-03-23] MEDS: DEXTROSE 5%-0.45% SALINE 1,000 ML IV SCH ×2 (04:40→17:18)
[2018-03-23] MEDS: ACETAMINOPHEN 1000 MG/100 ML VIAL (NON FORMULARY) IVPB PRN ×2 (05:15→14:31)
[2018-03-23 08:10] VITALS: BMI 26.4
[2018-03-23 09:03] LABS: BASO % 0.3 % (0-2.0); EOS % 0.9 % (0-4.5); HEMATOCRIT 37.7 % (32.4-45.2); HEMOGLOBIN 11.7 GM/dL (10.7-15.3); LYMPH % 21.1 % (8-40); MCH 24.1 pg (25.7-33.7); MCHC 31.2 g/dl (32.0-36.0); MEAN CELL VOLUME 77.4 fl (80-96); MEAN PLT VOLUME 6.8 fl (7.5-11.1); MONO % 7.1 % (3.8-10.2); NEUT % 70.6 % (42.8-82.8); PLATELET COUNT 350 K/MM3 (134-434); RBC 4.86 M/mm3 (3.60-5.2); RDW 15.4 % (11.6-15.6); WHITE BLOOD COUNT 13.8 K/mm3 (4.0-10.0)
--- NOTE | 2018-03-23 09:22 | EKG ---
Test Reason : Blood Pressure : / mmHG Vent. Rate : 059 BPM Atrial Rate : 059 BPM P-R Int : 126 ms QRS Dur : 084 ms QT Int : 408 ms P-R-T Axes : 005 -09 090 degrees QTc Int : 403 ms SINUS BRADYCARDIA WITH OCCASIONAL PREMATURE VENTRICULAR COMPLEXES MODERATE VOLTAGE CRITERIA FOR LVH, MAY BE NORMAL VARIANT BORDERLINE ECG WHEN COMPARED WITH ECG OF 16-MAR-2018 15:51, PREMATURE VENTRICULAR COMPLEXES ARE NOW PRESENT VENT. RATE HAS DECREASED BY 47 BPM QT HAS SHORTENED Confirmed by CAYDEN LARSON, NAFISA ([id number]) on 03/23/2018 9:22:20 AM Referred By: Confirmed By:NAFISA RODARTE MD
[2018-03-23 09:38] LABS: ANION GAP 11 MMOL/L (8-16); BLOOD UREA NITROGEN 24 mg/dL (7-18); CALCIUM 7.9 mg/dL (8.5-10.1); CHLORIDE 101 mmol/L (98-107); CO2 26 mmol/L (21-32); CREATININE 0.8 mg/dL (0.55-1.3); GLUCOSE,RANDOM 143 mg/dL (74-106); POTASSIUM 3.9 mmol/L (3.5-5.1); SODIUM 138 mmol/L (136-145)
[2018-03-23] MEDS ORDERED: AZITHROMYCIN 250 MG TABLET PO SCH (10:00)
[2018-03-23] MEDS ORDERED: PT OWN MED DRAWER 7, Y5N ONE ×2 (10:29→21:40)
[2018-03-23] MEDS: PANTOPRAZOLE 40 MG TABLET (FP) PO SCH (10:38)
[2018-03-23] MEDS: amLODIPine BESYLATE 5 MG TABLET (FP) PO SCH (10:38)
[2018-03-23] MEDS: ASPIRIN 81 MG CHEWABLE TABLETS PO SCH (10:38)
[2018-03-23] MEDS: guaiFENesin/D-METHORPHAN HB 1 EACH TAB.ER.12H PO SCH ×2 (10:39→21:52)
[2018-03-23] MEDS: ENOXAPARIN NA (PORCINE) 40 MG/0.4 ML DISP.SYRIN SQ SCH (10:39)
[2018-03-23] MEDS: FOLIC ACID 1 MG TABLET (FP) PO SCH (10:39)
--- NOTE | 2018-03-23 12:00 | CON.GU ---
Consult Consult Specialty:: Reason for Consultation:: pyelonephritis - History of Present Illness Chief Complaint: abd pain History of Present Illness: 67 y/o f with significant medical history of HTN, HLD, Non Obstructive CAD, Asthma, NIDDM, GERD, Fatty Liver. Who presents to the ED with right sided abdominal pain radiating to right flank. Patient denies fever, chills, cough, SOB, CP, V/D, constipation, dysuria. She was found to have R pyelonephritis and cons req. - History Source History Provided By: Patient, Medical Record Limitations to Obtaining History: No Limitations - Past Medical History Cardio/Vascular: Yes: HTN, Hyperlipdemia, Other (VPCs) Pulmonary: Yes: Asthma Gastrointestinal: Yes: GERD, Other (Hepatomegaly) Psych: Yes: Anxiety Endocrine: Yes: Diabetes Mellitus - Past Surgical History Past Surgical History: Yes: - Alcohol/Substance Use Hx Alcohol Use: No History of Substance Use: reports: None - Smoking History Smoking history: Unknown if ever smoked Have you smoked in the past 12 months: No Aproximately how many cigarettes per day: 0 - Social History ADL: Independent History of Recent Travel: No Home Medications - Allergies Allergies/Adverse Reactions: Allergies Allergy/AdvReac Type Severity Reaction Status Date / Time Penicillins Allergy Intermediate Rash Verified 03/16/18 14:30 morphine Allergy Mild Rash Uncoded 03/16/18 14:30 - Home Medications Home Medications: Ambulatory Orders Albuterol Sulfate Inhaler - [Ventolin HFA Inhaler -] 1 - 2 inh PO QID 07/21/15 Aspirin [ASA -] 81 mg PO DAILY 07/21/15 Loratadine [Claritin -] 10 mg PO DAILY #30 tablet 12/07/15 Folic Acid 1 mg PO DAILY 12/10/16 Metoclopramide HCl 5 mg PO PRN PRN 12/10/16 Omeprazole 40 mg PO DAILY 12/10/16 Metoprolol Tartrate [Lopressor -] 50 mg PO BID 01/05/18 Gabapentin [Neurontin] 300 mg PO HS 03/16/18 Icosapent Ethyl [Vascepa] 1 gm PO BID 03/16/18 Losartan/Hydrochlorothiazide [Losartan-Hctz 100-25 mg Tab] 1 each PO DAILY 03/16 Meclizine HCl 25 mg PO HS PRN 03/16/18 Meloxicam 5 mg PO TID 03/16/18 Mirtazapine 30 mg PO HS 03/16/18 Rosuvastatin Calcium [Crestor] 10 mg PO DAILY 03/16/18 Amlodipine Besylate [Norvasc -] 5 mg PO DAILY #30 tablet 03/21/18 Azithromycin 500 mg PO DAILY #5 tablet 03/21/18 Budesonide/Formeterol Fumarate [SYMBICORT 160/4.5mcg -] 1 inh PO BID #1 cannister 03/21/18 Guaifenesin Dm [Mucinex Dm -] 2 tablet PO BID #20 tab.er.12h 03/21/18 Montelukast Na [Singulair -] 10 mg PO HS #30 tablet 03/21/18 Prednisone 10 mg PO ASDIR #32 tablet 03/21/18 Sitagliptin Phosphate [Januvia -] 100 mg PO DAILY@0700 #30 ud 03/21/18 metFORMIN HCL [Glucophage -] 1,000 mg PO BID@0700,1630 #60 tablet 03/21/18 Family Disease History - Family Disease History Family Disease History: CA: Mother (Bladder) Physical Exam- Vital Signs: Vital Signs Temperature 98.1 F 03/23/18 10:00 Pulse Rate 62 03/23/18 10:00 Respiratory Rate 18 03/23/18 10:00 Blood Pressure 156/80 03/23/18 10:00 O2 Sat by Pulse Oximetry (%) 97 03/23/18 02:30 Gastrointestinal: Yes: Soft, Tenderness Renal/: Yes: CVA Tenderness - Right Labs: CBC, BMP 03/23/18 08:20 03/23/18 08:20 Imaging - Results Cat Scan: Report Reviewed, Image Reviewed Problem List - Problems (1) Flank pain Code(s): R10.9 - UNSPECIFIED ABDOMINAL PAIN (2) Pyelonephritis Assessment/Plan: ur c+s, iv abxs, f/u after disch Code(s): N12 - TUBULO-INTERSTITIAL NEPHRITIS, NOT SPCF ACUTE OR CHRONIC (3) UTI (urinary tract infection) Code(s): N39.0 - URINARY TRACT INFECTION, SITE NOT SPECIFIED Qualifiers: Urinary tract infection type: site unspecified Hematuria presence: without hematuria Qualified Code(s): N39.0 - Urinary tract infection, site not specified
--- NOTE | 2018-03-23 14:57 | PN ---
Progress Note, Physician - Current Medication List Current Medications: Active Medications Acetaminophen (Ofirmev Injection -) 1,000 mg IVPB Q6H PRN PRN Reason: FEVER Last Admin: 03/23/18 14:31 Dose: 1,000 mg Amlodipine Besylate (Norvasc -) 5 mg PO DAILY [facility] Last Admin: 03/23/18 10:38 Dose: 5 mg Aspirin (Asa -) 81 mg PO DAILY [facility] Last Admin: 03/23/18 10:38 Dose: 81 mg Budesonide/Formoterol Fumarate (Symbicort 160/4.5mcg -) 1 puff IH BID [facility] Last Admin: 03/23/18 10:51 Dose: 1 puff Enoxaparin Sodium (Lovenox -) 40 mg SQ DAILY [facility] Last Admin: 03/23/18 10:39 Dose: 40 mg Folic Acid (Folic Acid -) 1 mg PO DAILY [facility] Last Admin: 03/23/18 10:39 Dose: 1 mg Gabapentin (Neurontin -) 300 mg PO HS [facility] Last Admin: 03/23/18 00:59 Dose: 300 mg Guaifenesin (Mucinex Dm -) 2 tablet PO BID [facility] Stop: 03/31/18 09:59 Last Admin: 03/23/18 10:39 Dose: 2 tablet Dextrose/Sodium Chloride (D5-1/2ns -) 1,000 mls @ 75 mls/hr IV ASDIR [facility] Last Admin: 03/23/18 04:40 Dose: 75 mls/hr Levofloxacin (Levaquin 750 Mg Premixed Ivpb -) 750 mg in 150 mls @ 150 mls/hr IVPB DAILY [facility]; Protocol Stop: 03/28/18 09:59 Last Admin: 03/23/18 10:39 Dose: 150 mls/hr Meclizine HCl (Antivert -) 25 mg PO HS PRN PRN Reason: VERTIGO Metoclopramide HCl (Reglan -) 5 mg PO Q8H PRN PRN Reason: NAUSEA Metoprolol Tartrate (Lopressor -) 50 mg PO BID [facility] Last Admin: 03/23/18 10:38 Dose: 50 mg Mirtazapine (Remeron -) 30 mg PO HS [facility] Montelukast Sodium (Singulair -) 10 mg PO HS [facility] Pantoprazole Sodium (Protonix -) 40 mg PO DAILY [facility] Last Admin: 03/23/18 10:38 Dose: 40 mg Rosuvastatin Calcium (Crestor -) 10 mg PO HS [facility] - Objective Vital Signs: Vital Signs Temperature 97.6 F 03/23/18 13:24 Pulse Rate 60 03/23/18 13:24 Respiratory Rate 18 03/23/18 13:24 Blood Pressure 156/80 03/23/18 10:00 O2 Sat by Pulse Oximetry (%) 97 03/23/18 02:30 Labs: CBC, BMP 03/23/18 08:20 03/23/18 08:20 Problem List - Problems (1) Back pain Assessment/Plan: - Review Ct scan Code(s): M54.9 - DORSALGIA, UNSPECIFIED (2) Pyelonephritis Assessment/Plan: UA +3 leukocyte esterase, 41 WBCs Urine Culture-pending CTAP- no acute abnormalities US- RUQ/Renal-pending Levofloxacin started, will continue Appreciate Urology consult Tylenol prn Monitor CBC, BMP Monitor vitals Urology consult Code(s): N12 - TUBULO-INTERSTITIAL NEPHRITIS, NOT SPCF ACUTE OR CHRONIC (3) Abdominal pain Assessment/Plan: As above GI consult Code(s): R10.9 - UNSPECIFIED ABDOMINAL PAIN (4) Diabetes mellitus Assessment/Plan: bgm and ss stable BGM AC, HS Novolog SS Diabetic/Low Na Diet on last admission A1c 8.4 Hold Metformin and Januvia secondary to recent contrast for CTAP/CTA Monitor renal function Code(s): E11.9 - TYPE 2 DIABETES MELLITUS WITHOUT COMPLICATIONS
[2018-03-23] MEDS: MONTELUKAST NA 10 MG TABLET PO SCH (21:52)
[2018-03-23] MEDS: ROSUVASTATIN CA 10 MG TABLET (FP) PO SCH (21:52)
[2018-03-23] MEDS: MIRTAZAPINE 15 MG TABLET (FP) PO SCH (21:52)
[2018-03-23] MEDS: HYDROmorphone HCl 2 MG/ML VIAL IVPB PRN (21:55)
[2018-03-24] MEDS: DEXTROSE 5%-0.45% SALINE 1,000 ML IV SCH ×2 (03:39→23:09)
[2018-03-24 07:45] LABS: BASO % 0.1 % (0-2.0); EOS % 1.4 % (0-4.5); HEMATOCRIT 32.9 % (32.4-45.2); HEMOGLOBIN 11.1 GM/dL (10.7-15.3); LYMPH % 23.6 % (8-40); MCHC 33.9 g/dl (32.0-36.0); MEAN CELL VOLUME 76.7 fl (80-96); MEAN PLT VOLUME 6.8 fl (7.5-11.1); MONO % 8.3 % (3.8-10.2); NEUT % 66.6 % (42.8-82.8); PLATELET COUNT 307 K/MM3 (134-434); RBC 4.28 M/mm3 (3.60-5.2); RDW 15.3 % (11.6-15.6)
[2018-03-24 09:07] LABS: ALBUMIN 2.3 g/dl (3.4-5.0); ALK PHOS 62 U/L (45-117); ANION GAP 7 MMOL/L (8-16); BILIRUBIN,TOTAL 0.4 mg/dL (0.2-1); BLOOD UREA NITROGEN 15 mg/dL (7-18); CALCIUM 8.2 mg/dL (8.5-10.1); CHLORIDE 103 mmol/L (98-107); CO2 29 mmol/L (21-32); CREATININE 0.9 mg/dL (0.55-1.3); GLUCOSE,RANDOM 141 mg/dL (74-106); LIPASE 182 U/L (73-393); POTASSIUM 3.5 mmol/L (3.5-5.1); SGOT/AST 11 U/L (15-37); SGPT/ALT 23 U/L (13-61); SODIUM 139 mmol/L (136-145); TOT PROT 5.4 g/dl (6.4-8.2)
[2018-03-24] MEDS: ASPIRIN 81 MG CHEWABLE TABLETS PO SCH (10:07)
[2018-03-24] MEDS: PANTOPRAZOLE 40 MG TABLET (FP) PO SCH (10:07)
[2018-03-24] MEDS: FOLIC ACID 1 MG TABLET (FP) PO SCH (10:07)
[2018-03-24] MEDS: amLODIPine BESYLATE 5 MG TABLET (FP) PO SCH (10:07)
[2018-03-24] MEDS: METOPROLOL TARTRATE 50 MG TABLET (FP) PO SCH ×2 (10:07→23:08)
[2018-03-24] MEDS: guaiFENesin/D-METHORPHAN HB 1 EACH TAB.ER.12H PO SCH ×2 (10:09→23:08)
[2018-03-24] MEDS: ENOXAPARIN NA (PORCINE) 40 MG/0.4 ML DISP.SYRIN SQ SCH (10:10)
[2018-03-24] MEDS: BUDESONIDE/FORMETEROL FUMARATE 160/4.5 mcg INHALER IH SCH ×2 (10:11→23:07)
--- NOTE | 2018-03-24 10:44 | CON.ID ---
Consult Consult Specialty:: infectious disease Referred by:: dr mondragon Reason for Consultation:: leukocytosis, back pain - History of Present Illness Chief Complaint: back pain History of Present Illness: 67 yo female just hospitalized 03/16 to 03/21 with asthma treated with nebs, steroids and zithromax did well and was discharged home on po prednisone the next day she developed severe back pain and came to Ed denies fever denies dysuria no nausea or vomiting no trouble breathing +UA for leukocytes elevated WBC but on steroids- which have been stopped CTA with bibasilar atelectatic changed and stranding/mesenteric edema of the pancreatic head she reports pain in the lower back that radiated around to the front still quite severe is OOB in chair no radiation to her legs - History Source History Provided By: Patient Limitations to Obtaining History: No Limitations - Past Medical History Cardio/Vascular: Yes: HTN, Hyperlipdemia, Other (VPCs) Pulmonary: Yes: Asthma Gastrointestinal: Yes: GERD, Other (Hepatomegaly) Psych: Yes: Anxiety Endocrine: Yes: Diabetes Mellitus - Past Surgical History Past Surgical History: Yes: - Alcohol/Substance Use Hx Alcohol Use: No History of Substance Use: reports: None - Smoking History Smoking history: Unknown if ever smoked Have you smoked in the past 12 months: No Aproximately how many cigarettes per day: 0 - Social History Usual Living Arrangement: With Child ADL: Independent Place of : Other ([place]) History of Recent Travel: No Home Medications - Allergies Allergies/Adverse Reactions: Allergies Allergy/AdvReac Type Severity Reaction Status Date / Time Penicillins Allergy Intermediate Rash Verified 03/16/18 14:30 morphine Allergy Mild Rash Uncoded 03/16/18 14:30 - Home Medications Home Medications: Ambulatory Orders Albuterol Sulfate Inhaler - [Ventolin HFA Inhaler -] 1 - 2 inh PO QID 07/21/15 Aspirin [ASA -] 81 mg PO DAILY 07/21/15 Loratadine [Claritin -] 10 mg PO DAILY #30 tablet 12/07/15 Folic Acid 1 mg PO DAILY 12/10/16 Metoclopramide HCl 5 mg PO PRN PRN 12/10/16 Omeprazole 40 mg PO DAILY 12/10/16 Metoprolol Tartrate [Lopressor -] 50 mg PO BID 01/05/18 Gabapentin [Neurontin] 300 mg PO HS 03/16/18 Icosapent Ethyl [Vascepa] 1 gm PO BID 03/16/18 Losartan/Hydrochlorothiazide [Losartan-Hctz 100-25 mg Tab] 1 each PO DAILY 03/16 Meclizine HCl 25 mg PO HS PRN 03/16/18 Meloxicam 5 mg PO TID 03/16/18 Mirtazapine 30 mg PO HS 03/16/18 Rosuvastatin Calcium [Crestor] 10 mg PO DAILY 03/16/18 Amlodipine Besylate [Norvasc -] 5 mg PO DAILY #30 tablet 03/21/18 Azithromycin 500 mg PO DAILY #5 tablet 03/21/18 Budesonide/Formeterol Fumarate [SYMBICORT 160/4.5mcg -] 1 inh PO BID #1 cannister 03/21/18 Guaifenesin Dm [Mucinex Dm -] 2 tablet PO BID #20 tab.er.12h 03/21/18 Montelukast Na [Singulair -] 10 mg PO HS #30 tablet 03/21/18 Prednisone 10 mg PO ASDIR #32 tablet 03/21/18 Sitagliptin Phosphate [Januvia -] 100 mg PO DAILY@0700 #30 ud 03/21/18 metFORMIN HCL [Glucophage -] 1,000 mg PO BID@0700,1630 #60 tablet 03/21/18 Family Disease History - Family Disease History Family Disease History: CA: Mother (Bladder) Review of Systems - Review of Systems Constitutional: denies: Chills, Diaphoresis, Fever Eyes: reports: No Symptoms HENT: reports: No Symptoms Neck: reports: No Symptoms Cardiovascular: reports: No Symptoms. denies: Chest Pain Respiratory: reports: No Symptoms. denies: Cough Gastrointestinal: reports: No Symptoms Genitourinary: denies: Burning, Dysuria, Frequency, Hematuria Musculoskeletal: reports: Back Pain Physical Exam Vital Signs: Vital Signs Temperature 98.1 F 03/24/18 04:00 Pulse Rate 69 03/24/18 04:00 Respiratory Rate 20 03/24/18 04:00 Blood Pressure 132/67 03/24/18 04:00 O2 Sat by Pulse Oximetry (%) 97 03/23/18 21:00 Constitutional: Yes: Calm, Mild Distress Eyes: Yes: Conjunctiva Clear HENT: Yes: Atraumatic, Normocephalic Neck: Yes: Supple, Trachea Midline Cardiovascular: Yes: Regular Rate and Rhythm Respiratory: Yes: Regular, CTA Bilaterally Gastrointestinal: Yes: Normal Bowel Sounds, Soft ...Rectal Exam: Yes: Deferred Renal/: No: Bladder Distention, CVA Tenderness - Left, CVA Tenderness - Right Musculoskeletal: Yes: Back Pain (discomfort lumbar spine radiating to both flanks) Extremities: Yes: WNL Edema: No Integumentary: Yes: Other (papular- vesicular rash on the left thigh) Neurological: Yes: Alert, Oriented Psychiatric: Yes: Alert, Oriented Labs: CBC, BMP 03/24/18 07:20 03/24/18 07:20 Microbiology 03/22/18 21:33 Urine - Urine Clean Catch Urine Culture - Preliminary Staphylococcus Coagulase Neg 03/22/18 21:33 Blood - Peripheral Venous Blood Culture - Preliminary NO GROWTH OBTAINED AFTER 24 HOURS, INCUBATION TO CONTINUE FOR 4 DAYS. 03/22/18 21:33 Blood - Peripheral Venous Blood Culture - Preliminary NO GROWTH OBTAINED AFTER 24 HOURS, INCUBATION TO CONTINUE FOR 4 DAYS. Imaging - Results Cat Scan: Report Reviewed, Image Reviewed Problem List - Problems (1) Back pain Code(s): M54.9 - DORSALGIA, UNSPECIFIED (2) Rash Code(s): R21 - RASH AND OTHER NONSPECIFIC SKIN ERUPTION (3) UTI (urinary tract infection) Code(s): N39.0 - URINARY TRACT INFECTION, SITE NOT SPECIFIED Qualifiers: Urinary tract infection type: site unspecified Hematuria presence: without hematuria Qualified Code(s): N39.0 - Urinary tract infection, site not specified Assessment/Plan ?zoster would start valtrex 1 gram po tid would obtain MRI of the lower back and have neurology see her I am not convinced she has pyelonephritis ?stranding pancreatic head- GI evaluation pending UTI- pen allergy rash - continue levaquin d/w dr thomas
[2018-03-24] MEDS ORDERED: INSULIN (NOVOLOG) ASPART 100 UNITS/ML 10ML VIAL ONE (10:53)
[2018-03-24] MEDS: INSULIN SLIDING SCALE (NOVOLOG) 1 VIAL SQ SCH ×3 (11:36→23:09)
--- NOTE | 2018-03-24 12:45 | PN ---
Progress Note, Physician Chief Complaint: patient seen and examined complaining of back pain not feeling well - Current Medication List Current Medications: Active Medications Acetaminophen (Ofirmev Injection -) 1,000 mg IVPB Q6H PRN PRN Reason: FEVER Last Admin: 03/23/18 14:31 Dose: 1,000 mg Amlodipine Besylate (Norvasc -) 5 mg PO DAILY [facility] Last Admin: 03/24/18 10:07 Dose: 5 mg Aspirin (Asa -) 81 mg PO DAILY [facility] Last Admin: 03/24/18 10:07 Dose: 81 mg Budesonide/Formoterol Fumarate (Symbicort 160/4.5mcg -) 1 puff IH BID [facility] Last Admin: 03/24/18 10:11 Dose: 1 puff Enoxaparin Sodium (Lovenox -) 40 mg SQ DAILY [facility] Last Admin: 03/24/18 10:10 Dose: 40 mg Folic Acid (Folic Acid -) 1 mg PO DAILY [facility] Last Admin: 03/24/18 10:07 Dose: 1 mg Gabapentin (Neurontin -) 300 mg PO HS [facility] Last Admin: 03/23/18 21:52 Dose: 300 mg Guaifenesin (Mucinex Dm -) 2 tablet PO BID [facility] Stop: 03/31/18 09:59 Last Admin: 03/24/18 10:09 Dose: 2 tablet Hydromorphone HCl (Dilaudid Vial -) 1 mg IVPB Q6H PRN PRN Reason: PAIN LEVEL 7 - 10 Last Admin: 03/23/18 21:55 Dose: 1 mg Dextrose/Sodium Chloride (D5-1/2ns -) 1,000 mls @ 75 mls/hr IV ASDIR [facility] Last Admin: 03/24/18 03:39 Dose: 75 mls/hr Levofloxacin (Levaquin 750 Mg Premixed Ivpb -) 750 mg in 150 mls @ 150 mls/hr IVPB DAILY [facility]; Protocol Stop: 03/28/18 09:59 Last Admin: 03/24/18 10:05 Dose: 150 mls/hr Insulin Aspart (Novolog Vial Sliding Scale -) 1 vial SQ ACHS [facility]; Protocol Last Admin: 03/24/18 11:36 Dose: Not Given Meclizine HCl (Antivert -) 25 mg PO HS PRN PRN Reason: VERTIGO Metoclopramide HCl (Reglan -) 5 mg PO Q8H PRN PRN Reason: NAUSEA Metoprolol Tartrate (Lopressor -) 50 mg PO BID [facility] Last Admin: 03/24/18 10:07 Dose: 50 mg Mirtazapine (Remeron -) [address] [facility] Last Admin: 03/23/18 21:52 Dose: 30 mg Montelukast Sodium (Singulair -) 10 mg PO HS [facility] Last Admin: 03/23/18 21:52 Dose: 10 mg Pantoprazole Sodium (Protonix -) 40 mg PO DAILY [facility] Last Admin: 03/24/18 10:07 Dose: 40 mg Rosuvastatin Calcium (Crestor -) 10 mg PO HS [facility] Last Admin: 03/23/18 21:52 Dose: 10 mg Valacyclovir HCl (Valtrex -) 1,000 mg PO TID [facility] - Objective Vital Signs: Vital Signs Temperature 98.6 F 03/24/18 10:00 Pulse Rate 72 03/24/18 10:00 Respiratory Rate 20 03/24/18 10:00 Blood Pressure 120/60 03/24/18 10:00 O2 Sat by Pulse Oximetry (%) 97 03/23/18 21:00 Constitutional: Yes: Mild Distress Cardiovascular: Yes: Regular Rate and Rhythm, S1, S2 Respiratory: Yes: CTA Bilaterally Gastrointestinal: Yes: Normal Bowel Sounds, Soft Musculoskeletal: Yes: Other (no tenderness on exam) Labs: CBC, BMP 03/24/18 07:20 03/24/18 07:20 Problem List - Problems (1) Back pain Assessment/Plan: MRI of back neurology consult Code(s): M54.9 - DORSALGIA, UNSPECIFIED (2) UTI (urinary tract infection) Assessment/Plan: iv levaquin awaitng culutres Code(s): N39.0 - URINARY TRACT INFECTION, SITE NOT SPECIFIED (3) Rash Assessment/Plan: started on valtrex neurontin ivf Code(s): R21 - RASH AND OTHER NONSPECIFIC SKIN ERUPTION
[2018-03-24] MEDS: HYDROmorphone HCl 2 MG/ML VIAL IVPB PRN ×2 (12:57→23:10)
[2018-03-24] MEDS: valACYclovir HCL 500 MG TABLET (FP) PO SCH ×2 (14:56→23:07)
--- NOTE | 2018-03-24 23:00 | CONSULT ---
Consult - text type - Consultation Consultation Note: NEUROLOGY CONSULTATION is greatly appreciated: This 67 yo RH woman with h/o HTN, DM, Asthma, Chol was recently admitted for exacerbation of asthma requiring in patient and out patient steroid treatment. Maintained on: Albutero; Aspirin 81; Loratadine; metoclopramide; Omeprazole; Metoprolol; Gabapentin 300 mg PO HS; Vascepa; Losartan/Hydrochlorothiazide; Meclizine; meloxicam; Mirtazapine; Rosuvastatin; Amlodipine; Azithromycin; SYMBICORT; Montelukast; Prednisone; Januvia; and metFORMIN HCL. Now she returns with new onset of severe low back pain with radiation into both groins and down the left lateral thigh. A rash c/w an herpetic eruption was found over the left lateral thigh and the patient was started on Valcyclovir and dilaudid for pain. In addition her admission WBC was 21.5 K and her urinary WBC was 41. Started on levaquin. MRI of the LS spine (reviewed and not yet reported): shows normal alignment and disk space height. Sacralization of L5. Mild disk dessication and bulges bertha at L1L2 without spinal stenosis or lateral recess stenosis. No sign of epidural abscess, discitis or osteomyelitis was seen. [place]: Neck supple. No LS rashes. A small vesicular rash is seen over the left lateral thigh. Negative straight leg raising. NEURO: MS/speech: normal. Fluent in [place] CN II-XII: Normal Motor: No drift or tremor. Normal strength, tone bulk and reflexes. Toes are downgoing. Coord: No FTN dystaxia Sensory: Normal Gait: Normal. Sl antalgic to the left leg. IMP: Essentially normal neurological exam. No clinical evidence of active radiculoapathy or radiographic evidence of HNP. Suspect acute pain is due to Herpetic eruption (either HSV-2 or Varicella ). SUGGEST: Continue current antiviral and antibiotic Rx as per ID. Continue current pain Rx. Thank you very much, Ho Garcia MD
[2018-03-24] MEDS: MIRTAZAPINE 15 MG TABLET (FP) PO SCH (23:07)
[2018-03-24] MEDS: MONTELUKAST NA 10 MG TABLET PO SCH (23:07)
[2018-03-24] MEDS: ROSUVASTATIN CA 10 MG TABLET (FP) PO SCH (23:08)
[2018-03-24] MEDS: GABAPENTIN 300 MG CAPSULE (FP) PO SCH (23:24)
[2018-03-25] MEDS: valACYclovir HCL 500 MG TABLET (FP) PO SCH ×2 (05:49→14:19)
[2018-03-25] MEDS: DEXTROSE 5%-0.45% SALINE 1,000 ML IV SCH (05:49)
[2018-03-25] MEDS: HYDROmorphone HCl 2 MG/ML VIAL IVPB PRN (05:50)
[2018-03-25] MEDS: INSULIN SLIDING SCALE (NOVOLOG) 1 VIAL SQ SCH ×3 (06:12→16:38)
[2018-03-25] MEDS ORDERED: PT OWN MED DRAWER 7, Y5N ONE (09:42)
[2018-03-25] MEDS: amLODIPine BESYLATE 5 MG TABLET (FP) PO SCH (09:47)
[2018-03-25] MEDS: FOLIC ACID 1 MG TABLET (FP) PO SCH (09:47)
[2018-03-25] MEDS: ASPIRIN 81 MG CHEWABLE TABLETS PO SCH (09:47)
[2018-03-25] MEDS: BUDESONIDE/FORMETEROL FUMARATE 160/4.5 mcg INHALER IH SCH (09:47)
[2018-03-25] MEDS: METOPROLOL TARTRATE 50 MG TABLET (FP) PO SCH (09:48)
[2018-03-25] MEDS: PANTOPRAZOLE 40 MG TABLET (FP) PO SCH (09:48)
[2018-03-25] MEDS: ENOXAPARIN NA (PORCINE) 40 MG/0.4 ML DISP.SYRIN SQ SCH (09:48)
[2018-03-25] MEDS: guaiFENesin/D-METHORPHAN HB 1 EACH TAB.ER.12H PO SCH (09:49)
[2018-03-25 14:48] VITALS: BP 107/49; PULSE 68; TEMP 98.2
--- NOTE | 2018-03-25 14:51 | DS ---
Physical Examination Vital Signs: Vital Signs Temperature 98.2 F 03/25/18 14:47 Pulse Rate 68 03/25/18 14:47 Respiratory Rate 18 03/25/18 14:47 Blood Pressure 107/49 L 03/25/18 14:47 O2 Sat by Pulse Oximetry (%) 95 03/24/18 21:00 Constitutional: Yes: No Distress Eyes: Yes: WNL HENT: Yes: WNL Neck: Yes: WNL Cardiovascular: Yes: WNL Respiratory: Yes: WNL Gastrointestinal: Yes: WNL Renal/: Yes: WNL Musculoskeletal: Yes: WNL Extremities: Yes: WNL Edema: No Peripheral Pulses WNL: Yes Integumentary: Yes: WNL Wound/Incision: Yes: Clean/Dry Neurological: Yes: WNL ...Motor Strength: WNL Psychiatric: Yes: WNL Labs: CBC, BMP 03/24/18 07:20 03/24/18 07:20 Discharge Summary Reason For Visit: PYELONEPHRITIS Current Active Problems Abdominal pain (Acute) Back pain (Acute) Flank pain (Acute) Pyelonephritis (Acute) Rash (Acute) UTI (urinary tract infection) (Acute) Procedures: Principal: MRI [facility] Hospital Course: PATIENT ADMITTED R/O PYELONEPHRITIS, GIVEN IV ABX AND ANTIVIRALS, REVIEWED BY NEUROLOGY AND UROLOGY, CAN F/U OUT PATIENT AFTER COMPLETING LEVAQUIN AND VALTREX - Instructions Diet, Activity, Other Instructions: SEE DR ANDREW MELO IN 1 WEEK Referrals: Gisela Woodson MD [Staff Physician] - Disposition: HOME - Home Medications Comprehensive Discharge Medication List: Ambulatory Orders Albuterol Sulfate Inhaler - [Ventolin HFA Inhaler -] 1 - 2 inh PO QID 07/21/15 Aspirin [ASA -] 81 mg PO DAILY 07/21/15 Loratadine [Claritin -] 10 mg PO DAILY #30 tablet 12/07/15 Folic Acid 1 mg PO DAILY 12/10/16 Metoclopramide HCl 5 mg PO PRN PRN 12/10/16 Omeprazole 40 mg PO DAILY 12/10/16 Metoprolol Tartrate [Lopressor -] 50 mg PO BID 01/05/18 Gabapentin [Neurontin] 300 mg PO HS 03/16/18 Icosapent Ethyl [Vascepa] 1 gm PO BID 03/16/18 Losartan/Hydrochlorothiazide [Losartan-Hctz 100-25 mg Tab] 1 each PO DAILY 03/16 Meclizine HCl 25 mg PO HS PRN 03/16/18 Meloxicam 5 mg PO TID 03/16/18 Mirtazapine 30 mg PO HS 03/16/18 Rosuvastatin Calcium [Crestor] 10 mg PO DAILY 03/16/18 Amlodipine Besylate [Norvasc -] 5 mg PO DAILY #30 tablet 03/21/18 Budesonide/Formeterol Fumarate [SYMBICORT 160/4.5mcg -] 1 inh PO BID #1 cannister 03/21/18 Guaifenesin Dm [Mucinex Dm -] 2 tablet PO BID #20 tab.er.12h 03/21/18 Montelukast Na [Singulair -] 10 mg PO HS #30 tablet 03/21/18 Prednisone 10 mg PO ASDIR #32 tablet 03/21/18 Sitagliptin Phosphate [Januvia -] 100 mg PO DAILY@0700 #30 ud 03/21/18 metFORMIN HCL [Glucophage -] 1,000 mg PO BID@0700,1630 #60 tablet 03/21/18 Valacyclovir HCl [Valtrex -] 1,000 mg PO TID 4 Days #12 tablet 03/25/18 levoFLOXacin [Levaquin -] 500 mg PO DAILY #4 tablet 03/25/18
--- NOTE | 2018-03-25 17:14 | CON.GI ---
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 Pt is being discharged today. Came to see patient she left. - Past Medical History Cardio/Vascular: Yes: HTN, Hyperlipdemia, Other (VPCs) Pulmonary: Yes: Asthma Gastrointestinal: Yes: GERD, Other (Hepatomegaly) Psych: Yes: Anxiety Endocrine: Yes: Diabetes Mellitus - Past Surgical History Past Surgical History: Yes: - Alcohol/Substance Use Hx Alcohol Use: No History of Substance Use: reports: None - Smoking History Smoking history: Unknown if ever smoked Have you smoked in the past 12 months: No Aproximately how many cigarettes per day: 0 - Social History Usual Living Arrangement: With Child ADL: Independent History of Recent Travel: No Home Medications - Allergies Allergies/Adverse Reactions: Allergies Allergy/AdvReac Type Severity Reaction Status Date / Time Penicillins Allergy Intermediate Rash Verified 03/16/18 14:30 morphine Allergy Mild Rash Uncoded 03/16/18 14:30 - Home Medications Home Medications: Ambulatory Orders Albuterol Sulfate Inhaler - [Ventolin HFA Inhaler -] 1 - 2 inh PO QID 07/21/15 Aspirin [ASA -] 81 mg PO DAILY 07/21/15 Loratadine [Claritin -] 10 mg PO DAILY #30 tablet 12/07/15 Folic Acid 1 mg PO DAILY 12/10/16 Metoclopramide HCl 5 mg PO PRN PRN 12/10/16 Omeprazole 40 mg PO DAILY 12/10/16 Metoprolol Tartrate [Lopressor -] 50 mg PO BID 01/05/18 Gabapentin [Neurontin] 300 mg PO HS 03/16/18 Icosapent Ethyl [Vascepa] 1 gm PO BID 03/16/18 Losartan/Hydrochlorothiazide [Losartan-Hctz 100-25 mg Tab] 1 each PO DAILY 03/16 Meclizine HCl 25 mg PO HS PRN 03/16/18 Meloxicam 5 mg PO TID 03/16/18 Mirtazapine 30 mg PO HS 03/16/18 Rosuvastatin Calcium [Crestor] 10 mg PO DAILY 03/16/18 Amlodipine Besylate [Norvasc -] 5 mg PO DAILY #30 tablet 03/21/18 Budesonide/Formeterol Fumarate [SYMBICORT 160/4.5mcg -] 1 inh PO BID #1 cannister 03/21/18 Guaifenesin Dm [Mucinex Dm -] 2 tablet PO BID #20 tab.er.12h 03/21/18 Montelukast Na [Singulair -] 10 mg PO HS #30 tablet 03/21/18 Prednisone 10 mg PO ASDIR #32 tablet 03/21/18 Sitagliptin Phosphate [Januvia -] 100 mg PO DAILY@0700 #30 ud 03/21/18 metFORMIN HCL [Glucophage -] 1,000 mg PO BID@0700,1630 #60 tablet 03/21/18 Valacyclovir HCl [Valtrex -] 1,000 mg PO TID 4 Days #12 tablet 03/25/18 levoFLOXacin [Levaquin -] 500 mg PO DAILY #4 tablet 03/25/18 Family Disease History - Family Disease History Family Disease History: CA: Mother (Bladder) Physical Exam-GI Vital Signs: Vital Signs Temperature 98.2 F 03/25/18 14:47 Pulse Rate 68 03/25/18 14:47 Respiratory Rate 18 03/25/18 14:47 Blood Pressure 107/49 L 03/25/18 14:47 O2 Sat by Pulse Oximetry (%) 98 03/25/18 09:00 Labs: CBC, BMP 03/24/18 07:20 03/24/18 07:20
== END 2018-03-25 17:45 | disposition home or self-care (01) | DRG 690 ==
LOC: JER 15:12 → JERBED 23:23 → J5S 03-23 01:26
PROVIDERS: ADMIT Internal Medicine; ATTEND Family Medicine
DX: N12 Tubulo-interstitial nephritis, not specified as acute or chronic (principal); J98.11 Atelectasis; I25.10 Atherosclerotic heart disease of native coronary artery without angina pectoris; E11.9 Type 2 diabetes mellitus without complications; M54.9 Dorsalgia, unspecified; R21 Rash and other nonspecific skin eruption; D72.829 Elevated white blood cell count, unspecified; K21.9 Gastro-esophageal reflux disease without esophagitis; E78.5 Hyperlipidemia, unspecified; J45.909 Unspecified asthma, uncomplicated; I10 Essential (primary) hypertension
CPT/HCPCS: 36415; 71275-TC; 72148-TC; 74174-TC; 76705-TC; 80048; 80053; 81003; 81015; 82962; 83605; 83690; 84484; 85025; 87040; 87086; 87186; 93005; 93010; 99284-25; J0131; J7030

== ENCOUNTER 2018-08-21 12:49 | Emergency (ER) | payer OTHER ==
[2018-08-21 12:59] VITALS: TEMP 98.4; BMI 28.3
[2018-08-21] MEDS ORDERED: morphine CARPU-JECT 4 MG/1 ML DISP.SYRIN IVPUSH ONE (13:08)
[2018-08-21] MEDS ORDERED: ONDANSETRON 4 MG/2 ML VIAL IVPUSH ONE (13:08)
[2018-08-21] MEDS ORDERED: SODIUM CHLORIDE 1,000 ML IV STA ×2 (13:08→17:42)
[2018-08-21] MEDS ORDERED: morphine SULFATE 4 MG/ML VIAL ONE (13:25)
[2018-08-21] MEDS ORDERED: ONDANSETRON 4 MG/2 ML VIAL ONE (13:26)
[2018-08-21 13:37] LABS: BASO % 0.3 % (0-2.0); EOS % 0.3 % (0-4.5); HEMATOCRIT 37.9 % (32.4-45.2); HEMOGLOBIN 12.2 GM/dL (10.7-15.3); LYMPH % 10.3 % (8-40); MCH 24.2 pg (25.7-33.7); MCHC 32.1 g/dl (32.0-36.0); MEAN CELL VOLUME 75.5 fl (80-96); MEAN PLT VOLUME 6.9 fl (7.5-11.1); MONO % 6.7 % (3.8-10.2); NEUT % 82.4 % (42.8-82.8); PLATELET COUNT 414 K/MM3 (134-434); RBC 5.02 M/mm3 (3.60-5.2); RDW 15.5 % (11.6-15.6); WHITE BLOOD COUNT 13.3 K/mm3 (4.0-10.0)
[2018-08-21 13:50] LABS: PROTHROMBIN TIME (PATIENT) 11.8 SEC (9.7-13.0)
[2018-08-21] MEDS ORDERED: ACETAMINOPHEN 1000 MG/100 ML VIAL (NON FORMULARY) IVPB ONE (13:59)
[2018-08-21] MEDS ORDERED: HYDROmorphone HCL CARPU-JECT 2 MG/1 ML DISP.SYRIN IVPUSH ONE (14:02)
[2018-08-21 14:05] LABS: ALBUMIN 3.8 g/dl (3.4-5.0); ALK PHOS 89 U/L (45-117); ANION GAP 7 MMOL/L (8-16); BILIRUBIN,TOTAL 0.3 mg/dL (0.2-1); BLOOD UREA NITROGEN 14 mg/dL (7-18); CALCIUM 9.3 mg/dL (8.5-10.1); CHLORIDE 105 mmol/L (98-107); CO2 26 mmol/L (21-32); CREATININE 0.9 mg/dL (0.55-1.3); GLUCOSE,RANDOM 147 mg/dL (74-106); LIPASE 139 U/L (73-393); POTASSIUM 3.8 mmol/L (3.5-5.1); SGOT/AST 19 U/L (15-37); SGPT/ALT 28 U/L (13-61); SODIUM 139 mmol/L (136-145)
--- NOTE | 2018-08-21 14:11 | PDOC ---
History of Present Illness - General History Source: Patient - History of Present Illness Initial Comments: 08/21/18 14:04 Patient is a 68F with history of HTN, DM, HLD, asthma, hypothyroidism, c- section here today complaining of abdominal pain that radiates to her back that started today. Pain is worse in the RUQ. Endorses nausea and loose bowel movements. Denies dysuria. Denies chest pain and shortness of breath. Denies history of blood clots, leg swelling, recent travel. Denies history of gallbladder disease. <Josh Tomas - Last Filed: 08/21/18 19:30> <Grazyna Gibbs - Last Filed: 08/21/18 19:40> - General Chief Complaint: Pain Stated Complaint: Pain Time Seen by Provider: 08/21/18 13:03 Past History - Past Medical History Anemia: No Asthma: Yes Cancer: No Cardiac Disorders: Yes (palpitations, CAD) CVA: No COPD: No CHF: No Dementia: No Diabetes: Yes GI Disorders: Yes (GERD) Disorders: Yes (BLADDER PROBLEMS) HTN: Yes Hypercholesterolemia: Yes Liver Disease: Yes (INFLAMMED LIVER/ FATTY LIVER) Seizures: No Thyroid Disease: No - Immunization History Immunization Up to Date: Yes - Suicide/Smoking/Psychosocial Hx Smoking Status: No Smoking History: Never smoked Have you smoked in the past 12 months: No Number of Cigarettes Smoked Daily: 0 Hx Alcohol Use: No Drug/Substance Use Hx: No Substance Use Type: Alcohol Hx Substance Use Treatment: No <Josh Tomas - Last Filed: 08/21/18 19:30> <Grazyna Gibbs - Last Filed: 08/21/18 19:40> - Past Medical History Allergies/Adverse Reactions: Allergies Allergy/AdvReac Type Severity Reaction Status Date / Time Penicillins Allergy Intermediate Rash Verified 08/21/18 14:51 morphine Allergy Mild Rash Uncoded 08/21/18 14:51 Home Medications: Ambulatory Orders Albuterol Sulfate Inhaler - [Ventolin HFA Inhaler -] 1 - 2 inh PO QID 07/21/15 Aspirin [ASA -] 81 mg PO DAILY 07/21/15 Loratadine [Claritin -] 10 mg PO DAILY #30 tablet 12/07/15 Folic Acid 1 mg PO DAILY 12/10/16 Metoclopramide HCl 5 mg PO PRN PRN 12/10/16 Omeprazole 40 mg PO DAILY 12/10/16 Metoprolol Tartrate [Lopressor -] 50 mg PO BID 01/05/18 Gabapentin [Neurontin] 300 mg PO HS 03/16/18 Icosapent Ethyl [Vascepa] 1 gm PO BID 03/16/18 Losartan/Hydrochlorothiazide [Losartan-Hctz 100-25 mg Tab] 1 each PO DAILY 03/16 Meclizine HCl 25 mg PO HS PRN 03/16/18 Meloxicam 5 mg PO TID 03/16/18 Mirtazapine 30 mg PO HS 03/16/18 Rosuvastatin Calcium [Crestor] 10 mg PO DAILY 03/16/18 Amlodipine Besylate [Norvasc -] 5 mg PO DAILY #30 tablet 03/21/18 Budesonide/Formeterol Fumarate [SYMBICORT 160/4.5mcg -] 1 inh PO BID #1 cannister 03/21/18 Guaifenesin Dm [Mucinex Dm -] 2 tablet PO BID #20 tab.er.12h 03/21/18 Montelukast Na [Singulair -] 10 mg PO HS #30 tablet 03/21/18 Prednisone 10 mg PO ASDIR #32 tablet 03/21/18 Sitagliptin Phosphate [Januvia -] 100 mg PO DAILY@0700 #30 ud 03/21/18 metFORMIN HCL [Glucophage -] 1,000 mg PO BID@0700,1630 #60 tablet 03/21/18 Valacyclovir HCl [Valtrex -] 1,000 mg PO TID 4 Days #12 tablet 03/25/18 levoFLOXacin [Levaquin -] 500 mg PO DAILY #4 tablet 03/25/18 Review of Systems - Review of Systems Able to Perform ROS?: Yes Comments:: 08/21/18 14:06 GENERAL/CONSTITUTIONAL: No fever or chills. No weakness. HEAD, EYES, EARS, NOSE AND THROAT: No change in vision. No sore throat. CARDIOVASCULAR: No chest pain or shortness of breath RESPIRATORY: No cough, wheezing, or hemoptysis. GASTROINTESTINAL: +nausea, NO vomiting, +diarrhea NO constipation. GENITOURINARY: No dysuria, frequency, or change in urination. MUSCULOSKELETAL: No joint or muscle swelling or pain. No neck or back pain. SKIN: No rash NEUROLOGIC: No headache, vertigo, loss of consciousness, or change in strength/ sensation. HEMATOLOGIC/LYMPHATIC: No anemia, easy bleeding, or history of blood clots. ALLERGIC/IMMUNOLOGIC: No hives or skin allergy. <Josh Tomas - Last Filed: 08/21/18 19:30> *Physical Exam - Vital Signs Last Vital Signs Temp Pulse Resp BP Pulse Ox 98.4 F 119 H 20 161/75 100 08/21/18 12:57 08/21/18 12:57 08/21/18 12:57 08/21/18 12:57 08/21/18 12:57 - Physical Exam Comments: 08/21/18 14:07 GENERAL: Awake, alert, and fully oriented, laying on side in bed HEAD: No signs of trauma, normocephalic, atraumatic EYES: PERRLA, EOMI, sclera anicteric, conjunctiva clear ENT: Auricles normal inspection, hearing grossly normal, nares patent, oropharynx clear without exudates. Moist mucosa NECK: Normal ROM, supple, no lymphadenopathy, JVD, or masses LUNGS: No distress, speaks full sentences, clear to auscultation bilaterally HEART: Regular rate and rhythm, normal S1 and S2, no murmurs, rubs or gallops, peripheral pulses normal and equal bilaterally. ABDOMEN: Soft, RUQ tender, normoactive bowel sounds. No guarding, no rebound. No masses EXTREMITIES: Normal inspection, Normal range of motion, no edema. No clubbing or cyanosis. NEUROLOGICAL: Cranial nerves II through XII grossly intact. Normal speech, no focal sensorimotor deficits SKIN: Warm, Dry, normal turgor, no rashes or lesions noted. <Josh Tomas - Last Filed: 08/21/18 19:30> - Vital Signs Last Vital Signs Temp Pulse Resp BP Pulse Ox 98.4 F 93 H 18 152/78 100 08/21/18 12:57 08/21/18 16:55 08/21/18 16:55 08/21/18 16:55 08/21/18 16:55 <Grazyna Gibbs - Last Filed: 08/21/18 19:40> ED Treatment Course - LABORATORY CBC & Chemistry Diagram: 08/21/18 13:20 08/21/18 13:20 - ADDITIONAL ORDERS Additional order review: Laboratory Results 08/21/18 13:20 PT with INR 11.80 INR 1.00 08/21/18 13:20 RBC 5.02 MCV 75.5 L MCHC 32.1 RDW 15.5 MPV 6.9 L Neutrophils % 82.4 D Lymphocytes % 10.3 D Monocytes % 6.7 Eosinophils % 0.3 Basophils % 0.3 - RADIOLOGY Radiology Studies Ordered: Category Date Time Status ABDOMEN & PELVIS CT WITH CONTR [CT] Stat CT Scan 08/21/18 13:55 Ordered - Medications Given in the ED: ED Medications Discontinued Medications Generic Name Dose Route Start Last Admin Trade Name Freq PRN Reason Stop Dose Admin Morphine Sulfate 4 mg 08/21/18 13:08 08/21/18 13:32 Morphine Injection - IVPUSH 08/21/18 13:09 Not Given ONCE ONE Ondansetron HCl 4 mg 08/21/18 13:08 08/21/18 13:32 Zofran Injection IVPUSH 08/21/18 13:09 4 mg ONCE ONE Administration <Josh Tomas - Last Filed: 08/21/18 19:30> - LABORATORY CBC & Chemistry Diagram: 08/21/18 13:20 08/21/18 13:20 - ADDITIONAL ORDERS Additional order review: Laboratory Results 08/21/18 08/21/18 08/21/18 17:22 13:20 13:20 PT with INR INR Sodium 139 Potassium 3.8 Chloride 105 Carbon Dioxide 26 Anion Gap 7 L BUN 14 Creatinine 0.9 Est GFR (CKD-EPI)AfAm 76.68 Est GFR (CKD-EPI)NonAf 66.16 Random Glucose 147 H Calcium 9.3 Total Bilirubin 0.3 AST 19 ALT 28 Alkaline Phosphatase 89 Creatine Kinase 110 Troponin I < 0.02 Total Protein 8.0 Albumin 3.8 Lipase 139 Urine Color Yellow Urine Appearance Clear Urine pH 7.0 Ur Specific [place] 1.059 H Urine Protein Negative Urine Glucose (UA) Negative Urine Ketones Negative Urine Blood Negative Urine Nitrite Negative Urine Bilirubin Negative Urine Urobilinogen 0.2 Ur Leukocyte Esterase Negative Blood Type O POSITIVE Antibody Screen Negative 08/21/18 13:20 PT with INR 11.80 INR 1.00 Sodium Potassium Chloride Carbon Dioxide Anion Gap BUN Creatinine Est GFR (CKD-EPI)AfAm Est GFR (CKD-EPI)NonAf Random Glucose Calcium Total Bilirubin AST ALT Alkaline Phosphatase Creatine Kinase Troponin I Total Protein Albumin Lipase Urine Color Urine Appearance Urine pH Ur Specific [place] Urine Protein Urine Glucose (UA) Urine Ketones Urine Blood Urine Nitrite Urine Bilirubin Urine Urobilinogen Ur Leukocyte Esterase Blood Type Antibody Screen 08/21/18 13:20 RBC 5.02 MCV 75.5 L MCHC 32.1 RDW 15.5 MPV 6.9 L Neutrophils % 82.4 D Lymphocytes % 10.3 D Monocytes % 6.7 Eosinophils % 0.3 Basophils % 0.3 - Medications Given in the ED: ED Medications Discontinued Medications Generic Name Dose Route Start Last Admin Trade Name Freq PRN Reason Stop Dose Admin Acetaminophen 1,000 mg 08/21/18 13:59 08/21/18 15:05 Ofirmev Injection - IVPB 08/21/18 14:00 1,000 mg ONCE ONE Administration Hydromorphone HCl 0.5 mg 08/21/18 14:02 08/21/18 15:06 Dilaudid Injection - IVPUSH 08/21/18 14:03 0.5 mg ONCE ONE Administration Sodium Chloride 1,000 mls @ 1,000 mls/hr 08/21/18 13:08 08/21/18 13:32 Normal Saline - IV 08/21/18 14:07 1,000 mls/hr ASDIR STA Administration Sodium Chloride 1,000 mls @ 1,000 mls/hr 08/21/18 17:42 08/21/18 18:02 Normal Saline - IV 08/21/18 18:41 1,000 mls/hr ASDIR STA Administration Morphine Sulfate 4 mg 08/21/18 13:08 08/21/18 13:32 Morphine Injection - IVPUSH 08/21/18 13:09 Not Given ONCE ONE Ondansetron HCl 4 mg 08/21/18 13:08 08/21/18 13:32 Zofran Injection IVPUSH 08/21/18 13:09 4 mg ONCE ONE Administration <Grazyna Gibbs - Last Filed: 08/21/18 19:40> Medical Decision Making - Medical Decision Making 08/21/18 14:07 Patient is 68F here today with RUQ abdominal pain radiating to back. Vitals notable for tachycardia. EKG shows sinus tachycardia with rate of 114. No st elevations/depressions. Normal axis. Normal intervals. No significant t wave abnormalities. POCUS shows grossly normal gallbladder. DDx includes, but is not limited to: pyelonephritis, nephrolithiasis, pancreatitis. Will evaluate with cbc, cmp, trop, pt/inr, ekg, lipase. Fluids given. Patient had local reaction to morphine before. Given dilaudid and iv tylenol. Will do CT a/p considering normal POCUS. 08/21/18 19:30 CBC shows small leukocytosis. CMP reassuring. Trop negative. HR now 94, temp 99.6. CT A/P shows no acute abnormalities. Patient tolerating PO, but still having some pain. Given return precautions and GI follow up. freelance interpreter/translator used. <Josh Tomas - Last Filed: 08/21/18 19:30> *DC/Admit/Observation/Transfer - Discharge Dispostion Decision to Admit order: No <Josh Tomas - Last Filed: 08/21/18 19:30> <Grazyna Gibbs - Last Filed: 08/21/18 19:40> Diagnosis at time of Disposition: Abdominal pain - Discharge Dispostion Disposition: HOME Condition at time of disposition: Good - Referrals Referrals: Karissa Ortiz MD [Primary Care Provider] - Jovana Moon MD [Staff Physician] - - Patient Instructions Printed Discharge Instructions: DI for Abdominal Pain-Adult Additional Instructions: Please follow up with the GI doctor below this week. Please return if you have any new, worsening or concerning symptoms, especially increasing pain, fever and vomiting. Por favor charlie un seguimiento con el mdico de GI a continuacin esta semana. Regrese si tiene algn sntoma nuevo, que empeora o que se relaciona con l, especialmente el aumento del dolor, la fiebre y los vmitos. Print Language: OMANI - Post Discharge Activity
--- NOTE | 2018-08-21 14:32 | PDOC ---
Documentation entered by Louise Arceo SCRIBE, acting as scribe for Rajendra Morrison MD. Rajendra Morrison MD: This documentation has been prepared by the Adis martin Amanda, SCRIBE, under my direction and personally reviewed by me in its entirety. I confirm that the documentation accurately reflects all work, treatment, procedures, and medical decision making performed by me. Attending Attestation - Resident Resident Name: Josh Tomas - ED Attending Attestation I have performed the following: I have examined & evaluated the patient, The case was reviewed & discussed with the resident, I agree w/resident's findings & plan - HPI HPI: 08/21/18 14:17 Patient is a 68 year old female with a significant past medical history of HTN, DM, HLD, asthma, hypothyroidism, kidney stones, who presents to the ED today complaining of right upper abdominal pain radiating to her back today. She also reports associated nausea and nonbloody diarrhea. She denies dysuria. Denies chest pain and shortness of breath. Denies history of blood clots, leg swelling, recent travel. Denies history of gallbladder disease. Has h/o gastritis/?PUD on egd in the past with Dr. Stafford, maintained on PPI. - Physicial Exam PE: 08/21/18 14:27 Vital signs are within normal limits, afebrile, slight tachycardia secondary to pain No jaundice or pallor Heart is regular, lungs are clear Abdomen soft/nondistended. Diffuse tenderness without focal guarding or rebound , exquisite right CVA tenderness No rash No hernias - Medical Decision Making 08/21/18 14:29 68-year-old female with acute onset right upper/flank abdominal pain radiating to right shoulder, associated with nausea. Right CVA tenderness on exam, history of kidney stones. Presentation seems most consistent with nephrolithiasis, rule out pyelonephritis or cholelithiasis/pancreatitis. Labs, urinalysis Pain control CT imaging IV fluids Reassess 08/21/18 16:29 wbc 13, remaining labs wnl. UA pending ctap without acute pathology, ? pyelo reassess Heart Score/ECG Review #1 ECG reviewed & interpreted by me at: 13:04 General ECG Interpretation: Sinus Rhythm, Normal Rate (tachy 114), Normal Intervals (qtc 441), No acute ischemic changes
[2018-08-21] MEDS ORDERED: ACETAMINOPHEN INJECTION 100 ML IVPB ONE (14:46)
[2018-08-21] MEDS ORDERED: HYDROmorphone HCl 2 MG/ML VIAL ONE (14:46)
[2018-08-21 18:50] LABS: URINE APPEARANCE CLEAR; URINE COLOR YELLOW
[2018-08-21 18:51] LABS: URINE BILIRUBIN NEGATIVE (NEGATIVE); URINE GLUCOSE (UA) NEGATIVE (NEGATIVE); URINE KETONE NEGATIVE (NEGATIVE); URINE LEUK ESTERASE NEGATIVE (NEGATIVE); URINE NITRITE NEGATIVE (NEGATIVE); URINE PROTEIN NEGATIVE (NEGATIVE); URINE UROBILINOGEN 0.2 mg/dL (0.2-1.0)
[2018-08-21 19:51] VITALS: BP 120/63; PULSE 99
--- NOTE | 2018-08-22 15:01 | EKG ---
Test Reason : Blood Pressure : / mmHG Vent. Rate : 114 BPM Atrial Rate : 114 BPM P-R Int : 164 ms QRS Dur : 076 ms QT Int : 320 ms P-R-T Axes : 063 -15 065 degrees QTc Int : 441 ms SINUS TACHYCARDIA Confirmed by NATHANIEL LAM MD ([id number]) on 08/22/2018 3:01:24 PM Referred By: Confirmed By:NATHANIEL LAM MD
== END 2018-08-21 19:51 | disposition home or self-care (01) ==
LOC: JER 12:49
PROC: 3E0337Z Introduction of Electrolytic and Water Balance Substance into Peripheral Vein, Percutaneous Approach (ICD-10-PCS; principal; 2018-08-21)
PROC: 3E033NZ Introduction of Analgesics, Hypnotics, Sedatives into Peripheral Vein, Percutaneous Approach (ICD-10-PCS; 2018-08-21)
PROC: 3E033NZ Introduction of Analgesics, Hypnotics, Sedatives into Peripheral Vein, Percutaneous Approach (ICD-10-PCS; 2018-08-21)
PROC: 3E033GC Introduction of Other Therapeutic Substance into Peripheral Vein, Percutaneous Approach (ICD-10-PCS; 2018-08-21)
PROC: BF42ZZZ Ultrasonography of Gallbladder (ICD-10-PCS; 2018-08-21)
DX: R10.9 Unspecified abdominal pain (principal); I10 Essential (primary) hypertension; E78.5 Hyperlipidemia, unspecified; E11.9 Type 2 diabetes mellitus without complications; Z79.84 Long term (current) use of oral hypoglycemic drugs; E03.9 Hypothyroidism, unspecified; J45.909 Unspecified asthma, uncomplicated; Z87.442 Personal history of urinary calculi
CPT/HCPCS: 36415; 74177-TC; 80053; 81003; 82550; 83690; 84484; 85025; 85610; 86850; 86900; 86901; 93005; 93010; 99283-25; J0131; J7030

== ENCOUNTER 2019-01-15 14:12 | Emergency (ER) | payer OTHER ==
[2019-01-15 14:24] VITALS: BP 125/63; PULSE 71; TEMP 98.1; BMI 62.4
--- NOTE | 2019-01-15 14:38 | PDOC ---
History of Present Illness - General Chief Complaint: Pain, Acute Stated Complaint: RT KNEE PAIN Time Seen by Provider: 01/15/19 14:16 History Source: Patient Exam Limitations: No Limitations - History of Present Illness Initial Comments: 01/15/19 14:55 Chief complaint: Knee pain Patient is a 68-year-old female with history of hypertension, elevated cholesterol, right shoulder chronic pain, diabetes who states that she went to get up yesterday and she is started having right knee pain. Patient is able to ambulate. She has no fever, no swelling and she has some pain when ambulating. GENERAL/CONSTITUTIONAL: No fever, weakness. dizziness HEAD, EYES, EARS, NOSE AND THROAT: No change in vision. No ear pain or discharge. No sore throat. CARDIOVASCULAR: No chest pain RESPIRATORY: No shortness of breath or cough GASTROINTESTINAL: No pain, nausea, vomiting, diarrhea or constipation GENITOURINARY: No dysuria MUSCULOSKELETAL: No neck or back pain, +right knee SKIN: No rash NEUROLOGIC: No headache, vertigo, loss of consciousness, or loss of sensation. GENERAL: The patient is awake, alert, and fully oriented, in no acute distress. HEAD: Normal with no signs of trauma. EYES: Pupils equal, round and reactive to light, sclera anicteric, conjunctiva clear. ENT: pharynx: no erythema, no exudate, uvula midline NECK: supple CHEST: clear, nontender, rr ABD: soft, nontender BACK: no tenderness or signs of injury EXTREMITIES: Right knee: No deformity, full range of motion, mild tenderness along the underside of the patella, neurovascular intact. No swelling, no erythema. Rest of extremities, normal range of motion, no edema. NEUROLOGICAL: Normal speech, normal gait. SKIN: Warm, Dry Past History - Past Medical History Allergies/Adverse Reactions: Allergies Allergy/AdvReac Type Severity Reaction Status Date / Time Penicillins Allergy Intermediate Rash Verified 08/21/18 14:51 morphine Allergy Mild Rash Uncoded 08/21/18 14:51 Home Medications: Ambulatory Orders Albuterol Sulfate Inhaler - [Ventolin HFA Inhaler -] 1 - 2 inh PO QID 07/21/15 Aspirin [ASA -] 81 mg PO DAILY 07/21/15 Loratadine [Claritin -] 10 mg PO DAILY #30 tablet 12/07/15 Folic Acid 1 mg PO DAILY 12/10/16 Metoclopramide HCl 5 mg PO PRN PRN 12/10/16 Omeprazole 40 mg PO DAILY 12/10/16 Metoprolol Tartrate [Lopressor -] 50 mg PO BID 01/05/18 Gabapentin [Neurontin] 300 mg PO HS 03/16/18 Icosapent Ethyl [Vascepa] 1 gm PO BID 03/16/18 Losartan/Hydrochlorothiazide [Losartan-Hctz 100-25 mg Tab] 1 each PO DAILY 03/16 Meclizine HCl 25 mg PO HS PRN 03/16/18 Meloxicam 5 mg PO TID 03/16/18 Mirtazapine 30 mg PO HS 03/16/18 Rosuvastatin Calcium [Crestor] 10 mg PO DAILY 03/16/18 Amlodipine Besylate [Norvasc -] 5 mg PO DAILY #30 tablet 03/21/18 Budesonide/Formeterol Fumarate [SYMBICORT 160/4.5mcg -] 1 inh PO BID #1 cannister 03/21/18 Guaifenesin Dm [Mucinex Dm -] 2 tablet PO BID #20 tab.er.12h 03/21/18 Montelukast Na [Singulair -] 10 mg PO HS #30 tablet 03/21/18 Prednisone 10 mg PO ASDIR #32 tablet 03/21/18 Sitagliptin Phosphate [Januvia -] 100 mg PO DAILY@0700 #30 ud 03/21/18 metFORMIN HCL [Glucophage -] 1,000 mg PO BID@0700,1630 #60 tablet 03/21/18 Valacyclovir HCl [Valtrex -] 1,000 mg PO TID 4 Days #12 tablet 03/25/18 levoFLOXacin [Levaquin -] 500 mg PO DAILY #4 tablet 03/25/18 Oxycodone HCl/Acetaminophen [Percocet 5-325 mg Tablet] 1 tab PO Q6H #12 tablet MDD 4 01/15/19 Anemia: No Asthma: Yes Cancer: No Cardiac Disorders: Yes (palpitations, CAD) CVA: No COPD: No CHF: No Dementia: No Diabetes: Yes GI Disorders: Yes (GERD) Disorders: Yes (BLADDER PROBLEMS) HTN: Yes Hypercholesterolemia: Yes Liver Disease: Yes (INFLAMMED LIVER/ FATTY LIVER) Seizures: No Thyroid Disease: No - Immunization History Immunization Up to Date: Yes - Psycho Social/Smoking Cessation Hx Smoking Status: No Smoking History: Never smoked Have you smoked in the past 12 months: No Number of Cigarettes Smoked Daily: 0 Information on smoking cessation initiated: No Hx Alcohol Use: No Drug/Substance Use Hx: No Substance Use Type: Alcohol Hx Substance Use Treatment: No *Physical Exam - Vital Signs Last Vital Signs Temp Pulse Resp BP Pulse Ox 98.1 F 71 16 125/63 97 01/15/19 14:22 01/15/19 14:22 01/15/19 14:22 01/15/19 14:22 01/15/19 14:22 Medical Decision Making - Medical Decision Making 01/15/19 14:57 68-year-old female with hypertension, elevated cholesterol, diabetes who states she got up and now she has right knee pain that started yesterday. Patient is already on meloxicam every day for her shoulder. Patient has no concerning clinical findings that necessitate imaging in the ER. Patient has an orthopedist. Patient will be given breakthrough pain medicine. Discussed issues, findings, results, applicable medications and treatments and follow-up. All these were understood and all questions were answered Discharge - Discharge Information Problems reviewed: Yes Clinical Impression/Diagnosis: Knee pain, right Qualifiers: Chronicity: acute Qualified Code(s): M25.561 - Pain in right knee Condition: Stable Disposition: HOME - Additional Discharge Information Prescriptions: Oxycodone HCl/Acetaminophen [Percocet 5-325 mg Tablet] 1 tab PO Q6H #12 tablet MDD 4 - Follow up/Referral Referrals: Dwain Wagner MD [Staff Physician] - - Patient Discharge Instructions Patient Printed Discharge Instructions: DI for Knee Pain Additional Instructions: Continue your regular medications including the meloxicam. You can take the Percocet 1 tablet every 6 hours as needed in addition for pain control. It is very important for you to call your orthopedist today to make an appointment for further evaluation. Return to the ER if fever, swelling, redness or getting sicker or severe pain - Post Discharge Activity
== END 2019-01-15 14:51 | disposition home or self-care (01) ==
LOC: JERFT 14:12
DX: M25.561 Pain in right knee (principal); I25.10 Atherosclerotic heart disease of native coronary artery without angina pectoris; I10 Essential (primary) hypertension; E11.9 Type 2 diabetes mellitus without complications; Z79.84 Long term (current) use of oral hypoglycemic drugs; J45.909 Unspecified asthma, uncomplicated; Z88.0 Allergy status to penicillin; Z88.5 Allergy status to narcotic agent; K21.9 Gastro-esophageal reflux disease without esophagitis; Z87.448 Personal history of other diseases of urinary system; Z87.19 Personal history of other diseases of the digestive system
CPT/HCPCS: 99282-25

== ENCOUNTER 2019-01-30 06:04 | Day surgery (SDC) | payer OTHER ==
[2019-01-29 13:52] VITALS: BMI 26.6
[2019-01-30] MEDS ORDERED: PROPOFOL 20 ML ONE ×2 (07:49)
[2019-01-30] MEDS ORDERED: MIDAZOLAM HCL 2 MG/2 ML SINGLE DOSE VIAL ONE (07:49)
[2019-01-30] MEDS ORDERED: SUCCINYLCHOLINE CHLORIDE 200 MG/10 ML SYRINGE ONE (07:49)
[2019-01-30] MEDS ORDERED: ceFAZolin SODIUM 1 GM VIAL ONE (08:09)
[2019-01-30] MEDS ORDERED: DEXAMETHASONE SOD PHOSPHATE 4 MG/1 ML VIAL ONE (08:10)
[2019-01-30] MEDS ORDERED: KETOROLAC TROMETHAMINE 30 MG/1 ML VIAL ONE (08:20)
[2019-01-30] MEDS ORDERED: ONDANSETRON 4 MG/2 ML VIAL IVPUSH PRN (08:40)
[2019-01-30] MEDS ORDERED: oxyCODONE HCL 5 MG TABLET PO PRN (08:40)
[2019-01-30] MEDS ORDERED: LACTATED RINGERS SOLUTION 1,000 ML IV SCH (08:45)
[2019-01-30] MEDS ORDERED: ALBUTEROL SO4 0.083% IH SOL 2.5 MG/3 ML VIAL.NEB. NEB ONE ×3 (09:23→11:58)
[2019-01-30] MEDS ORDERED: oxyCODONE HCL 5 MG TABLET ONE (10:17)
[2019-01-30] MEDS ORDERED: ONDANSETRON 4 MG/2 ML VIAL ONE (10:20)
[2019-01-30 11:31] VITALS: TEMP 98
[2019-01-30 13:36] VITALS: BP 137/68; PULSE 86
--- NOTE | 2019-02-02 15:51 | OP ---
DATE OF OPERATION: 01/30/2019 PREOPERATIVE DIAGNOSIS: Postmenopausal bleeding. POSTOPERATIVE DIAGNOSIS: Postmenopausal bleeding. PROCEDURE: Dilation and curettage, hysteroscopy. SURGEON: Iamni Berry MD ANESTHESIA: General. COMPLICATIONS: None. ESTIMATED BLOOD LOSS: Less than 5 mL. DESCRIPTION OF PROCEDURE: Patient was taken to the operating room where general anesthesia was administered. Patient was then placed in lithotomy position. She was then prepped and draped in proper sterile fashion. A weighted speculum was placed in the vagina. The anterior lip of the cervix was grasped with a single-tooth tenaculum. The uterus was then sounded to 6 cm. The 5-mm hysteroscope was then gently introduced into the uterine cavity. The cavity was visualized. There was no polyp, no mass noted. Both ostia were visualized. Then the hysteroscope was removed. The cervix was then sequentially dilated with Lima dilators, and a sharp curettage was then performed. When finished, the instruments were removed. The patient was taken out of lithotomy position. She was taken to PACU in stable condition. PATHOLOGY: Endometrial curettings. Sara [id number]
--- NOTE | 2019-02-02 17:46 | PATH ---
Surgical Pathology Report Patient Name: FATIMAH GALDAMEZ [facility]. Rec. #: [id number] /Age/Gender: 1950 (Age: 68) / F Account: [id number] Location: [facility] Taken: 01/30/2019 Received: 01/30/2019 Reported: 02/02/2019 Physicians: Imani Berry M.D. Specimen(s) Received ENDOMETRIAL CURETTINGS Clinical History Postmenopausal bleeding Final Diagnosis ENDOMETRIAL CURETTINGS: FRAGMENTS OF ENDOMETRIAL POLYP. SEPARATE WEAKLY PROLIFERATIVE ENDOMETRIUM. ENDOCERVICAL TISSUE AND SQUAMOUS EPITHELIUM WITH NO SIGNIFICANT PATHOLOGIC CHANGE. Electronically Signed Flaco Philip M.D. Gross Description Received in formalin labeled "endometrial curettings," is a 1.0 x 1.0 x 0.2 cm aggregate of morales-brown soft tissue fragments. The formalin is filtered and the specimen is entirely submitted in one cassette. DL/01/30/2019 saudi/01/30/2019
== END 2019-01-30 13:55 | disposition home or self-care (01) ==
LOC: JASU-SURG 06:04
PROVIDERS: ATTEND Obstetrics & Gynecology
PROC: 0UDB7ZX Extraction of Endometrium, Via Natural or Artificial Opening, Diagnostic (ICD-10-PCS; principal; 2019-01-30 08:13)
PROC: 0UJD8ZZ Inspection of Uterus and Cervix, Via Natural or Artificial Opening Endoscopic (ICD-10-PCS; 2019-01-30 08:13)
DX: N95.0 Postmenopausal bleeding (principal)
CPT/HCPCS: 82962; 88305-TC; 94760

== ENCOUNTER 2019-02-21 12:23 | Emergency (ER) | payer OTHER ==
[2019-02-21 12:35] VITALS: BP 146/77; PULSE 107; TEMP 99.5; BMI 26.6
--- NOTE | 2019-02-21 13:44 | PDOC ---
History of Present Illness - General Chief Complaint: Cold Symptoms Stated Complaint: COUGHING Time Seen by Provider: 02/21/19 12:38 - History of Present Illness Initial Comments: 02/21/19 13:42 68-year-old female with multiple comorbidities presents for cough x2 days she did have a fever last night. Past History - Past Medical History Allergies/Adverse Reactions: Allergies Allergy/AdvReac Type Severity Reaction Status Date / Time Penicillins Allergy Intermediate Rash Verified 02/21/19 12:29 morphine Allergy Mild Rash Uncoded 02/21/19 12:29 Home Medications: Ambulatory Orders Albuterol Sulfate Inhaler - [Ventolin HFA Inhaler -] 1 - 2 inh PO QID 07/21/15 Aspirin [ASA -] 81 mg PO DAILY 07/21/15 Metoclopramide HCl 5 mg PO PRN PRN 12/10/16 Omeprazole 40 mg PO DAILY 12/10/16 Metoprolol Tartrate [Lopressor -] 50 mg PO BID 01/05/18 Gabapentin [Neurontin] 300 mg PO HS 03/16/18 Icosapent Ethyl [Vascepa] 1 gm PO BID 03/16/18 Meclizine HCl 25 mg PO HS PRN 03/16/18 Meloxicam 5 mg PO TID 03/16/18 Mirtazapine 30 mg PO HS 03/16/18 Sitagliptin Phosphate [Januvia -] 100 mg PO DAILY@0700 #30 ud 03/21/18 Dapagliflozin Propanediol [Farxiga] 10 mg PO DAILY 01/30/19 Hydrocortisone Valerate [Westcort 0.2% Cream -] 1 applic TP DAILY 01/30/19 Insulin Glargine,Hum.rec.anlog [Toujeo Max Solostar] 50 unit SQ DAILY 01/30/19 Levothyroxine [Synthroid -] 25 mcg PO DAILY 01/30/19 Meloxicam 15 mg PO DAILY 01/30/19 Metoclopramide HCl 5 mg PO TID 01/30/19 Neomycin/Polymyxn/Hc [Cortisporin Otic Solution -] 1 drop DAILY 01/30/19 Olmesartan/Amlodipin/Hcthiazid [Wubgjsh-Wwblcr-Mutw 40-5-25 mg] 1 each PO DAILY 01/30/19 Guaifenesin [Mucinex] 1,200 mg PO BID #12 tab.er.12h 02/21/19 Anemia: Yes Asthma: Yes Cancer: No Cardiac Disorders: Yes (palpitations, CAD,heart murmur) CVA: No COPD: No CHF: No Dementia: No Diabetes: Yes GI Disorders: Yes (GERD) Disorders: No HTN: Yes Hypercholesterolemia: Yes Liver Disease: Yes (INFLAMMED LIVER/ FATTY LIVER) Seizures: No Thyroid Disease: Yes - Surgical History Abdominal Surgery: No Appendectomy: No Cardiac Surgery: No Cholecystectomy: No Lung Surgery: No Neurologic Surgery: No Orthopedic Surgery: Yes (r open shoulder surgery) - Immunization History Immunization Up to Date: Yes - Psycho Social/Smoking Cessation Hx Smoking Status: No Smoking History: Never smoked Have you smoked in the past 12 months: No Number of Cigarettes Smoked Daily: 0 Information on smoking cessation initiated: No Hx Alcohol Use: No Drug/Substance Use Hx: No Substance Use Type: Alcohol Hx Substance Use Treatment: No Review of Systems - Review of Systems Constitutional: Yes: Fever Respiratory: Yes: Cough *Physical Exam - Vital Signs Last Vital Signs Temp Pulse Resp BP Pulse Ox 99.5 F 107 H 20 146/77 99 02/21/19 12:31 02/21/19 12:31 02/21/19 12:31 02/21/19 12:31 02/21/19 12:42 - Physical Exam Comments: 02/21/19 13:42 GENERAL: The patient is awake, alert, and fully oriented, in no acute distress. HEAD: Normal with no signs of trauma. EYES: sclera anicteric, conjunctiva clear. ENT: Ears normal NECK: Normal range of motion LUNGS: Breath sounds equal, clear to auscultation bilaterally. No wheezes, and no crackles. HEART: S1 and S2 without murmur, rub or gallop. ABDOMEN: Soft, nontender, normoactive bowel sounds. No guarding, no rebound. No masses. EXTREMITIES: Normal range of motion, no edema. No clubbing or cyanosis. No cords, erythema, or tenderness. NEUROLOGICAL: Cranial nerves II through XII grossly intact. Normal speech, normal gait. PSYCH: Normal mood, normal affect. SKIN: Warm, Dry, normal turgor, no rashes or lesions noted. Medical Decision Making - Medical Decision Making 02/21/19 13:42 Influenza swabs negative and benign examination most likely viral upper respiratory infection supportive care Mucinex follow-up with PCP Discharge - Discharge Information Problems reviewed: Yes Clinical Impression/Diagnosis: Viral URI with cough - Admission No - Follow up/Referral Referrals: Karissa Ortiz MD [Primary Care Provider] - - Patient Discharge Instructions Patient Printed Discharge Instructions: DI for Viral Upper Respiratory Infection -- Adult Additional Instructions: Please take the Mucinex as directed. Return to the emergency room for worsening symptoms. Without fail please follow-up with your primary care physician in 1 to 2 days for further evaluation and treatment options. Your influenza swab today was negative. Tylenol Motrin for fever should you require - Post Discharge Activity
== END 2019-02-21 14:47 | disposition home or self-care (01) ==
LOC: JERFT 12:23
DX: J06.9 Acute upper respiratory infection, unspecified (principal); B97.89 Other viral agents as the cause of diseases classified elsewhere; I25.10 Atherosclerotic heart disease of native coronary artery without angina pectoris; I10 Essential (primary) hypertension; R00.2 Palpitations; R01.1 Cardiac murmur, unspecified; E11.9 Type 2 diabetes mellitus without complications; Z79.4 Long term (current) use of insulin; J45.909 Unspecified asthma, uncomplicated; D64.9 Anemia, unspecified; K21.9 Gastro-esophageal reflux disease without esophagitis; E07.9 Disorder of thyroid, unspecified; K76.0 Fatty (change of) liver, not elsewhere classified; Z88.0 Allergy status to penicillin; Z88.5 Allergy status to narcotic agent
CPT/HCPCS: 87804; 99281-25

== ENCOUNTER 2019-03-16 17:49 | Emergency (ER) | payer OTHER ==
[2019-03-16 18:00] VITALS: BMI 26.6
--- NOTE | 2019-03-16 19:16 | PDOC ---
History of Present Illness - General Chief Complaint: Palpitations Stated Complaint: Palpitations Time Seen by Provider: 03/16/19 18:52 - History of Present Illness Initial Comments: Ms. Jerez is a 68 y/o with PMH significant for HTN, DM, HLD, hypothyroidism, asthma, heart palpitations, presenting today with 1.5 weeks of heart palpitations associated with dizziness. Reports that she has had palpitations before and has had echo/stress test/halter monitor a couple years ago, but that this is the first time she has had associated dizziness. Denies chest pain. Reports mild nausea, denies vomiting. Denies shortness of breath. Denies abdominal pain. Denies dysuria, diarrhea. Denies back pain. Denies leg swelling. Denies headache. Past History - Past Medical History Allergies/Adverse Reactions: Allergies Allergy/AdvReac Type Severity Reaction Status Date / Time Penicillins Allergy Intermediate Rash Verified 03/16/19 18:00 morphine Allergy Mild Rash Uncoded 03/16/19 18:00 Home Medications: Ambulatory Orders Albuterol Sulfate Inhaler - [Ventolin HFA Inhaler -] 1 - 2 inh PO QID 07/21/15 Aspirin [ASA -] 81 mg PO DAILY 07/21/15 Metoclopramide HCl 5 mg PO PRN PRN 12/10/16 Omeprazole 40 mg PO DAILY 12/10/16 Metoprolol Tartrate [Lopressor -] 50 mg PO BID 01/05/18 Gabapentin [Neurontin] 300 mg PO HS 03/16/18 Icosapent Ethyl [Vascepa] 1 gm PO BID 03/16/18 Meclizine HCl 25 mg PO HS PRN 03/16/18 Meloxicam 5 mg PO TID 03/16/18 Mirtazapine 30 mg PO HS 03/16/18 Sitagliptin Phosphate [Januvia -] 100 mg PO DAILY@0700 #30 ud 03/21/18 Dapagliflozin Propanediol [Farxiga] 10 mg PO DAILY 01/30/19 Hydrocortisone Valerate [Westcort 0.2% Cream -] 1 applic TP DAILY 01/30/19 Insulin Glargine,Hum.rec.anlog [Toujeo Max Solostar] 50 unit SQ DAILY 01/30/19 Levothyroxine [Synthroid -] 25 mcg PO DAILY 01/30/19 Meloxicam 15 mg PO DAILY 01/30/19 Metoclopramide HCl 5 mg PO TID 01/30/19 Neomycin/Polymyxn/Hc [Cortisporin Otic Solution -] 1 drop DAILY 01/30/19 Olmesartan/Amlodipin/Hcthiazid [Oueiaax-Abrztk-Zbzy 40-5-25 mg] 1 each PO DAILY 01/30/19 Guaifenesin [Mucinex] 1,200 mg PO BID #12 tab.er.12h 02/21/19 Meclizine HCl [Antivert -] 25 mg PO DAILY PRN #8 tablet 03/17/19 Anemia: Yes Asthma: Yes Cancer: No Cardiac Disorders: Yes (palpitations, CAD,heart murmur) CVA: No COPD: No CHF: No Dementia: No Diabetes: Yes GI Disorders: Yes (GERD) Disorders: No HTN: Yes Hypercholesterolemia: Yes Liver Disease: Yes (INFLAMMED LIVER/ FATTY LIVER) Seizures: No Thyroid Disease: Yes - Surgical History Abdominal Surgery: No Appendectomy: No Cardiac Surgery: No Cholecystectomy: No Lung Surgery: No Neurologic Surgery: No Orthopedic Surgery: Yes (r open shoulder surgery) - Immunization History Immunization Up to Date: Yes - Psycho Social/Smoking Cessation Hx Smoking Status: No Smoking History: Never smoked Have you smoked in the past 12 months: No Number of Cigarettes Smoked Daily: 0 Hx Alcohol Use: No Drug/Substance Use Hx: No Substance Use Type: Alcohol Hx Substance Use Treatment: No Cardiac Specific PMH - Complaint Specific PMHX Pacemaker: No Review of Systems - Review of Systems Comments:: GENERAL/CONSTITUTIONAL: No fever or chills. No weakness._ HEAD, EYES, EARS, NOSE AND THROAT: No change in vision. No change in hearing. No sore throat._ CARDIOVASCULAR: No chest pain or shortness of breath. Reports heart palpitations. RESPIRATORY: Denies cough, hemoptysis_ GASTROINTESTINAL: Reports nausea. No vomiting, diarrhea or constipation._ GENITOURINARY: No dysuria, frequency, or change in urination._ MUSCULOSKELETAL: No joint or muscle swelling or pain. No neck or back pain._ SKIN: No rash_ NEUROLOGIC: Reports dizziness. No headache, loss of consciousness, or change in strength/sensation._ ENDOCRINE: No increased thirst. No abnormal weight change_ HEMATOLOGIC/LYMPHATIC: No anemia, easy bleeding, or history of blood clots._ ALLERGIC/IMMUNOLOGIC: No hives or skin allergy._ *Physical Exam - Vital Signs Last Vital Signs Temp Pulse Resp BP Pulse Ox 97.9 F 74 18 141/87 99 03/17/19 00:47 03/17/19 00:47 03/17/19 00:47 03/17/19 00:47 03/17/19 00:47 - Physical Exam GENERAL: Awake, alert, and oriented to person/place/time, in no acute distress_ HEAD: No signs of trauma, normocephalic, atraumatic _ EYES: PERRLA, EOMI, sclera anicteric, conjunctiva clear_ ENT: Hearing grossly normal, nares patent, oropharynx clear without exudates. No uvular deviation. Moist mucosa. Minimal fluid behind left TM. NECK: Normal ROM, supple, no lymphadenopathy, JVD, or masses_ LUNGS: No distress, speaks in full sentences, clear to auscultation bilaterally _ HEART: Regular rate and rhythm, normal S1 and S2, no murmurs appreciated, peripheral pulses normal and equal bilaterally._ ABDOMEN: Soft, nontender, normoactive bowel sounds. No guarding, no rebound. No masses_ EXTREMITIES: Normal inspection, Normal range of motion, no edema. No clubbing or cyanosis_ NEUROLOGICAL: Cranial nerves II through XII grossly intact. Normal speech, normal gait, no focal sensorimotor deficits _ SKIN: Warm, Dry, normal turgor, no rashes or lesions noted_ ED Treatment Course - LABORATORY CBC & Chemistry Diagram: 03/16/19 20:00 03/16/19 20:00 - ADDITIONAL ORDERS Additional order review: Laboratory Results 03/16/19 03/16/19 03/16/19 23:26 20:00 20:00 PT with INR 11.70 INR 0.99 PTT (Actin FS) 28.4 Sodium 141 Potassium 3.7 Chloride 105 Carbon Dioxide 30 Anion Gap 7 L BUN 13.6 Creatinine 1.1 Est GFR (CKD-EPI)AfAm 60.16 Est GFR (CKD-EPI)NonAf 51.91 Random Glucose 99 Calcium 9.5 Total Bilirubin 0.1 L AST 15 ALT 28 Alkaline Phosphatase 81 Creatine Kinase Creatine Kinase Index CK-MB (CK-2) Troponin I < 0.02 B-Natriuretic Peptide 96.7 Total Protein 7.8 Albumin 3.8 03/16/19 20:00 PT with INR INR PTT (Actin FS) Sodium Potassium Chloride Carbon Dioxide Anion Gap BUN Creatinine Est GFR (CKD-EPI)AfAm Est GFR (CKD-EPI)NonAf Random Glucose Calcium Total Bilirubin AST ALT Alkaline Phosphatase Creatine Kinase 153 Creatine Kinase Index No Result Required. CK-MB (CK-2) < 1.0 Troponin I < 0.02 B-Natriuretic Peptide Total Protein Albumin 03/16/19 20:00 RBC 4.63 MCV 77.3 L MCHC 31.7 L RDW 15.6 MPV 6.7 L Neutrophils % 57.1 D Lymphocytes % 30.4 D Monocytes % 10.0 Eosinophils % 1.5 D Basophils % 1.0 D - RADIOLOGY Radiology Studies Ordered: Category Date Time Status HEAD CT WITHOUT CONTRAST [CT] Stat CT Scan 03/16/19 19:24 Completed CHEST PA & LAT [RAD] Stat Radiology 03/16/19 19:17 Taken - Medications Given in the ED: ED Medications Discontinued Medications Generic Name Dose Route Start Last Admin Trade Name Freq PRN Reason Stop Dose Admin Meclizine HCl 25 mg 03/16/19 23:21 03/16/19 23:30 Antivert - PO 03/16/19 23:22 25 mg ONCE ONE Administration Sodium Chloride 1,000 ml 03/16/19 23:21 03/17/19 00:35 Normal Saline - IV 03/16/19 23:22 Not Given ONCE ONE Medical Decision Making - Medical Decision Making 68F presenting with heart palpitations and associated dizziness, which she hasn' t had with prior palpitation episodes. -cbc, cmp, coags -ekg, trop, cxr -ct head 03/16/19 18:00 EKG shows NSR, 92 bpm, no ST elevation/depression, QTc 435. 03/16/19 21:00 Labs reviewed. Laboratory Tests 03/16/19 03/16/19 03/16/19 20:00 20:00 20:00 WBC 8.6 RBC 4.63 Hgb 11.3 Hct 35.8 MCV 77.3 L MCH 24.5 L MCHC 31.7 L RDW 15.6 Plt Count 385 MPV 6.7 L Absolute Neuts (auto) 4.9 Neutrophils % 57.1 D Lymphocytes % 30.4 D Monocytes % 10.0 Eosinophils % 1.5 D Basophils % 1.0 D Nucleated RBC % 0 PT with INR INR PTT (Actin FS) Sodium 141 Potassium 3.7 Chloride 105 Carbon Dioxide 30 Anion Gap 7 L BUN 13.6 Creatinine 1.1 Est GFR (CKD-EPI)AfAm 60.16 Est GFR (CKD-EPI)NonAf 51.91 Random Glucose 99 Calcium 9.5 Total Bilirubin 0.1 L AST 15 ALT 28 Alkaline Phosphatase 81 Creatine Kinase 153 Creatine Kinase Index No Result Required. CK-MB (CK-2) < 1.0 Troponin I < 0.02 B-Natriuretic Peptide 96.7 Total Protein 7.8 Albumin 3.8 03/16/19 03/16/19 20:00 23:26 WBC RBC Hgb Hct MCV MCH MCHC RDW Plt Count MPV Absolute Neuts (auto) Neutrophils % Lymphocytes % Monocytes % Eosinophils % Basophils % Nucleated RBC % PT with INR 11.70 INR 0.99 PTT (Actin FS) 28.4 Sodium Potassium Chloride Carbon Dioxide Anion Gap BUN Creatinine Est GFR (CKD-EPI)AfAm Est GFR (CKD-EPI)NonAf Random Glucose Calcium Total Bilirubin AST ALT Alkaline Phosphatase Creatine Kinase Creatine Kinase Index CK-MB (CK-2) Troponin I < 0.02 B-Natriuretic Peptide Total Protein Albumin 03/16/19 22:00 CT head shows no acute intracranial pathology or hemorrhage. CXR does not appear to show acute intrathoracic pathology. 03/16/19 23:00 D/w Dr. Jenkins, who is covering for Dr. Samaniego. Discussed the patient's EKG , CXR, negative trop, negative CT head, prior echo/halter monitor/stress test. Dr. Jenkins agrees that patient is stable for d/c home and f/u PCP and cardiology for heart palpitations as outpatient. 03/17/19 00:16 Rpt trop negative. Patient given meclizine for dizziness. Plan to d/c home with PCP and cardiology f/u. Patient verbalized understanding and agreement. All questions answered. Discharge - Discharge Information Problems reviewed: Yes Clinical Impression/Diagnosis: Palpitations Condition: Stable Disposition: HOME - Additional Discharge Information Prescriptions: Meclizine HCl [Antivert -] 25 mg PO DAILY PRN #8 tablet PRN Reason: Vertigo - Follow up/Referral Referrals: Gisela Woodson MD [Primary Care Provider] - Magdiel Samaniego MD [Staff Physician] - - Patient Discharge Instructions Patient Printed Discharge Instructions: DI for Palpitations Additional Instructions: Please take Anti-vert as needed for your dizziness (no more than once every 6 hours). Please make a follow up appointment with your primary care doctor and your court collections officer to address your concern for palpitations. If you experience any new, worsening, or concerning symptoms, including severe chest pain, shortness of breath, loss of consciousness, or any other concerns, please return to the emergency department. Percy Anti-vert segn sea necesario para vernon mareo (no ms de negro vez cada 6 horas ). Devorah negro rob de seguimiento con vernon mdico de atencin primaria y vernon cardilogo para abordar vernon preocupacin por las palpitaciones. Si experimenta algn sntoma nuevo, que empeora o preocupa, que incluye dolor torcico intenso, dificultad para respirar, prdida del conocimiento o cualquier otra inquietud, regrese al departamento de emergencias. - Post Discharge Activity
--- NOTE | 2019-03-16 19:25 | PDOC ---
Documentation entered by Samy Hooks SCRIBE, acting as scribe for Amy Moreno MD. Amy Moreno MD: This documentation has been prepared by the Neva martin Nirvannie, SCRIBE, under my direction and personally reviewed by me in its entirety. I confirm that the documentation accurately reflects all work, treatment, procedures, and medical decision making performed by me. Attending Attestation - Resident Resident Name: Ashish Martini - ED Attending Attestation I have performed the following: I have examined & evaluated the patient, The case was reviewed & discussed with the resident, I agree w/resident's findings & plan - HPI HPI: 03/16/19 19:21 68-year-old female presents because of palpitations for the past 1-1/2 weeks associated with dizziness. She has had palpitations before and has had a prior stress test and Holter monitor because of this. The reason she came in today was that the dizziness is a new symptom that she has not had with her prior episodes of palpitations. She denies any shortness of breath. - Physicial Exam PE: 03/16/19 23:27 Well-nourished well-developed alert 68-year-old female with complaint of palpitations and dizziness Head normocephalic atraumatic eyes eomi lazaro Neck is supple Lungs clear to auscultation cvs [id number] Ears the right TM has a good light reflex, the left TM shows fluid level and is dull Skin warm and dry Abdomen soft nontender Extremities no erythema,no deformities Neuro alert and oriented x3 moving all extremities, no gross focal neuro deficits - Medical Decision Making 03/16/19 21:16 68-year-old female with past medical history of hypertension, diabetes, coronary artery disease, GERD, asthma Past surgical history 03/16/19 21:16 Several years ago she was seen for the same complaint of palpitations and had a Holter monitor and a stress test that were unremarkable 03/16/19 21:23 First troponin is negative Chest x-ray no acute pulmonary disease, no effusions, no consolidations, no infiltrates 03/16/19 22:07 ct scan head no acute intracranial pathology 03/16/19 22:15 pt has c/o positional dizziness now and c/o left ear fullness 03/16/19 23:16 imp palpations,vertigo,L labyrinthitis pt given meclizine ,will send Meclizine RX to pharmacy Case discussed with Dr Jenkins and he is comfortable with discharging the pt home with cardiology outpt followup 03/16/19 23:31
[2019-03-16 20:39] LABS: EOS % 1.5 % (0-4.5); HEMATOCRIT 35.8 % (32.4-45.2); HEMOGLOBIN 11.3 GM/dL (10.7-15.3); LYMPH % 30.4 % (8-40); MCH 24.5 pg (25.7-33.7); MCHC 31.7 g/dl (32.0-36.0); MEAN CELL VOLUME 77.3 fl (80-96); MEAN PLT VOLUME 6.7 fl (7.5-11.1); NEUT % 57.1 % (42.8-82.8); PLATELET COUNT 385 K/MM3 (134-434); RBC 4.63 M/mm3 (3.60-5.2); RDW 15.6 % (11.6-15.6); WHITE BLOOD COUNT 8.6 K/mm3 (4.0-10.0)
[2019-03-16 20:58] LABS: INR 0.99 (0.83-1.09); PROTHROMBIN TIME (PATIENT) 11.7 SEC (9.7-13.0)
[2019-03-16 21:00] LABS: ACTIVATED PTT 28.4 SECONDS (25.2-36.5)
[2019-03-16 21:10] LABS: ALBUMIN 3.8 g/dl (3.4-5.0); BILIRUBIN,TOTAL 0.1 mg/dL (0.2-1); BLOOD UREA NITROGEN 13.6 mg/dL (7-18); CALCIUM 9.5 mg/dL (8.5-10.1); CREATININE 1.1 mg/dL (0.55-1.3); N-TERMINAL BNP 96.7 pg/ml (5-125); POTASSIUM 3.7 mmol/L (3.5-5.1); TOT PROT 7.8 g/dl (6.4-8.2)
[2019-03-16] MEDS ORDERED: MECLIZINE HCL 25 MG TABLET (FP) PO ONE (23:21)
[2019-03-16] MEDS ORDERED: SODIUM CHLORIDE 0.9% 500 ML INFUS.BAG IV ONE (23:21)
[2019-03-16] MEDS ORDERED: MECLIZINE HCL 25 MG TABLET (FP) ONE (23:26)
[2019-03-17 00:48] VITALS: BP 141/87; PULSE 74; TEMP 97.9
--- NOTE | 2019-03-17 09:26 | EKG ---
Test Reason : Blood Pressure : / mmHG Vent. Rate : 092 BPM Atrial Rate : 092 BPM P-R Int : 174 ms QRS Dur : 084 ms QT Int : 352 ms P-R-T Axes : 037 -09 054 degrees QTc Int : 435 ms POOR DATA QUALITY, INTERPRETATION MAY BE ADVERSELY AFFECTED NORMAL SINUS RHYTHM MODERATE VOLTAGE CRITERIA FOR LVH, MAY BE NORMAL VARIANT BORDERLINE ECG WHEN COMPARED WITH ECG OF 21-AUG-2018 13:04, CRITERIA FOR SEPTAL INFARCT ARE NO LONGER PRESENT Confirmed by MD Figueroa, Rey ([id number]) on 03/17/2019 9:26:41 AM Referred By: Confirmed By:Rey Marti MD
== END 2019-03-17 01:07 | disposition home or self-care (01) ==
LOC: JER 17:49
DX: H83.02 Labyrinthitis, left ear (principal); R00.2 Palpitations; I10 Essential (primary) hypertension; E03.9 Hypothyroidism, unspecified; E78.5 Hyperlipidemia, unspecified; E11.9 Type 2 diabetes mellitus without complications; Z79.4 Long term (current) use of insulin; J45.909 Unspecified asthma, uncomplicated; Z88.0 Allergy status to penicillin; Z88.5 Allergy status to narcotic agent
CPT/HCPCS: 36415; 70450-TC; 71046-TC-FY; 80053; 82550; 82553; 83880; 84484; 85025; 85610; 85730; 93005; 93010; 99283-25

== ENCOUNTER 2019-04-08 21:38 | Emergency (ER) | payer OTHER ==
[2019-04-08 21:49] VITALS: BMI 26.5
--- NOTE | 2019-04-08 22:22 | PDOC ---
History of Present Illness - General Chief Complaint: Cold Symptoms Stated Complaint: FEVER Time Seen by Provider: 04/08/19 22:22 - History of Present Illness Initial Comments: HPI: 68yo F with PMH of HTN, HLD, DM, CAD, asthma presenting with flu-like symptoms. Patient's granddaughter is at the bedside providing collateral history. Patient states that she started feeling poorly yesterday. Had a fever of 103 for which she took tylenol. Reporting cough, chest tightness, shortness of breath, headache, nausea, one episode of vomiting, and generalized body aches. Did not get a flu shot this season. Has had poor appetite. No sick contacts or recent travel. ROS: Constitutional: +fever, +chills HEENT: no throat pain, no dysphagia Cardiovascular: +chest pain, no palpitations Respiratory: +cough, +shortness of breath Gastrointestinal: no abdominal pain, +nausea Genitourinary: no dysuria, no hematuria Musculoskeletal: +myalgia, no arthralgia Skin: no rash, no itching Neurologic: +headache, +weakness PE: General: Awake, alert, and fully oriented, appears uncomfortable Head: No signs of trauma Eyes: EOMI, sclera anicteric ENT: Moist mucus membranes Neck: Normal ROM, supple Lungs: Rales present at left base Cardio: Regular rhythm, S1 and S2 present Abdomen: Soft, nontender. No guarding, no rebound, no masses Extremities: Normal range of motion, Distal pulses present SKIN: Warm, Dry, normal turgor Neurologic: Cranial nerves II through XII grossly intact. Normal speech ED Course/MDM: DDX including but not limited to influenza, PNA, ACS, PE Labs, EKG, CXR Tylenol 04/08/19 22:22 Influenza A positive Tamiflu ordered 04/08/19 23:30 EKG: rate 85, QTc 399, NSR CBC WBC 4.5 K/mm3 (4.0-10.0) 04/08/19 23:25 RBC 4.17 M/mm3 (3.60-5.2) 04/08/19 23:25 Hgb 10.3 GM/dL (10.7-15.3) L 04/08/19 23:25 Hct 31.8 % (32.4-45.2) L 04/08/19 23:25 MCV 76.3 fl (80-96) L 04/08/19 23:25 MCH 24.8 pg (25.7-33.7) L 04/08/19 23:25 MCHC 32.5 g/dl (32.0-36.0) 04/08/19 23:25 RDW 15.9 % (11.6-15.6) H 04/08/19 23:25 Plt Count 253 K/MM3 (134-434) D 04/08/19 23:25 MPV 7.1 fl (7.5-11.1) L 04/08/19 23:25 Absolute Neuts (auto) 3.2 K/mm3 (1.5-8.0) 04/08/19 23:25 Neutrophils % 71.6 % (42.8-82.8) D 04/08/19 23:25 Lymphocytes % 13.7 % (8-40) D 04/08/19 23:25 Monocytes % 14.0 % (3.8-10.2) H 04/08/19 23:25 Eosinophils % 0.1 % (0-4.5) D 04/08/19 23:25 Basophils % 0.6 % (0-2.0) 04/08/19 23:25 Nucleated RBC % 0 % (0-0) 04/08/19 23:25 No leukocytosis CMP Sodium 140 mmol/L (136-145) 04/08/19 23:25 Potassium 3.4 mmol/L (3.5-5.1) L 04/08/19 23:25 Chloride 106 mmol/L (98-107) 04/08/19 23:25 Carbon Dioxide 25 mmol/L (21-32) 04/08/19 23:25 Anion Gap 9 MMOL/L (8-16) 04/08/19 23:25 BUN 16.4 mg/dL (7-18) 04/08/19 23:25 Creatinine 1.2 mg/dL (0.55-1.3) 04/08/19 23:25 Est GFR (CKD-EPI)AfAm 54.16 04/08/19 23:25 Est GFR (CKD-EPI)NonAf 46.73 04/08/19 23:25 Random Glucose 115 mg/dL (74-106) H 04/08/19 23:25 Calcium 8.7 mg/dL (8.5-10.1) 04/08/19 23:25 Total Bilirubin 0.2 mg/dL (0.2-1) 04/08/19 23:25 AST 41 U/L (15-37) H 04/08/19 23:25 ALT 44 U/L (13-61) 04/08/19 23:25 Alkaline Phosphatase 71 U/L (45-117) 04/08/19 23:25 Creatine Kinase 184 U/L (26-192) 04/08/19 23:25 Troponin I < 0.02 ng/ml (0.00-0.05) 04/08/19 23:25 B-Natriuretic Peptide 404.4 pg/ml (5-125) H 04/08/19 23:25 Total Protein 7.0 g/dl (6.4-8.2) 04/08/19 23:25 Albumin 3.3 g/dl (3.4-5.0) L 04/08/19 23:25 Electolytes unremarkable BNP elevated Tpn undetectable CXR without infiltrate, my impression 04/09/19 01:04 Patient with influenza Low suspicion for acute cardiopulmonary process at this time Prescription for tamiflu sent to pharmacy Instructed good hand washing and hygiene Return precautions Stable for discharge 04/09/19 07:56 Past History - Past Medical History Allergies/Adverse Reactions: Allergies Allergy/AdvReac Type Severity Reaction Status Date / Time Penicillins Allergy Intermediate Rash Verified 04/08/19 21:49 morphine Allergy Mild Rash Uncoded 04/08/19 21:49 Home Medications: Ambulatory Orders Albuterol Sulfate Inhaler - [Ventolin HFA Inhaler -] 1 - 2 inh PO QID 07/21/15 Aspirin [ASA -] 81 mg PO DAILY 07/21/15 Metoclopramide HCl 5 mg PO PRN PRN 12/10/16 Omeprazole 40 mg PO DAILY 12/10/16 Metoprolol Tartrate [Lopressor -] 50 mg PO BID 01/05/18 Gabapentin [Neurontin] 300 mg PO HS 03/16/18 Icosapent Ethyl [Vascepa] 1 gm PO BID 03/16/18 Meclizine HCl 25 mg PO HS PRN 03/16/18 Meloxicam 5 mg PO TID 03/16/18 Mirtazapine 30 mg PO HS 03/16/18 Sitagliptin Phosphate [Januvia -] 100 mg PO DAILY@0700 #30 ud 03/21/18 Dapagliflozin Propanediol [Farxiga] 10 mg PO DAILY 01/30/19 Hydrocortisone Valerate [Westcort 0.2% Cream -] 1 applic TP DAILY 01/30/19 Insulin Glargine,Hum.rec.anlog [Toujeo Max Solostar] 50 unit SQ DAILY 01/30/19 Levothyroxine [Synthroid -] 25 mcg PO DAILY 01/30/19 Meloxicam 15 mg PO DAILY 01/30/19 Metoclopramide HCl 5 mg PO TID 01/30/19 Neomycin/Polymyxn/Hc [Cortisporin Otic Solution -] 1 drop DAILY 01/30/19 Olmesartan/Amlodipin/Hcthiazid [Ycckyuj-Lorpmp-Jwjz 40-5-25 mg] 1 each PO DAILY 01/30/19 Guaifenesin [Mucinex] 1,200 mg PO BID #12 tab.er.12h 02/21/19 Meclizine HCl [Antivert -] 25 mg PO DAILY PRN #8 tablet 03/17/19 Oseltamivir Phosphate [Tamiflu] 75 mg PO BID #10 capsule 04/09/19 Anemia: Yes Asthma: Yes Cancer: No Cardiac Disorders: Yes (palpitations, CAD,heart murmur) CVA: No COPD: No CHF: No Dementia: No Diabetes: Yes GI Disorders: Yes (GERD) Disorders: No HTN: Yes Hypercholesterolemia: Yes Liver Disease: Yes (INFLAMMED LIVER/ FATTY LIVER) Seizures: No Thyroid Disease: Yes - Surgical History Abdominal Surgery: No Appendectomy: No Cardiac Surgery: No Cholecystectomy: No Lung Surgery: No Neurologic Surgery: No Orthopedic Surgery: Yes (r open shoulder surgery) - Immunization History Immunization Up to Date: Yes - Psycho Social/Smoking Cessation Hx Smoking Status: No Smoking History: Never smoked Have you smoked in the past 12 months: No Number of Cigarettes Smoked Daily: 0 Hx Alcohol Use: No Drug/Substance Use Hx: No Substance Use Type: Alcohol Hx Substance Use Treatment: No *Physical Exam - Vital Signs Last Vital Signs Temp Pulse Resp BP Pulse Ox 100.6 F H 81 18 123/68 96 04/08/19 21:47 04/08/19 21:47 04/08/19 21:47 04/08/19 21:47 04/08/19 21:47 ED Treatment Course - LABORATORY CBC & Chemistry Diagram: 04/08/19 23:25 04/08/19 23:25 Discharge - Discharge Information Problems reviewed: Yes Clinical Impression/Diagnosis: Influenza A Condition: Stable Disposition: HOME - Additional Discharge Information Prescriptions: Oseltamivir Phosphate [Tamiflu] 75 mg PO BID #10 capsule - Follow up/Referral Referrals: Gisela Woodson MD [Primary Care Provider] - - Patient Discharge Instructions Patient Printed Discharge Instructions: DI for Influenza -- Adult Additional Instructions: You came into the emergency department with fever and chills. Flu test today was positive for Influenza A. Lab work, EKG, and Xray were unremarkable. Rest, drink lots of fluids: Teas, water, soups, Pedialyte Humidified air, steamy showers, saltwater gargles can help break up mucus Lots of handwashing and good hygiene Prescription sent to your pharmacy. Take as instructed. You can also take tylenol/motrin as needed for fever and pain. Follow the instructions on the medication bottle. Continue taking home medications as prescribed by your physician. Follow-up with your primary care physician to discuss this ED visit and to further evaluate your symptoms. Your workup is not complete until you do so. Call and make an appointment. Immediate medical attention is required if you have: any chest pain, palpitations, shortness of breath, severe headaches, changes in vision, episodes of fainting, focal numbness or weakness, any severe abdominal pain, any black tarry stool, or any new or concerning symptoms. If you think you are having an emergency, call for emergency medical services or present to the emergency department right away. === Llegaste al departamento de emergencias con fiebre y escalofros. La prueba de gripe de hoy fue positiva para Influenza A. El trabajo de laboratorio, el electrocardiograma y la radiografa fueron irrelevantes. Descanse, tanesha muchos lquidos: ts, agua, sopas, pedialyte El aire humidificado, las duchas de vapor, las grgaras de agua salada pueden ayudar a romper la mucosidad. Lavado de giuseppe y buena higiene. Receta enviada a vernon farmacia. Tmelo segn las instrucciones. Tambin puede negro tylenol / motrin segn sea necesario para la fiebre y el dolor. Siga las instrucciones en la botella del medicamento. Contine tomando los medicamentos caseros segn lo prescrito por vernon mdico. Charlie un seguimiento con vernon mdico de atencin primaria para analizar esta visita al servicio de urgencias y evaluar ms a fondo yudy sntomas. Vernon trabajo no est completo hasta que lo charlie. Llame y charlie negro rob. Se requiere atencin mdica inmediata si tiene: dolor en el pecho, palpitaciones, dificultad para respirar, theron de jacquelin severos, cambios en la visin, episodios de desmayos, entumecimiento o debilidad focal, cualquier dolor abdominal intenso, heces negras alquitranadas o cualquier problema nuevo o preocupante sntomas Si palomo que est teniendo negro emergencia, llame a los servicios mdicos de emergencia o presntese de inmediato en el departamento de emergencias. - Post Discharge Activity
[2019-04-08] MEDS ORDERED: ACETAMINOPHEN 325 MG TABLET (FP) PO ONE (22:37)
[2019-04-08] MEDS ORDERED: OSELTAMIVIR PHOSPHATE 75 MG CAPSULE PO ONE (23:04)
[2019-04-08] MEDS ORDERED: OSELTAMIVIR PHOSPHATE 75 MG CAPSULE ONE (23:06)
[2019-04-08] MEDS ORDERED: ACETAMINOPHEN 325 MG TABLET (FP) ONE (23:09)
--- NOTE | 2019-04-08 23:59 | PDOC ---
Attending Attestation - Resident Resident Name: Ro Serra - ED Attending Attestation I have performed the following: I have examined & evaluated the patient, The case was reviewed & discussed with the resident, I agree w/resident's findings & plan - HPI HPI: 04/08/19 23:54 see resident hpi - Physicial Exam PE: 04/08/19 23:54 agree with resident exam - Medical Decision Making 04/08/19 23:55 68-year-old female with chest pressure fever and cough Patient is influenza positive Plan for labs due to cardiac history Chest x-ray reviewed Will DC on antivirals
[2019-04-09 00:13] LABS: EOS % 0.1 % (0-4.5); MEAN PLT VOLUME 7.1 fl (7.5-11.1)
[2019-04-09 00:18] LABS: BASO % 0.6 % (0-2.0); HEMATOCRIT 31.8 % (32.4-45.2); HEMOGLOBIN 10.3 GM/dL (10.7-15.3); LYMPH % 13.7 % (8-40); MCH 24.8 pg (25.7-33.7); MCHC 32.5 g/dl (32.0-36.0); MEAN CELL VOLUME 76.3 fl (80-96); NEUT % 71.6 % (42.8-82.8); PLATELET COUNT 253 K/MM3 (134-434); RBC 4.17 M/mm3 (3.60-5.2); RDW 15.9 % (11.6-15.6); WHITE BLOOD COUNT 4.5 K/mm3 (4.0-10.0)
[2019-04-09 00:27] LABS: INR 1.32 (0.83-1.09); PROTHROMBIN TIME (PATIENT) 15.6 SEC (9.7-13.0)
[2019-04-09 00:39] LABS: ALBUMIN 3.3 g/dl (3.4-5.0); ALK PHOS 71 U/L (45-117); ANION GAP 9 MMOL/L (8-16); BILIRUBIN,TOTAL 0.2 mg/dL (0.2-1); BLOOD UREA NITROGEN 16.4 mg/dL (7-18); CALCIUM 8.7 mg/dL (8.5-10.1); CHLORIDE 106 mmol/L (98-107); CO2 25 mmol/L (21-32); CREATININE 1.2 mg/dL (0.55-1.3); GLUCOSE,RANDOM 115 mg/dL (74-106); N-TERMINAL BNP 404.4 pg/ml (5-125); POTASSIUM 3.4 mmol/L (3.5-5.1); SGOT/AST 41 U/L (15-37); SGPT/ALT 44 U/L (13-61); SODIUM 140 mmol/L (136-145)
[2019-04-09 01:17] VITALS: BP 124/53; PULSE 76; TEMP 98.2
[2019-04-09 02:31] LABS: PLATELET ESTIMATE ADEQUATE
--- NOTE | 2019-04-09 10:29 | EKG ---
Test Reason : Blood Pressure : / mmHG Vent. Rate : 085 BPM Atrial Rate : 085 BPM P-R Int : 168 ms QRS Dur : 082 ms QT Int : 336 ms P-R-T Axes : 051 -11 041 degrees QTc Int : 399 ms NORMAL SINUS RHYTHM NORMAL ECG WHEN COMPARED WITH ECG OF 16-MAR-2019 17:57, NO SIGNIFICANT CHANGE WAS FOUND Confirmed by JAROD VALENTINE MD ([id number]) on 04/09/2019 10:28:41 AM Referred By: Confirmed By:JAROD VALNETINE MD
== END 2019-04-09 01:17 | disposition home or self-care (01) ==
LOC: JER 21:38
DX: J09.X2 Influenza due to identified novel influenza A virus with other respiratory manifestations (principal); Z88.0 Allergy status to penicillin; Z88.5 Allergy status to narcotic agent; I25.10 Atherosclerotic heart disease of native coronary artery without angina pectoris; I10 Essential (primary) hypertension; E11.9 Type 2 diabetes mellitus without complications; Z79.4 Long term (current) use of insulin; E78.00 Pure hypercholesterolemia, unspecified; J45.909 Unspecified asthma, uncomplicated; K21.9 Gastro-esophageal reflux disease without esophagitis; K76.89 Other specified diseases of liver; E07.9 Disorder of thyroid, unspecified
CPT/HCPCS: 36415; 71045-TC-FY; 80053; 82550; 82553; 83880; 84484; 85025; 85610; 87804; 93005; 93010; 99283-25

== ENCOUNTER 2020-07-05 19:21 | Emergency (ER) | payer OTHER ==
[2020-07-05 19:58] VITALS: TEMP 98.3; BMI 43.7
[2020-07-05] MEDS ORDERED: SODIUM CHLORIDE 500 ML IV STA (20:31)
[2020-07-05] MEDS ORDERED: ACETAMINOPHEN 1000 MG/100 ML VIAL (NON FORMULARY) IVPB ONE (20:37)
[2020-07-05] MEDS ORDERED: ACETAMINOPHEN INJECTION 100 ML IVPB ONE (21:10)
[2020-07-05 22:30] LABS: BASO % 0.4 % (0-2.0); HEMATOCRIT 31.7 % (32.4-45.2); HEMOGLOBIN 10.4 GM/dL (10.7-15.3); LYMPH % 17.8 % (8-40); MCH 24.9 pg (25.7-33.7); MCHC 32.8 g/dl (32.0-36.0); MONO % 8.5 % (3.8-10.2); NEUT % 73.3 % (42.8-82.8); PLATELET COUNT 279 K/MM3 (134-434); RBC 4.17 M/mm3 (3.60-5.2); RDW 15.7 % (11.6-15.6); WHITE BLOOD COUNT 5.6 K/mm3 (4.0-10.0)
[2020-07-05 22:36] LABS: INR 1.08 (0.83-1.09); PROTHROMBIN TIME (PATIENT) 13.2 SEC (9.7-13.0)
[2020-07-05 22:38] LABS: ACTIVATED PTT 25.1 SECONDS (25.2-36.5)
[2020-07-05 22:53] LABS: CHLORIDE 104 mmol/L (98-107); POTASSIUM 3.6 mmol/L (3.5-5.1); SODIUM 139 mmol/L (136-145)
[2020-07-05 22:55] LABS: CALCIUM 8.5 mg/dL (8.5-10.1)
[2020-07-05 22:56] LABS: ALBUMIN 3.2 g/dl (3.4-5.0); ANION GAP 9 MMOL/L (8-16); BLOOD UREA NITROGEN 14.3 mg/dL (7-18); CO2 25 mmol/L (21-32); GLUCOSE,RANDOM 110 mg/dL (74-106)
[2020-07-05 22:59] LABS: SGOT/AST 56 U/L (15-37); SGPT/ALT 70 U/L (13-61)
[2020-07-05 23:00] LABS: BILIRUBIN,TOTAL 0.2 mg/dL (0.2-1); LDH 293 U/L (84-246); TOT PROT 7.2 g/dl (6.4-8.2)
[2020-07-05 23:02] LABS: ALK PHOS 77 U/L (45-117)
[2020-07-05 23:15] LABS: EPI CELLS >36 /uL (0-25.1); HYALINE CASTS 5 /uL (0-3.1); PH,URINE 5.5 (5.0-8.0); URINE APPEARANCE CLOUDY; URINE BACTERIA 1530 /uL (0-1359); URINE BILIRUBIN NEGATIVE (NEGATIVE); URINE COLOR YELLOW; URINE GLUCOSE (UA) NEGATIVE (NEGATIVE); URINE KETONE TRACE (NEGATIVE); URINE LEUK ESTERASE NEGATIVE (NEGATIVE); URINE NITRITE NEGATIVE (NEGATIVE); URINE PROTEIN 2+ (NEGATIVE); URINE RBC 55 /uL (0-23.9); URINE UROBILINOGEN 0.2 mg/dL (0.2-1.0); URINE WBC 24 /uL (0-25.8)
[2020-07-06] MEDS ORDERED: BAMLANIVIMAB 700 MG, ETESEVIMAB 1,400 MG in SODIUM CHLORIDE 250 ML IVPB ONE ×2 (01:07→01:20)
[2020-07-06] MEDS ORDERED: SULFAMETHOXAZOLE/TRIMETHOPRIM 800MG/160MG D.S. TABLET PO ONE (03:53)
[2020-07-06] MEDS ORDERED: SULFAMETHOXAZOLE/TRIMETHOPRIM 800MG/160MG D.S. TABLET ONE (04:34)
[2020-07-06 05:05] VITALS: BP 125/65; PULSE 72
== END 2020-07-06 06:09 | disposition home or self-care (01) ==
LOC: JER 19:21
PROC: 3E0333Z Introduction of Anti-inflammatory into Peripheral Vein, Percutaneous Approach (ICD-10-PCS; principal; 2020-07-05)
PROC: 3E03329 Introduction of Other Anti-infective into Peripheral Vein, Percutaneous Approach (ICD-10-PCS; 2020-07-05)
PROC: 3E0337Z Introduction of Electrolytic and Water Balance Substance into Peripheral Vein, Percutaneous Approach (ICD-10-PCS; 2020-07-05)
DX: J12.82 Pneumonia due to coronavirus disease 2019 (principal); N39.0 Urinary tract infection, site not specified; U07.1 COVID-19
CPT/HCPCS: 36415; 71275-TC; 80053; 81003; 82550; 82728; 83615; 83735; 84484; 85025; 85379; 85384; 85610; 85730; 86140; 87086; 93005; 93010; 99285-25; C9803; J0131; M0239; Q0239; Q0245; Q9967; U0003

== ENCOUNTER → 2021-03-20 | Emergency (ER) | payer OTHER ==
[~2021-03-20] MED LIST changes: -LIDOCAINE HCL 2% (20ML MULTI-DOSE VIAL) NR ONE; -LIDOCAINE HCL 2% (50ML VIAL) DT ONE; -guaiFENesin/CODEINE 10 ML UNIT-DOSE CUPS PO ONE; -guaiFENesin/CODEINE 5 ML UNIT-DOSE CUPS PO ONE; +predniSONE 20 MG TABLET (UD) PO ONE
[2021-03-20 13:54] VITALS: BP 121/79; PULSE 65; TEMP 98.2; BMI 25.7
== END | disposition left against medical advice (07) ==
LOC: JER 13:00
DX: R05.1 Acute cough (principal); R06.02 Shortness of breath
CPT/HCPCS: 99281-25

== ENCOUNTER 2021-03-25 02:38 | Emergency (ER) | payer OTHER ==
[2021-03-25 03:05] VITALS: TEMP 97.6; BMI 25.7
[2021-03-25] MEDS ORDERED: ACETAMINOPHEN 325 MG TABLET (FP) ONE (03:12)
[2021-03-25] MEDS ORDERED: SODIUM CHLORIDE 0.9% 500 ML INFUS.BAG IV ONE (05:04)
[2021-03-25] MEDS ORDERED: METOCLOPRAMIDE HCL INJECTION 10 MG/2 ML VIAL IVPB ONE (05:04)
[2021-03-25] MEDS ORDERED: METOCLOPRAMIDE HCL INJECTION 10 MG/2 ML VIAL ONE (05:08)
[2021-03-25 05:51] LABS: BASO % 0.6 % (0-2.0); EOS % 1.6 % (0-4.5); HEMATOCRIT 33.3 % (32.4-45.2); HEMOGLOBIN 10.9 GM/dL (10.7-15.3); LYMPH % 43.9 % (8-40); MCH 25.3 pg (25.7-33.7); MCHC 32.7 g/dl (32.0-36.0); MEAN CELL VOLUME 77.3 fl (80-96); MEAN PLT VOLUME 6.7 fl (7.5-11.1); MONO % 10.4 % (3.8-10.2); NEUT % 43.5 % (42.8-82.8); PLATELET COUNT 445 10^3/uL (134-434); RDW 14.8 % (11.6-15.6); VENOUS BASE EXCESS -0.6 mmol/L (-2-2); VENOUS O2 SATURATION 72.4 % (70-80); VENOUS PCO2 42.4 mmHg (38-52); VENOUS PH 7.38 (7.310-7.410); WHITE BLOOD COUNT 9.1 K/mm3 (4.0-10.0)
[2021-03-25 05:55] LABS: EPI CELLS 31 /uL (0-25.1); HYALINE CASTS 1 /uL (0-3.1); PH,URINE 5.5 (5.0-8.0); URINE APPEARANCE CLEAR; URINE BACTERIA 284 /uL (0-1359); URINE BILIRUBIN NEGATIVE (NEGATIVE); URINE COLOR YELLOW; URINE GLUCOSE (UA) 2+ (NEGATIVE); URINE KETONE NEGATIVE (NEGATIVE); URINE LEUK ESTERASE TRACE (NEGATIVE); URINE NITRITE NEGATIVE (NEGATIVE); URINE PROTEIN NEGATIVE (NEGATIVE); URINE RBC 7 /uL (0-23.9); URINE UROBILINOGEN 0.2 mg/dL (0.2-1.0); URINE WBC 55 /uL (0-25.8)
[2021-03-25 06:26] LABS: CHLORIDE 103 mmol/L (98-107); SODIUM 138 mmol/L (136-145)
[2021-03-25 06:28] LABS: ANION GAP 8 MMOL/L (8-16); CALCIUM 9.7 mg/dL (8.5-10.1); CO2 27 mmol/L (21-32); GLUCOSE,RANDOM 130 mg/dL (74-106)
[2021-03-25 06:29] LABS: ALBUMIN 3.3 g/dl (3.4-5.0)
[2021-03-25 06:31] LABS: SGPT/ALT 50 U/L (13-61)
[2021-03-25 06:32] LABS: CREATININE 1.1 mg/dL (0.55-1.3); SGOT/AST 27 U/L (15-37)
[2021-03-25 06:33] LABS: BILIRUBIN,TOTAL 0.2 mg/dL (0.2-1); TOT PROT 7.4 g/dl (6.4-8.2)
[2021-03-25 06:34] LABS: ALK PHOS 69 U/L (45-117)
[2021-03-25] MEDS ORDERED: KETOROLAC TROMETHAMINE 15 MG/ML VIAL IVPUSH ONE (06:36)
[2021-03-25 07:52] VITALS: BP 154/83; PULSE 71
== END 2021-03-25 07:52 | disposition home or self-care (01) ==
LOC: JER 02:38
PROC: 3E0333Z Introduction of Anti-inflammatory into Peripheral Vein, Percutaneous Approach (ICD-10-PCS; principal; 2021-03-25)
PROC: 3E033GC Introduction of Other Therapeutic Substance into Peripheral Vein, Percutaneous Approach (ICD-10-PCS; 2021-03-25)
DX: R51.9 Headache, unspecified (principal); R73.9 Hyperglycemia, unspecified
CPT/HCPCS: 36415; 70450-TC; 80053; 81003; 82010; 82803; 82962; 85025; 87086; 87804; 99284-25; C9803; U0003; U0005

== ENCOUNTER 2021-08-06 10:20 | Emergency (ER) | payer OTHER ==
[2021-08-06 10:31] VITALS: BP 145/70; PULSE 77; TEMP 98.2; BMI 26.1
[2021-08-06] MEDS ORDERED: KETOROLAC TROMETHAMINE 30 MG/1 ML VIAL IM ONE (10:45)
[2021-08-06] MEDS ORDERED: LIDOCAINE 5% TOPICAL PATCH TP ONE (10:46)
[2021-08-06] MEDS ORDERED: LIDOCAINE 5% TOPICAL PATCH ONE (10:51)
[2021-08-06] MEDS ORDERED: KETOROLAC TROMETHAMINE 30 MG/1 ML VIAL ONE (10:51)
== END 2021-08-06 13:25 | disposition home or self-care (01) ==
LOC: JERFT 10:20 → JER 10:20 → JERFT 13:25
PROC: 3E023GC Introduction of Other Therapeutic Substance into Muscle, Percutaneous Approach (ICD-10-PCS; principal; 2021-08-06)
DX: S39.012A Strain of muscle, fascia and tendon of lower back, initial encounter (principal); Y99.9 Unspecified external cause status
CPT/HCPCS: 72131-TC; 99284-25

== ENCOUNTER 2022-05-31 14:15 | Emergency (ER) | payer OTHER ==
[2022-05-31 14:38] VITALS: BP 112/70; PULSE 92; RESP 20; TEMP 98.5; BMI 25.4
== END 2022-05-31 15:49 | disposition home or self-care (01) ==
LOC: JER 14:15 → JERFT 14:15
DX: U07.1 COVID-19 (principal); R09.82 Postnasal drip
CPT/HCPCS: 0241U-QW; 71046-TC-FY; 87651; 99284-25

== ENCOUNTER 2022-07-21 12:03 | Emergency (ER) | payer OTHER ==
[2022-07-21 12:10] VITALS: TEMP 98; BMI 24.9
[2022-07-21] MEDS ORDERED: MECLIZINE HCL 25 MG TABLET (FP) PO ONE (12:44)
[2022-07-21] MEDS ORDERED: SODIUM CHLORIDE 0.9% 500 ML INFUS.BAG IV ONE (12:44)
[2022-07-21] MEDS ORDERED: LIDOCAINE 5% TOPICAL PATCH TP ONE (12:45)
[2022-07-21] MEDS ORDERED: ACETAMINOPHEN 1000 MG/100 ML BAG IVPB ONE ×2 (12:48→15:11)
[2022-07-21] MEDS ORDERED: MECLIZINE HCL 25 MG TABLET (FP) ONE (12:49)
[2022-07-21] MEDS ORDERED: LIDOCAINE 5% TOPICAL PATCH ONE (12:49)
[2022-07-21 13:17] LABS: PH,URINE 5.5 (5.0-8.0); URINE APPEARANCE CLOUDY; URINE BILIRUBIN NEGATIVE (NEGATIVE); URINE COLOR YELLOW; URINE GLUCOSE (UA) 3+ (NEGATIVE); URINE KETONE NEGATIVE (NEGATIVE); URINE LEUK ESTERASE NEGATIVE (NEGATIVE); URINE NITRITE NEGATIVE (NEGATIVE); URINE PROTEIN NEGATIVE (NEGATIVE); URINE UROBILINOGEN 0.2 mg/dL (0.2-1.0)
[2022-07-21] MEDS ORDERED: LIDOCAINE 1%/EPI 1:100000 (20 ML MULTI DOSE VIAL) IJ ONE (14:19)
[2022-07-21] MEDS ORDERED: LIDOCAINE HCL 1%, 10 MG/ML (10ML VIAL) MDV ONE (14:49)
[2022-07-21] MEDS ORDERED: ACETAMINOPHEN INJECTION 100 ML IVPB ONE ×2 (15:11→15:12)
[2022-07-21 15:26] LABS: BASO % 1.1 % (0-2.0); EOS % 1.9 % (0-4.5); HEMATOCRIT 35.9 % (32.4-45.2); LYMPH % 36.1 % (8-40); MCH 24.8 pg (25.7-33.7); MCHC 33.5 g/dl (32.0-36.0); MEAN CELL VOLUME 74.1 fl (80-96); MEAN PLT VOLUME 6.8 fl (7.5-11.1); NEUT % 49.9 % (42.8-82.8); PLATELET COUNT 361 10^3/uL (134-434); RBC 4.84 M/mm3 (3.60-5.2); RDW 16.4 % (11.6-15.6); WHITE BLOOD COUNT 6.9 K/mm3 (4.0-10.0)
[2022-07-21 16:17] LABS: CALCIUM 9.9 mg/dL (8.5-10.1)
[2022-07-21 16:18] LABS: ALBUMIN 3.7 g/dl (3.4-5.0); BLOOD UREA NITROGEN 25.5 mg/dL (7-18)
[2022-07-21 16:21] LABS: CREATININE 1.1 mg/dL (0.55-1.3)
[2022-07-21 16:23] LABS: BILIRUBIN,TOTAL 0.2 mg/dL (0.2-1)
[2022-07-21 17:37] VITALS: BP 149/73; PULSE 79; RESP 18
[2022-07-21] MEDS ORDERED: LIDOCAINE PATCH REMOVAL MC SCH (22:00)
== END 2022-07-21 17:54 | disposition home or self-care (01) ==
LOC: JER 12:03
PROC: 3E033NZ Introduction of Analgesics, Hypnotics, Sedatives into Peripheral Vein, Percutaneous Approach (ICD-10-PCS; principal; 2022-07-21)
DX: M54.50 Low back pain, unspecified (principal); R42 Dizziness and giddiness; Z20.822 Contact with and (suspected) exposure to COVID-19
CPT/HCPCS: 0241U-QW; 36415; 70450-TC; 71045-TC-FY; 72131-TC; 80053; 81003; 83735; 84443; 84484; 85025; 87086; 93005; 93010; 99285-25

== ENCOUNTER 2023-03-16 01:11 | Inpatient (IN) | payer OTHER ==
[2023-03-16] MEDS ORDERED: SODIUM CHLORIDE 1,000 ML IV STA (01:36)
[2023-03-16] MEDS ORDERED: METOCLOPRAMIDE HCL INJECTION 10 MG/2 ML VIAL IVPUSH ONE (01:36)
[2023-03-16] MEDS ORDERED: ACETAMINOPHEN 1000 MG/100 ML BAG IVPB ONE (01:36)
[2023-03-16] MEDS ORDERED: ALPRAZolam 0.25 MG TABLET PO PRN (01:42)
[2023-03-16] MEDS ORDERED: ACETAMINOPHEN INJECTION 100 ML IVPB ONE (01:53)
[2023-03-16] MEDS ORDERED: METOCLOPRAMIDE HCL INJECTION 10 MG/2 ML VIAL ONE (01:53)
[2023-03-16] MEDS ORDERED: ALPRAZolam 0.25 MG TABLET ONE (01:53)
[2023-03-16 02:23] LABS: INR 1.06 (0.83-1.09); PROTHROMBIN TIME (PATIENT) 12.3 SEC (9.7-13.0)
[2023-03-16 02:24] LABS: BASO % 0.9 % (0-2.0); EOS % 0.8 % (0-4.5); HEMATOCRIT 35.3 % (32.4-45.2); LYMPH % 27.4 % (8-40); MCH 23.7 pg (25.7-33.7); MCHC 31.2 g/dl (32.0-36.0); MEAN CELL VOLUME 75.9 fl (80-96); MEAN PLT VOLUME 7.2 fl (7.5-11.1); MONO % 7.2 % (3.8-10.2); NEUT % 63.7 % (42.8-82.8); PLATELET COUNT 342 10^3/uL (134-434); RBC 4.66 M/mm3 (3.60-5.2); RDW 15.5 % (11.6-15.6)
[2023-03-16 02:26] LABS: ACTIVATED PTT 25.3 SECONDS (25.2-36.5)
[2023-03-16 02:32] LABS: POTASSIUM 3.7 mmol/L (3.5-5.1)
[2023-03-16 02:34] LABS: CALCIUM 10.2 mg/dL (8.5-10.1)
[2023-03-16 02:35] LABS: ALBUMIN 4.2 g/dl (3.4-5.0); BLOOD UREA NITROGEN 32.2 mg/dL (7-18)
[2023-03-16 02:38] LABS: CREATININE 1.3 mg/dL (0.55-1.3)
[2023-03-16 02:39] LABS: TOT PROT 8.7 g/dl (6.4-8.2)
[2023-03-16 02:40] LABS: BILIRUBIN,TOTAL 0.3 mg/dL (0.2-1)
[2023-03-16] MEDS ORDERED: ASPIRIN 81 MG CHEWABLE TABLETS PO ONE (05:18)
[2023-03-16] MEDS ORDERED: ATORVASTATIN CA 20 MG TABLET (FP) PO ONE (06:03)
[2023-03-16] MEDS ORDERED: ASPIRIN 81 MG CHEWABLE TABLETS ONE ×2 (06:05→07:50)
[2023-03-16] MEDS: ENOXAPARIN NA (PORCINE) 80 MG/0.8 ML DISP.SYRIN SQ SCH ×2 (06:05→19:55)
[2023-03-16] MEDS ORDERED: ENOXAPARIN NA (PORCINE) 100 MG/1 ML DISP.SYRIN SQ ONE (06:05)
[2023-03-16] MEDS: LEVOTHYROXINE NA 25 MCG TABLET (FP) PO SCH (07:15)
[2023-03-16] MEDS ORDERED: LEVOTHYROXINE NA 25 MCG TABLET (FP) ONE (07:50)
[2023-03-16] MEDS ORDERED: METOPROLOL TARTRATE 50 MG TABLET (FP) ONE (07:50)
[2023-03-16] MEDS ORDERED: ENOXAPARIN NA (PORCINE) 40 MG/0.4 ML DISP.SYRIN SQ SCH (10:00)
[2023-03-16] MEDS: METOPROLOL TARTRATE 50 MG TABLET (FP) PO SCH ×2 (10:11→22:13)
[2023-03-16] MEDS: ASPIRIN 81 MG CHEWABLE TABLETS PO SCH (10:11)
[2023-03-16 18:47] VITALS: RESP 18; BMI 26.4
[2023-03-16] MEDS ORDERED: MELATONIN 5 MG TABLETS PO ONE (23:56)
[2023-03-16] MEDS ORDERED: FAMOTIDINE 20 MG TABLET PO ONE (23:56)
[2023-03-17] MEDS: ENOXAPARIN NA (PORCINE) 80 MG/0.8 ML DISP.SYRIN SQ SCH (06:17)
[2023-03-17] MEDS: LEVOTHYROXINE NA 25 MCG TABLET (FP) PO SCH (06:17)
[2023-03-17] MEDS: ASPIRIN 81 MG CHEWABLE TABLETS PO SCH (10:26)
[2023-03-17] MEDS: METOPROLOL TARTRATE 50 MG TABLET (FP) PO SCH ×2 (10:26→21:18)
[2023-03-17] MEDS: FAMOTIDINE 10 MG TABLET PO SCH (21:18)
[2023-03-17] MEDS ORDERED: MELATONIN 5 MG TABLETS PO ONE (21:57)
[2023-03-18] MEDS: LEVOTHYROXINE NA 25 MCG TABLET (FP) PO SCH (06:09)
[2023-03-18] MEDS ORDERED: REGADENOSON 0.4 MG/5 ML PRE-FILLED SYRINGE IVPUSH ONE ×2 (09:51→10:15)
[2023-03-18] MEDS: ASPIRIN 81 MG CHEWABLE TABLETS PO SCH (13:09)
[2023-03-18] MEDS: METOPROLOL TARTRATE 50 MG TABLET (FP) PO SCH (13:10)
[2023-03-18] MEDS: FAMOTIDINE 10 MG TABLET PO SCH (13:10)
[2023-03-18 18:10] VITALS: BP 148/69; PULSE 55; TEMP 97.6
== END 2023-03-18 18:23 | disposition home or self-care (01) | DRG 103 ==
LOC: JER 01:11 → JERBED 03:32 → OBSVTOIN 04:26 → J4S 19:18
PROVIDERS: ADMIT Internal Medicine; ATTEND Family Medicine
DX: R51.9 Headache, unspecified (principal); I24.89 Other forms of acute ischemic heart disease; I25.10 Atherosclerotic heart disease of native coronary artery without angina pectoris; I10 Essential (primary) hypertension; E11.9 Type 2 diabetes mellitus without complications; E03.9 Hypothyroidism, unspecified; E78.5 Hyperlipidemia, unspecified; R11.10 Vomiting, unspecified; K21.9 Gastro-esophageal reflux disease without esophagitis
CPT/HCPCS: 36415; 70450-TC; 71045-TC-FY; 78452-TC; 80053; 80061; 81003; 82043; 82306; 82570; 82607; 82962; 83036; 83540; 83550; 84439; 84443; 84484; 85025; 85610; 85730; 93005; 93010; 93017; 93306-TC; 99285-25; A9502; G0378; J2785

== ENCOUNTER 2023-06-30 21:32 | Emergency (ER) | payer OTHER ==
[2023-06-30 21:37] VITALS: BP 115/62; PULSE 81; RESP 20; TEMP 97.5; BMI 25.4
[2023-06-30 23:00] LABS: BASO % 0.8 % (0-2.0); EOS % 1.7 % (0-4.5); HEMATOCRIT 35.7 % (32.4-45.2); HEMOGLOBIN 11.6 GM/dL (10.7-15.3); LYMPH % 30.5 % (8-40); MCH 24.4 pg (25.7-33.7); MCHC 32.5 g/dl (32.0-36.0); MEAN PLT VOLUME 6.3 fl (7.5-11.1); MONO % 9.1 % (3.8-10.2); NEUT % 57.9 % (42.8-82.8); PLATELET COUNT 374 10^3/uL (134-434); RBC 4.76 M/mm3 (3.60-5.2); RDW 16.3 % (11.6-15.6)
[2023-06-30] MEDS ORDERED: ACETAMINOPHEN INJECTION 100 ML IVPB ONE (23:10)
[2023-06-30 23:13] LABS: POTASSIUM 4.5 mmol/L (3.5-5.1)
[2023-06-30 23:15] LABS: CALCIUM 10.2 mg/dL (8.5-10.1)
[2023-06-30 23:16] LABS: ALBUMIN 3.6 g/dl (3.4-5.0); BLOOD UREA NITROGEN 36.5 mg/dL (7-18); MAGNESIUM 2.3 mg/dL (1.8-2.4)
[2023-06-30 23:19] LABS: CREATININE 1.3 mg/dL (0.55-1.3)
[2023-06-30 23:20] LABS: TOT PROT 8.2 g/dl (6.4-8.2)
[2023-06-30] MEDS: LACTATED RINGERS SOLUTION 1000 ML INFUS.BAG IV ONE (23:20)
[2023-06-30 23:21] LABS: BILIRUBIN,TOTAL 0.3 mg/dL (0.2-1)
[2023-06-30] MEDS: ACETAMINOPHEN 500 MG TABLET (FP) PO ONE (23:23)
[2023-06-30] MEDS: ACETAMINOPHEN 1000 MG/100 ML BAG IVPB ONE (23:23)
[2023-06-30 23:29] LABS: EPI CELLS 11 /uL (0-25.1); HYALINE CASTS 2 /uL (0-3.1); PH,URINE 5.5 (5.0-8.0); URINE APPEARANCE CLEAR; URINE BACTERIA 249 /uL (0-1359); URINE BILIRUBIN NEGATIVE (NEGATIVE); URINE COLOR YELLOW; URINE GLUCOSE (UA) 3+ (NEGATIVE); URINE KETONE NEGATIVE (NEGATIVE); URINE LEUK ESTERASE 2+ (NEGATIVE); URINE NITRITE NEGATIVE (NEGATIVE); URINE PROTEIN NEGATIVE (NEGATIVE); URINE RBC 14 /uL (0-23.9); URINE UROBILINOGEN 0.2 mg/dL (0.2-1.0); URINE WBC 517 /uL (0-25.8)
[2023-07-01] MEDS ORDERED: SULFAMETHOXAZOLE/TRIMETHOPRIM 800MG/160MG D.S. TABLET ONE (00:17)
[2023-07-01] MEDS: SULFAMETHOXAZOLE/TRIMETHOPRIM 800MG/160MG D.S. TABLET PO ONE (00:50)
== END 2023-07-01 00:51 | disposition home or self-care (01) ==
LOC: JER 21:32
PROC: 3E033NZ Introduction of Analgesics, Hypnotics, Sedatives into Peripheral Vein, Percutaneous Approach (ICD-10-PCS; principal; 2023-06-30)
DX: R10.32 Left lower quadrant pain (principal); N39.0 Urinary tract infection, site not specified
CPT/HCPCS: 36415; 80053; 81003; 83735; 84439; 84443; 84484; 85025; 87086; 99284-25; J0131